=== PATIENT | male | born 1965 | race Caucasian/White ===

== ENCOUNTER 2016-05-01 14:29 | Inpatient (IN) | payer OTHER, MEDICARE ==
[~2016-05-01] VITALS: Ht 182.9 cm; Wt 127.0 kg
[~2016-05-01 14:29] MED LIST: ATIVAN1 M1 PO; Artane PO; BACTRIM DS 8001 TAB PO; CARBAMAZEPINE200 MG PO; CARDIZEM CD 12120 MG PO; CIPROFLOXACIN500 MG PO; CLEOCIN HCL150 MG PO; CLINDAMYCIN HC300 M1 PO; DEPAKOTE ER 25250 MG PO; DEPAKOTE ER500 M1 PO; DEPAKOTE SPRIN125 M1 PO; DEPAKOTE500 MG PO; DILTIAZEM HCL240 MG PO; DIVALPROEX SOD500 MG PO; ELIQUIS5 M1 PO; ELIQUIS5 MG PO; FUROSEMIDE20 M1 PO; FUROSEMIDE20 MG PO; HALDOL DECA100 MG/ML IM; HALOPERIDO100 MG/1 M IM; HALOPERIDOL; HALOPERIDOL IM; LASIX20 MG PO; LASIX40 MG PO; LOPRESSOR 12.12.5 MG PO; LOPRESSOR 25MG25 MG PO; METOPROLOL TART50 M1 PO; NAPROSYN500 M1 PO; PROVENTIL HFA6.7 GM INH; TEGRETOL200 MG PO; TIGAN250 MG PO; TRIHEXYPHENIDYL2 M1 PO; TRIHEXYPHENIDYL2 M2 PO; TRIHEXYPHENIDYL5 MG PO; ULTRAM50 M1 PO; VIGAMOX3 ML OPH; [UNRECOGNIZED DRUG - CODE] PO
--- NOTE | 2016-05-01 14:39 | NUR ---
PT TO ED FOR ? ADMISSION FOR CELLULITIS TO RIGHT LEG. PT WAS SENT TO ED FROM WOUND CENTER. AFEBRILE. DENIES FEVERS AT HOME. STATES RIGHT LEG IS RED AND WARM TO TOUCH.
--- NOTE | 2016-05-01 15:29 | ED SKIN/ALLERGY COMPLAINT ---
History of Present Illness General Chief Complaint: Lower Extremity Problems Stated Complaint: RT LEG ? CELLULITIS Source: patient, old records Exam Limitations: no limitations Vital Signs & Intake/Output Vital Signs & Intake/Output Vital Signs Date Time Temp Pulse Resp B/P Pulse O2 O2 Flow FiO2 Ox Delivery Rate 05/01 1823 100.6 104 20 115/76 94 Room Air 05/01 1557 99.8 110 20 122/94 98 Room Air 05/01 1436 98.3 120 20 117/87 96 Room Air Allergies Coded Allergies: amoxicillin (From AUGMENTIN) (Severe, ANGIOEDEMA, RASH 05/16/15) clavulanic acid (From AUGMENTIN) (Severe, ANGIOEDEMA, RASH 05/16/15) Penicillins (SWELLING 05/16/15) Reconcile Medications Albuterol Sulfate (Proventil Hfa) 6.7 GM HFA.AER.AD 2 PUF INH Q4 PRN BREATHING PROBLEMS (Reported) Apixaban (Eliquis) 5 MG TABLET 1 TAB PO BID BLOOD THINNER (Reported) Divalproex Sodium (Depakote ER) 500 MG TAB.ER.24H 1 TAB PO 4 TIMES/DAY MENTAL HEALTH (Reported) 500 MG AM, 500 MG NOON, 500 MG JEANNE, 625 MG AT BED TIME Divalproex Sodium (Depakote) 125 MG TABLET.DR 1 TAB PO AT BED TIME MENTAL HEALTH (Reported) Furosemide 20 MG TABLET 1 TAB PO DAILY DIURETIC (Reported) Haloperidol Decanoate 100 MG/1 ML VIAL 0.9 ML IM Q2W MENTAL HEALTH (Reported) Metoprolol Tartrate 50 MG TABLET 1 TAB PO BID HEART/BP (Reported) Trihexyphenidyl HCl 2 MG TABLET 1 TAB PO TID ANTISPASMODIC (Reported) 2 MG AT 8 AM, 5 PM AND 4 MG AT BED TIME Triage Note: PT TO ED FOR ? ADMISSION FOR CELLULITIS TO RIGHT LEG. PT WAS SENT TO ED FROM WOUND CENTER. AFEBRILE. DENIES FEVERS AT HOME. STATES RIGHT LEG IS RED AND WARM TO TOUCH. Triage Nurses Notes Reviewed? yes Onset: Abrupt Duration: getting worse Severity: severe Severity Numbers: 7 Location: extremities Possible Factors: no cause identified HPI: Patient is a 50-year-old man with past medical history significant for atrial fibrillation(on elliquis and cardizem), lymphedema,bipolar 1 disorder , schizophrenia who was advised to present to the emergency room by wound care for concerns of right lower extremity cellulitis patient describes a 24-hour history of gradual onset of worsening pain swelling and redness to his extremity. Patient has had multiple episodes of THIS in the past. Denies any shortness of breath fevers or chills. (VARUN GAXIOLA) Past History Travel History Traveled to [place] past 21 day No Medical History Any Pertinent Medical History? see below for history Neurological: NONE EENT: HEARING LOSS Cardiovascular: AFIB Respiratory: asthma Gastrointestinal: HEARTBURN Hepatic: NONE Renal: NONE Musculoskeletal: CHIP LEFT WRIST. Psychiatric: schizo affective disorder, rule out bipolar features Endocrine: NONE Blood Disorders: anemia Cancer(s): NONE TRUCKSMITH/Reproductive: NONE History of MRSA: Yes History of VRE: No History of CDIFF: No Tetanus Vaccine: 05/08/12 Surgical History Surgical History: non-contributory, N Psychosocial History Who do you live with Family Services at Home Nursing What is your primary language Bhutanese Tobacco Use: Quit >30 days ago ETOH Use: denies use Illicit Drug Use: denies illicit drug use Family History Family History, If Any: MOTHER FH: diabetes mellitus Hx Contributory? No (VARUN GAXIOLA) Review of Systems Review of Systems Constitutional: Reports: no symptoms. EENTM: Reports: no symptoms. Respiratory: Reports: no symptoms. Cardiovascular: Reports: see HPI, peripheral edema. GI: Reports: no symptoms. Genitourinary: Reports: no symptoms. Musculoskeletal: Reports: no symptoms. Skin: Reports: see HPI, erythema. Neurological/Psychological: Reports: no symptoms. Hematologic/Endocrine: Reports: no symptoms. Immunologic/Allergic: Reports: no symptoms. All Other Systems: Reviewed and Negative (VARUN GAXIOLA) Physical Exam Physical Exam General Appearance: no apparent distress, alert, comfortable Skin: intact Comments: Well-developed well-nourished person in no acute distress HEENT: Normal EENT exam, Neck: Supple, no lymphadenopathy, normal range of motion without pain or tenderness Back: Nontender, no CVA tenderness. Cardiovascular: Regular rate and rhythms no murmurs rubs or gallops, normal JVP Respiratory: Chest nontender. No respiratory distress.breath sounds clear to auscultation bilaterally Abdomen: Soft, nontender nondistended, no appreciable organomegaly. Normal bowel sounds. No ascites Extremity: No edema, no calf tenderness to palpation, normal and equal pulses. Neuro: Alert oriented x3, motor sensory normal, Psych: Mood and affect is normal, memory and judgment is normal.t. Diagram Body: 1) Circumferential erythema warmth tenderness noted and swelling (SONIDO PRUETT,VARUN) Progress Differential Diagnosis: abscess/cellulitis, allergic reaction, anaphylaxis, angioedema, drug reaction, erythema multiforme, lyme disease, meningitis/sepsis, RMSF, scarlet fever, shingles, syphilis/gonococcemia, urticaria, SEPSIS dvt Plan of Care: Orders Procedure Date/time Status Heart Healthy Diet 05/02 B Active HEPATIC FUNCTION PANEL 05/02 06 Active CBC WITHOUT DIFFERENTIAL 05/02 06 Active BASIC ELECTROLYTES PLUS BUN&CR 05/02 06 Active Vital Signs 05/01 1938 Active Teach/Educate 05/01 1938 Active Nutritional Intake, Monitor 05/01 1938 Active Isolation 05/01 1938 Active Intake & Output 05/01 1938 Active Patient Care Conference 05/01 1938 Active Activity/Ambulation 05/01 1938 Active Pathway - chart 05/01 192 Active House Staff 05/01 192 Active Patient Data 05/01 1921 Active Code Status 05/01 1921 Active Admit to inpatient 05/01 1802 Active Vital Signs 05/01 1802 Active Patient Data 05/01 1758 Active EKG 05/01 1757 Active Intake & Output 05/01 1740 Active BLOOD CULTURE 05/01 1543 Active COMPREHENSIVE METABOLIC PANEL 05/01 1543 Complete CBC WITHOUT DIFFERENTIAL 05/01 1543 Complete VTE Mechanical Prophylaxis 05/01 UNK Active Current Medications Sig/Fatou Start time Last Medication Dose Stop Time Status Admin Furosemide 20 MG DAILY 05/02 1000 AC (Lasix) Vancomycin HCl 1,000 MG DAILY 05/02 1000 AC Dextrose/Water 250 ML (D5W) Apixaban 5 MG BID 05/01 2199 AC (Eliquis) Divalproex Sodium 125 MG AT BEDTIME 05/01 2199 AC (Depakote) Metoprolol Tartrate 50 MG BID 05/01 2199 AC (Lopressor) Trihexyphenidyl HCl 2 MG TID 05/01 2199 AC (Artane) Divalproex Sodium 500 MG FOUR TIMES A DAY 05/01 2100 AC (Depakote) Clindamycin 600 MG ONCE ONE 05/01 1630 CAN (Cleocin) 05/01 1659 Dextrose/Water 50 ML (D5W) Laboratory Tests 05/01/16 1540: Anion Gap 13, Estimated GFR > 60, BUN/Creatinine Ratio 20.0, Glucose 92, Calcium 9.8, Total Bilirubin 1.5 H, AST 59, ALT 56, Alkaline Phosphatase 55, Total Protein 8.0, Albumin 4.5, Globulin 3.5, Albumin/Globulin Ratio 1.3, CBC w Diff MAN DIFF ORDERED, RBC 4.46 L, MCV 95.1 H, MCH 31.5 H, RDW 14.6 H, MPV 8.1, Segmented Neutrophils 49, Band Neutrophils 2, Lymphocytes 34, Monocytes 15 H, Platelet Estimate DECREASED, Anisocytosis 1+, Macrocytic Cells 1+, PUBS MCHC 33.1 Microbiology 05/01 1550 BLOOD: Blood Culture - RECD 05/01 1546 BLOOD: Blood Culture - RECD Discussed disposition plan with Dr. Vargas who agrees with [facility] admission patient also has significant concerns of MRSA where IV clindamycin in the past was UNresponsive to patient's last cellulitis infection which vancomycin did improve patient's symptoms this was administered (VARUN GAXIOLA) Initial ED EK BPM MOTION ARTIFACT NOTED SINUS RHYTHM UNCHANGED FROM PREVIOUS Prior EKG: unchanged (VARUN GAXIOLA) Departure Departure Disposition: STILL A PATIENT Condition: Stable Clinical Impression Primary Impression: Cellulitis of right leg Referrals: GLADIS VARGAS MD (PCP/Family) Departure Forms: Customer Survey General Discharge Information Admission Note Spoke With: GLADIS VARGAS MD Documentation of Exam: Documentation of any treatments & extenuating circumstances including Concerns Regarding Discharge (functional status, medication knowledge or non-compliance, living conditions, etc.) that warrant an admission rather than observation: [ Discussed patient with Dr. Vargas who agrees with general medicine admission for concerns of acute onset of right leg cellulitis which patient has a significant history of previous episodes and MRSA positive in which patient requires infectious disease consultation, IV antibiotics and close monitoring of significant onset of right leg cellulitis.] (VARUN GAXIOLA) PA/ARBORICULTURE INSTRUCTOR Co-Sign Statement Statement: ED Attending supervision documentation- [x] I saw and evaluated the patient. I have also reviewed all the pertinent lab results and diagnostic results. I agree with the findings and the plan of care as documented in the PA's/ARBORICULTURE INSTRUCTOR's documentation. [] I have reviewed the ED Record and agree with the PA's/ARBORICULTURE INSTRUCTOR's documentation. [] Additions or exceptions (if any) to the PAs/ARBORICULTURE INSTRUCTOR's note and plan are summarized below: [] (AUDREY SHERWOOD DO)
--- NOTE | 2016-05-01 15:58 | NUR ---
LABS AND BC XS 2 SENT AT THIS TIME
[2016-05-01 16:00] LABS: HEMATOCRIT 42.4 % (42-52); MEAN CORPUSCULAR HGB 31.5 PG (27.0-31.0); MEAN CORPUSCULAR HGB CONC 33.1 G/DL (33.0-37.0); MEAN CORPUSCULAR VOLUME 95.1 FL (80.0-94.0); MEAN PLATELET VOLUME 8.1 FL (7.4-10.4); PLATELET COUNT 128 /CUMM (130-400); RBC DISTRIBUTION WIDTH 14.6 % (11.5-14.5); RED BLOOD CELL CT 4.46 /CUMM (4.70-6.10); WHITE BLOOD CELL COUNT 11.2 /CUMM (4.8-10.8)
--- NOTE | 2016-05-01 17:41 | NUR ---
IV HEPLOCK # [address] PLACE TO TERRANCE BY SHARI ORTIZ, IV VANCOMYCIN 1GM INFUSING WITHOUT DIFFICULTY AT THIS TIME. PT RESTING COMFORTALBY ON STRETCHER AT THIS TIME. BILATERAL LOWER LEGS EDEMATOUS AND RED, RLE REDNESS GREATER THAN LEFT.
--- NOTE | 2016-05-01 18:09 | NUR ---
PT OK TO TAKE PM MEDS PER VARUN PRUETT. CMR UPDATED WITH PT, FOR ADMISSION. IV VANCOMYCIN CONTINUES TO INFUSE WITHOUT DIFFICULTY.
--- NOTE | 2016-05-01 18:53 | NUR ---
PT BED ASSIGNMENT IS 205-
--- NOTE | 2016-05-01 19:17 | NUR ---
REPORT CALLED TO [address] [place] [address] LUCY DANIEL CALLED FOR TRANSPORT TO ROOM # [id number].
--- NOTE | 2016-05-01 19:24 | History & Physical ---
See Addendum HYACINTH DORADO 05/01/161922: General Information and HPI MD Statement: I have seen and personally examined JACK HALE and documented this H&P. The patient is a 50 year old M who presented with a patient stated chief complaint of pain in his left lower extremity and swelling 1 day. Source of Information: patient, old records Exam Limitations: no limitations History of Present Illness: Mr Hale is a 50-year-old man was known to be in his usual state of health until one day ago. He has a past history of atrial fibrillation (on NOAC), bipolar disorder, schizophrenia, hearing loss, chronic bilateral lower extremity edema. He was sent from the wound clinic, after it was noticed that, he had an increased redness and swelling of right lower extremity. As per the patient, he noticed pain and redness in right lower extremity that started 1 day ago. Pain severity 7/10, with no radiation, with inability to walk due to pain. Redness noticed one day ago, after he "popped" , small blister-like lesion on right lower extremity. Noticed being hot, but did not record his temperature. Reported increased shortness of breath, after doing unusual activity such as walking for longer distance. No change in pedal edema. No chest pain, palpitations were noted. No abdominal pain, changes in bladder or bowel habit. no discharge from right leg. Follows Dr. Martinez (cardiology), Dr. Holland (vascular surgeon for venous stasis) , Dr. Vargas for PCP. Allergies/Medications Allergies: Coded Allergies: amoxicillin (From AUGMENTIN) (Severe, ANGIOEDEMA, RASH 05/16/15) clavulanic acid (From AUGMENTIN) (Severe, ANGIOEDEMA, RASH 05/16/15) Penicillins (SWELLING 05/16/15) Past History Travel History Traveled to [place] past 21 day No Medical History Neurological: NONE EENT: HEARING LOSS Cardiovascular: AFIB Respiratory: asthma Gastrointestinal: HEARTBURN Hepatic: NONE Renal: NONE Musculoskeletal: CHIP LEFT WRIST. Psychiatric: schizo affective disorder, rule out bipolar features Endocrine: NONE Blood Disorders: anemia Cancer(s): NONE CHRONIC DISEASE MANAGER/Reproductive: NONE History of MRSA: Yes Active MRSA Infection: Yes History of VRE: No History of CDIFF: No Tetanus Vaccine: 05/08/12 Surgical History Surgical History: non-contributory, N Past Family/Social History Family History Relations & Conditions if any MOTHER FH: diabetes mellitus Psychosocial History Services at Home: Nursing ETOH Use: denies use Illicit Drug Use: denies illicit drug use Review of Systems Review of Systems Constitutional: Reports: fever, malaise, weakness. Denies: chills. EENTM: Denies: visual changes. Cardiovascular: Reports: edema. Denies: chest pain. Respiratory: Reports: short of breath. Denies: cough, orthopnea. GI: Denies: abdominal pain, melena. Genitourinary: Denies: frequency, nocturia. Musculoskeletal: Denies: back pain, joint pain. Skin: Reports: change in skin color, dryness, erythema, lesions. Neurological/Psychological: Denies: anxiety, emotional problems. Hematologic/Endocrine: Denies: bruising, bleeding. Exam & Diagnostic Data Last 24 Hrs of Vital Signs/I&O Vital Signs Date Time Temp Pulse Resp B/P Pulse O2 O2 Flow FiO2 Ox Delivery Rate 05/01 2201 90 118/86 05/01 1959 99.9 100 19 118/86 91 Room Air 05/01 1823 100.6 104 20 115/76 94 Room Air 05/01 1557 99.8 110 20 122/94 98 Room Air 05/01 1436 98.3 120 20 117/87 96 Room Air Intake & Output 05/01 1600 05/01 0800 05/01 0000 Intake Total Output Total Balance Patient 280 lb Weight Physical Exam General Appearance Alert, Oriented X3, Cooperative, No Acute Distress Skin edema and tenderness on right lower extremity extending from left ankle up to right knee. HEENT Atraumatic, PERRLA, EOMI Neck Supple, No JVD, No thryomegaly, +2 Carotid Pulse wo Bruit Lymphatic Cervical nl Cardiovascular Regular Rate, Normal S1, Normal S2, No Murmurs, Gallops Lungs Clear to Auscultation, Normal Air Movement Abdomen Normal Bowel Sounds, Soft, No Tenderness, No Hepatospenomegaly Neurological Normal Speech, Strength at 5/5 X4 Ext, Normal Tone, Sensation Intact, Cranial Nerves 3-12 NL, Reflexes 2+ Extremities No Clubbing, No Cyanosis, Normal Pulses, venous stasis-related discoloration bilateral lower extremities extending up to knees Vascular Pulses Symmetrical Assessment/Plan Assessment: He is a middle-aged man with history of bipolar disorder is being evaluated for pain and swelling of right lower extremity likely from cellulitis. At the time of admission, temperature 98.3, pulse rate 120, respiratory rate 20, blood pressure 117/87, pulse ox-96% on room air. Laboratory findings indicated WBC 7.2, hemoglobin 14.0, electrolytes-sodium 133, potassium 4.4, BUN 14, serum creatinine 0.7, total bilirubin 1.5 (slightly elevated), AST 59, AST 56 ( slightly elevated likely hepatic steatosis), alkaline phosphatase 55. Differential diagnosis: #1 cellulitis of right lower extremity#2 chronic venous stasis Below is the problem list and plan: #1 swelling and redness of right lower extremity-likely due to cellulitis. Low- grade fever and leukocytosis noted. However, no band neutrophils were seen. Incidental finding of monocytosis seen, indicating an sub-acute infection. Patient was started on vancomycin. As per the patient, he is severely allergic to penicillin. Continue to monitor fever and leukocytosis. Follow blood cultures. #2 mental health-continue home dose of Depakote. Continue to hold Haldol reassess in the a.m. #3 atrial fibrillation-on anticoagulation and rate controlling medication. EKG revealed pulse rate 101, QTc 460. Continue to monitor closely. #4 DVT prophylaxis- Eliquis. #5 diet-CHF diet. As Ranked By This Provider Problem List: 1. Cellulitis of right leg 2. Blister (nonthermal), left lower leg, initial encounter Core Measures/Miscellaneous Acute Coronary Syndrome ACS Diagnosis: No Cerebrovascular Accident CVA/TIA Diagnosis: No Congestive Heart Failure CHF Diagnosis: No Venous Thromboembolism VTE Risk Factors: Acute medical illness, Age > 40 VTE Prophylaxis Ordered Inpt: Pharm- Eliquis No [facility] VTE prophylaxis d/t: No contraindications No VTE Pharm Prophylaxis d/t: No contraindications VTE Diagnosis: No VTE Type: NONE VTE Confirmed by (Test): NONE Severe Sepsis Severe Sepsis Present: No Septic Shock Septic Shock Present: No Miscellaneous Documentation Attending Case Discussed With: GLADIS VARGAS MD Primary Care Physician: GLADIS VARGAS MD Patient sees these Specialists Dr. Skyler Acosta Level of Patient Care: General Medicine GIULIANO RIOS 05/01/161944: General Information and HPI Allergies/Medications Home Med list Albuterol Sulfate (Proventil Hfa) 6.7 GM HFA.AER.AD 2 PUF INH Q4 PRN BREATHING PROBLEMS (Reported) Apixaban (Eliquis) 5 MG TABLET 1 TAB PO BID BLOOD THINNER (Reported) Divalproex Sodium (Depakote ER) 500 MG TAB.ER.24H 1 TAB PO 4 TIMES/DAY MENTAL HEALTH (Reported) 500 MG AM, 500 MG NOON, 500 MG JEANNE, 625 MG AT BED TIME Divalproex Sodium (Depakote) 125 MG TABLET.DR 1 TAB PO AT BED TIME MENTAL HEALTH (Reported) Furosemide 20 MG TABLET 1 TAB PO DAILY DIURETIC (Reported) Haloperidol Decanoate 100 MG/1 ML VIAL 0.9 ML IM Q2W MENTAL HEALTH (Reported) Metoprolol Tartrate 50 MG TABLET 1 TAB PO BID HEART/BP (Reported) Trihexyphenidyl HCl 2 MG TABLET 1 TAB PO TID ANTISPASMODIC (Reported) 2 MG AT 8 AM, 5 PM AND 4 MG AT BED TIME Resident Review Statement Resident Statement: agreed with commander internal affairs Other Findings: He is 50-year-old man with past medical history of atrial fibrillation on adequate, bipolar, schizophrenia, asthma, diastolic heart failure, chronic bilateral lower extremity edema and venous stasis changes, obstructive sleep apnea on CPAP at night, history of of MRSA positive in nares and C. difficile was sent in from [facility] for right lower extremity redness and swelling. Patient reports having a small pimple on lateral side of right lower extremity that he scraped off yesterday. He noticed mild redness and swelling yesterday but when he woke up this morning with redness and swelling was increased. He was also feeling pain in his leg was warm. He denies any fever, chills. Other review of systems negative. He lives with his friend. Walks with cane. Vitals on admission: Temperature 98.3 that went up to 100.6, pulse 120, respiratory rate 20, blood pressure 117/87 oxygen saturation 96% on room air Positive physical exam findings: Irregularly irregular on Cardec auscultation. Right lower extremity is red, warm and swollen. Tender to touch. Chronic bilateral lower extremity swelling with venous stasis changes. R>L. fungal infection of toes. Pertinent labs: WBC count 11.2, sodium 133 (baseline), total bili 1.5 EKG: Atrial fibrillation with no acute ST-T wave changes Assessment and plan He is 50-year-old man with past medical history of atrial fibrillation on adequate, bipolar, schizophrenia, asthma, diastolic heart failure, chronic bilateral lower extremity edema and venous stasis changes, obstructive sleep apnea on CPAP at night, history of of MRSA positive in nares and C. difficile is going to be admitted on general medicine floor for right lower extremity cellulitis. Vitals every shift. We will continue IV vancomycin. Follow-up blood cultures. Leg elevation. Continue his home medications. Patient receives 0.9 mL IM Haldol every 2 weeks. I'm holding it right now. If patient becomes agitated or irritable that we can give him low dose of by mouth/IM Haldol. ID consult in a.m. DVT prophylaxis, patient is on Eliquis Heart healthy diet Pain management pathway Full code
[2016-05-01] MEDS ORDERED: DEPAKOTE125 M1 PO (19:35)
--- NOTE | 2016-05-01 19:55 | Admission Certification ---
Admission Certification Certification Statement - As attending physician, I certify that at the time of - admission, based on clinical presentation, severity of - symptoms, need for further diagnostic testing and - therapeutic interventions, and risk of adverse outcomes - without in-hospital treatment, in my clinical assessment, - this patient requires an acute hospital stay for a minimum - of two nights or longer. I have also considered psychsocial - factors such as support system, advanced age, financial - issues, cognitive issues, and failed out-patient treatments, - past re-admission history, safety of patient, and lack of - compliance as applicable. Specific rationale supporting this admission is: Recurring cellulitis of right leg needs IV antibiotics
--- NOTE | 2016-05-01 19:58 | PN- Att Addend ---
Attending Addendum Attending Brief Note 50 year old male again started with increased redness of the right leg went to wound center and was sent to the ER needs IV antibiotics check cultures ID [email or web address] , follow up by wound center and probably his vascular specialist. Vital Signs Date Time Temp Pulse Resp B/P Pulse O2 O2 Flow FiO2 Ox Delivery Rate 05/01 1823 100.6 104 20 115/76 94 Room Air 05/01 1557 99.8 110 20 122/94 98 Room Air 05/01 1436 98.3 120 20 117/87 96 Room Air Laboratory Tests 05/01/16 1540: Anion Gap 13, Estimated GFR > 60, BUN/Creatinine Ratio 20.0, Glucose 92, Calcium 9.8, Total Bilirubin 1.5 H, AST 59, ALT 56, Alkaline Phosphatase 55, Total Protein 8.0, Albumin 4.5, Globulin 3.5, Albumin/Globulin Ratio 1.3, CBC w Diff MAN DIFF ORDERED, RBC 4.46 L, MCV 95.1 H, MCH 31.5 H, RDW 14.6 H, MPV 8.1, Segmented Neutrophils 49, Band Neutrophils 2, Lymphocytes 34, Monocytes 15 H, Platelet Estimate DECREASED, Anisocytosis 1+, Macrocytic Cells 1+, PUBS MCHC 33.1 Microbiology Date/Time Procedure - Status Source Growth 05/01 1550 Blood Culture - RECD BLOOD Orders Procedure Date/time Status Heart Healthy Diet 05/02 B Active HEPATIC FUNCTION PANEL 05/02 0600 Active CBC WITHOUT DIFFERENTIAL 05/02 0600 Active BASIC ELECTROLYTES PLUS BUN&CR 05/02 0600 Active Vital Signs 05/01 193 Active Teach/Educate 05/01 1938 Active Nutritional Intake, Monitor 05/01 1938 Active Isolation 05/01 193 Active Intake & Output 05/01 1938 Active Patient Care Conference 05/01 1938 Active Activity/Ambulation 05/01 1938 Active Pathway - chart 05/01 192 Active House Staff 05/01 1921 Active Patient Data 05/01 1921 Active Code Status 05/01 1921 Active Admit to inpatient 05/01 1802 Active Vital Signs 05/01 1802 Active Patient Data 05/01 1758 Active EKG 05/01 1757 Active Intake & Output 05/01 1740 Active BLOOD CULTURE 05/01 1543 Active COMPREHENSIVE METABOLIC PANEL 05/01 1543 Complete CBC WITHOUT DIFFERENTIAL 05/01 1543 Complete VTE Mechanical Prophylaxis 05/01 UNK Active
[2016-05-01 19:59] VITALS: BP 118/86
--- NOTE | 2016-05-02 | NUR ---
NURSING NOTE; LATE ENTRY; PT ADMITTED TO ROOM 205- FROM ER VIA STRETCHER AT 1940. PT AMBULATED TO BED WITH AN ASSISTX1, UNSTEADY GAIT NOTED. PT A/OX3, PT DENIES CP, PT DENIES SOB. PT RLE EDEMATOUS, SWOLLEN, RED AND WARM TO TOUCH. PT LLE BROWN DISCOLORATION. +PULSES PRESENT. PT DENIES PAIN AT THIS TIME. PT ORIENTED TOR OOM AND CALL GUNN. WILL CONTINUE TO MONITOR.
[2016-05-02 00:08] VITALS: BP 104/78
[2016-05-02 07:58] LABS: ABSOLUTE BASOPHIL COUNT 0 /CUMM (0.0-0.2); ABSOLUTE EOSINOPHIL COUNT 0 /CUMM (0.0-0.7); ABSOLUTE GRANULOCYTE CT 3.9 /CUMM (1.4-6.5); ABSOLUTE LYMPH COUNT 3.3 /CUMM (1.2-3.4); ABSOLUTE MONOCYTE COUNT 2.1 /CUMM (0.10-0.60); BASOPHIL % 0.3 % (0.0-2.0); EOSINOPHIL % 0.3 % (0-5); GRANULOCYTE % 41.3 % (42.2-75.2); HEMATOCRIT 39.9 % (42-52); MEAN CORPUSCULAR VOLUME 94.1 FL (80.0-94.0); MEAN PLATELET VOLUME 8.1 FL (7.4-10.4); PLATELET COUNT 104 /CUMM (130-400); RBC DISTRIBUTION WIDTH 14.3 % (11.5-14.5); RED BLOOD CELL CT 4.24 /CUMM (4.70-6.10)
--- NOTE | 2016-05-02 08:00 | PN- Housestaff ---
Subjective Follow-up For: Cellulitis of left lower extremity Subjective: Patient comfortable this morning. Low-grade temperature 100.6 in the last 24 hours. Tenderness and erythema decreased on the right lower extremity. Vitals remain stable. Review of Systems Constitutional: Reports: see HPI. Objective Last 24 Hrs of Vital Signs/I&O Vital Signs Date Time Temp Pulse Resp B/P Pulse O2 O2 Flow FiO2 Ox Delivery Rate 05/02 0554 87 96 05/02 0129 78 95 05/02 0008 98.2 82 20 104/78 95 Room Air 05/01 2201 90 118/86 05/01 1959 99.9 100 19 118/86 91 Room Air 05/01 1823 100.6 104 20 115/76 94 Room Air 05/01 1557 99.8 110 20 122/94 98 Room Air 05/01 1436 98.3 120 20 117/87 96 Room Air Intake & Output 05/02 1600 05/02 0800 05/02 0000 Intake Total 700 Output Total 250 Balance 450 Intake, IV 250 Intake, Oral 450 Output, Urine 250 Patient 280 lb Weight Physical Exam General Appearance: No Acute Distress Other Physical Findings: General Exam: AAOx3, No acute distress, Skin: No rashes, no breakdown HEENT: PERRLA, EOMI Neck: Supple, No JVD No cervical lymphadenopathy CVS: Reg Rate, Normal S1,S2, No MGR Resp: Normal air entry, no ronchi/rales Abdomen: Soft, No tenderness, Normal Bowel Sounds Neuro: Normal Speech, Strength 5/5 b/l x 4 extremities, Sensation intact, CN III -XII NL, Reflexes 2+ Extremities: No cyanosis, No pedal edema, erythema on the right lower extremity extending from ankle to middle of correa. Current Medications: Current Medications Sig/Fatou Start time Last Medication Dose Route Stop Time Status Admin Acetaminophen 650 MG Q6P PRN 05/01 2030 AC PO Apixaban 5 MG BID 05/01 2199 AC PO Clindamycin 600 MG ONCE ONE 05/01 1630 CAN Dextrose/Water 50 ML IV 05/01 165 Divalproex Sodium 125 MG AT BEDTIME 05/01 2199 AC 05/01 PO 215 Divalproex Sodium 500 MG FOUR TIMES A DAY 05/01 2100 AC 05/01 PO 204 Furosemide 20 MG DAILY 05/02 1000 AC PO Metoprolol Tartrate 50 MG BID 05/01 2199 AC PO Trihexyphenidyl HCl 2 MG TID 05/01 2199 AC 05/01 PO 2159 Vancomycin HCl 1,000 MG Q24H 05/02 1700 AC Dextrose/Water 250 ML IV Vancomycin HCl 0 .STK-MED ONE 05/01 1732 DC .ROUTE Vancomycin HCl 1,000 MG ONCE ONE 05/01 1715 DC 05/01 Dextrose/Water 250 ML IV 05/01 1814 1730 Last 24 Hrs of Lab/Tushar Results Last 24 Hrs of Labs/Mics: Laboratory Tests 05/02/16 0630: Sodium Pending, Potassium Pending, Chloride Pending, Carbon Dioxide Pending, Anion Gap Pending, BUN Pending, Creatinine Pending, BUN/Creatinine Ratio Pending , Total Bilirubin Pending, Direct Bilirubin Pending, AST Pending, ALT Pending, Alkaline Phosphatase Pending, Total Protein Pending, Albumin Pending, CBC w Diff Pending, WBC Pending, RBC Pending, Hgb Pending, Hct Pending, MCV Pending, MCH Pending, RDW Pending, Plt Count Pending, MPV Pending, PUBS MCHC Pending 05/01/16 1540: Anion Gap 13, Estimated GFR > 60, BUN/Creatinine Ratio 20.0, Glucose 92, Calcium 9.8, Total Bilirubin 1.5 H, AST 59, ALT 56, Alkaline Phosphatase 55, Total Protein 8.0, Albumin 4.5, Globulin 3.5, Albumin/Globulin Ratio 1.3, CBC w Diff MAN DIFF ORDERED, RBC 4.46 L, MCV 95.1 H, MCH 31.5 H, RDW 14.6 H, MPV 8.1, Segmented Neutrophils 49, Band Neutrophils 2, Lymphocytes 34, Monocytes 15 H, Platelet Estimate DECREASED, Anisocytosis 1+, Macrocytic Cells 1+, PUBS MCHC 33.1 Microbiology 05/01 1550 BLOOD: Blood Culture - RECD 05/01 1546 BLOOD: Blood Culture - RECD Assessment/Plan Assessment: He is a middle-aged man with history of bipolar disorder is being evaluated for pain and swelling of right lower extremity likely from cellulitis. Differential diagnosis: #1 cellulitis of right lower extremity#2 chronic venous stasis Below is the problem list and plan: #1 swelling and redness of right lower extremity-likely due to cellulitis. Low- grade fever and leukocytosis noted. However, no band neutrophils were seen. Incidental finding of monocytosis seen, indicating an sub-acute infection. Patient was started on vancomycin, which has been changed to doxycycline as per infectious disease microsoft dynamics consultant. As per the patient, he is severely allergic to penicillin. Continue to monitor fever and leukocytosis. Follow blood cultures. #2 mental health-continue home dose of Depakote. Continue to hold Haldol reassess in the a.m. #3 atrial fibrillation-on anticoagulation and rate controlling medication. Continue to monitor closely. #4 DVT prophylaxis- Eliquis. #5 diet-CHF diet. Problem List: 1. Cellulitis of right leg 2. Blister (nonthermal), left lower leg, initial encounter 3. Chronic pain 4. Dependent edema Pain Ratin Pain Location: Right lower extremity Pain Goal: Pain 4 or less Pain Plan: Tylenol when necessary Tomorrow's Labs & Rationales: Basic electrolyte panel-patient had mild hyponatremia. To monitor. DVT/Prophylaxis: pharmacological (eliquis)
[2016-05-02 08:25] VITALS: BP 130/72
[2016-05-02 09:04] LABS: WHITE BLOOD CELL COUNT 9.4 /CUMM (4.8-10.8)
--- NOTE | 2016-05-02 09:58 | PN- Att Addend ---
Attending Addendum Attending Brief Note Patient sitting in the chair, the leg seems little bit less swollen is still red. Temp max was 100.6 last evening after brighter this morning white count is down a little bit. No other major changes will continue antibiotics IV get ID input to make sure were giving him the right antibiotic, also check the blood cultures. Current Medications Sig/Fatou Start time Last Medication Dose Route Stop Time Status Admin Acetaminophen 650 MG Q6P PRN 05/01 2030 AC PO Apixaban 5 MG 0800,1700 05/02 1700 AC PO Apixaban 5 MG BID 05/01 2200 DC 05/02 PO 0828 Clindamycin 600 MG ONCE ONE 05/01 1630 CAN Dextrose/Water 50 ML IV 05/01 165 Divalproex Sodium 125 MG AT BEDTIME 05/01 2199 AC 05/01 PO 2159 Divalproex Sodium 500 MG FOUR TIMES A DAY 05/01 2100 AC 05/02 PO 0828 Furosemide 20 MG DAILY 05/02 1000 AC 05/02 PO 0828 Metoprolol Tartrate 50 MG 0800,1700 05/02 1700 AC PO Metoprolol Tartrate 50 MG BID 05/01 2200 DC 05/02 PO 0828 Trihexyphenidyl HCl 2 MG TID 05/01 220 AC 05/02 PO 0828 Vancomycin HCl 1,000 MG Q24H 05/02 1700 AC Dextrose/Water 250 ML IV Vancomycin HCl 0 .STK-MED ONE 05/01 1732 DC .ROUTE Vancomycin HCl 1,000 MG ONCE ONE 05/01 1715 DC 05/01 Dextrose/Water 250 ML IV 05/01 1814 1730 Laboratory Tests 05/02/16 0630: Anion Gap 9, Estimated GFR > 60, BUN/Creatinine Ratio 23.3, Total Bilirubin 1.6 H, Direct Bilirubin 0.8 H, AST 47, ALT 49, Alkaline Phosphatase 38, Total Protein 6.7, Albumin 3.5, CBC w Diff NO MAN DIFF REQ, RBC 4.24 L, MCV 94.1 H, MCH 32.0 H, RDW 14.3, MPV 8.1, Gran % 41.3 L, Lymphocytes % 35.5, Monocytes % 22.6 H, Eosinophils % 0.3, Basophils % 0.3, Absolute Granulocytes 3.9, Absolute Lymphocytes 3.3, Absolute Monocytes 2.1 H, Absolute Eosinophils 0, Absolute Basophils 0, PUBS MCHC 34.0 05/01/16 1540: Anion Gap 13, Estimated GFR > 60, BUN/Creatinine Ratio 20.0, Glucose 92, Calcium 9.8, Total Bilirubin 1.5 H, AST 59, ALT 56, Alkaline Phosphatase 55, Total Protein 8.0, Albumin 4.5, Globulin 3.5, Albumin/Globulin Ratio 1.3, CBC w Diff MAN DIFF ORDERED, RBC 4.46 L, MCV 95.1 H, MCH 31.5 H, RDW 14.6 H, MPV 8.1, Segmented Neutrophils 49, Band Neutrophils 2, Lymphocytes 34, Monocytes 15 H, Platelet Estimate DECREASED, Anisocytosis 1+, Macrocytic Cells 1+, PUBS MCHC 33.1 Microbiology Date/Time Procedure - Status Source Growth 05/01 1550 Blood Culture - RECD BLOOD 05/01 1546 Blood Culture - RECD BLOOD Vital Signs Date Time Temp Pulse Resp B/P Pulse O2 O2 Flow FiO2 Ox Delivery Rate 05/02 0825 98.1 94 20 130/72 91 Room Air 05/02 0554 87 96
--- NOTE | 2016-05-02 13:53 | Cons- Infect Disease ---
General Information and HPI Consulting Request Date of Consult: 05/02/16 Requested By: GLADIS DIXON MD Reason for Consult: R LE cellulitis Source of Information: patient, primary team Exam Limitations: no limitations History of Present Illness: 50-year-old man was known with atrial fibrillation (on NOAC), bipolar disorder, schizophrenia, hearing loss, chronic bilateral lower extremity edema was sent to the hospital from the wound clinic on 05/01/16, after it was noticed that, he had an increased redness and swelling of right lower extremity. 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 Intial lesion on R LE "popped" and was small blister-like. He felt warm, but did not record his temperature. Treated w/ iv vancomycin since admission is clinically improving, although low zain fever 100.6 F past 24 h. He denies chest pain, palpitations, abdominal pain, changes in bladder or bowel movemnets. Allergies/Medications Allergies: Coded Allergies: amoxicillin (From AUGMENTIN) (Severe, ANGIOEDEMA, RASH 05/16/15) clavulanic acid (From AUGMENTIN) (Severe, ANGIOEDEMA, RASH 05/16/15) Penicillins (SWELLING 05/16/15) Home Med List: Albuterol Sulfate (Proventil Hfa) 6.7 GM HFA.AER.AD 2 PUF INH Q4 PRN BREATHING PROBLEMS (Reported) Apixaban (Eliquis) 5 MG TABLET 1 TAB PO BID BLOOD THINNER (Reported) Divalproex Sodium (Depakote ER) 500 MG TAB.ER.24H 1 TAB PO 4 TIMES/DAY MENTAL HEALTH (Reported) 500 MG AM, 500 MG NOON, 500 MG JEANNE, 625 MG AT BED TIME Divalproex Sodium (Depakote) 125 MG TABLET.DR 1 TAB PO AT BED TIME MENTAL HEALTH (Reported) Furosemide 20 MG TABLET 1 TAB PO DAILY DIURETIC (Reported) Haloperidol Decanoate 100 MG/1 ML VIAL 0.9 ML IM Q2W MENTAL HEALTH (Reported) Metoprolol Tartrate 50 MG TABLET 1 TAB PO BID HEART/BP (Reported) Trihexyphenidyl HCl 2 MG TABLET 1 TAB PO TID ANTISPASMODIC (Reported) 2 MG AT 8 AM, 5 PM AND 4 MG AT BED TIME Current Medications: Current Medications Sig/Fatou Start time Last Medication Dose Route Stop Time Status Admin Acetaminophen 650 MG Q6P PRN 05/01 2030 AC PO Apixaban 5 MG 0800,1700 05/02 1700 AC PO Apixaban 5 MG BID 05/01 2200 DC 05/02 PO 0828 Clindamycin 600 MG ONCE ONE 05/01 1630 CAN Dextrose/Water 50 ML IV 05/01 1659 Divalproex Sodium 125 MG AT BEDTIME 05/01 2200 AC 05/01 PO 2159 Divalproex Sodium 500 MG FOUR TIMES A DAY 05/01 2100 AC 05/02 PO 1302 Furosemide 20 MG DAILY 05/02 1000 AC 05/02 PO 0828 Metoprolol Tartrate 50 MG 0800,1700 05/02 1700 AC PO Metoprolol Tartrate 50 MG BID 05/01 2200 DC 05/02 PO 0828 Trihexyphenidyl HCl 2 MG TID 05/01 2200 AC 05/02 PO 0828 Vancomycin HCl 1,000 MG Q24H 05/02 1700 AC Dextrose/Water 250 ML IV Vancomycin HCl 0 .STK-MED ONE 05/01 1732 DC .ROUTE Vancomycin HCl 1,000 MG ONCE ONE 05/01 1715 DC 05/01 Dextrose/Water 250 ML IV 05/01 1814 1730 Past History Travel History Traveled to [place] past 21 day No Medical History Blood Transfusion Hx: No Neurological: NONE EENT: HEARING LOSS Cardiovascular: AFIB Respiratory: asthma Gastrointestinal: HEARTBURN Hepatic: NONE Renal: NONE Musculoskeletal: CHIP LEFT WRIST. 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 Home Services at Home: Nursing Smoking Status: Former Smoker ETOH Use: denies use Illicit Drug Use: denies illicit drug use Review of Systems Comments 12 points reviewed as noted, otherwise negative. Exam & Diagnostic Data Last 24 Hrs of Vital Signs/I&O Vital Signs Date Time Temp Pulse Resp B/P Pulse O2 O2 Flow FiO2 Ox Delivery Rate 05/02 0826 22 95 Nasal 2.0L Cannula 05/02 0825 98.1 94 20 130/72 91 Room Air 05/02 0800 95 Nasal 2.0L Cannula 05/02 0554 87 96 05/02 0129 78 95 05/02 0008 98.2 82 20 104/78 95 Room Air 05/01 2201 90 118/86 05/01 1959 99.9 100 19 118/86 91 Room Air 05/01 1823 100.6 104 20 115/76 94 Room Air 05/01 1557 99.8 110 20 122/94 98 Room Air 05/01 1436 98.3 120 20 117/87 96 Room Air Intake & Output 05/02 1600 05/02 0800 05/02 0000 Intake Total 700 Output Total 250 Balance 450 Intake, IV 250 Intake, Oral 450 Output, Urine 250 Patient 280 lb Weight Physical Exam Other Physical Findings: General Appearance Alert, Oriented X3, Cooperative, No Acute Distress Skin edema and tenderness on right lower extremity extending up to the right knee. HEENT Atraumatic, PERRLA, EOMI Neck Supple, No JVD, No thryomegaly, +2 Carotid Pulse Lymphatic Cervical nl Cardiovascular Regular Rate, Normal S1, Normal S2, No Murmurs, Gallops Lungs Clear to Auscultation, Normal Air Movement Abdomen Normal Bowel Sounds, Soft, No Tenderness, No Hepatospenomegaly Neurological Normal Speech, Strength at 5/5 X4 Ext, Normal Tone, Sensation Intact, Cranial Nerves 3-12 NL Extremities Edema present b/l LE's; No Clubbing, venous stasis-related discoloration bilateral lower extremities extending up to knees, residual increased redness post aspect R calf Vascular Pulses Symmetrical Last 24 Hours of Lab Results: Laboratory Tests 05/02 05/01 0630 1540 Chemistry Sodium (137 - 145 mmol/L) 130 L 133 L Potassium (3.5 - 5.1 mmol/L) 3.7 4.4 Chloride (98 - 107 mmol/L) 90 L 89 L Carbon Dioxide (22 - 30 mmol/L) 31 H 30 Anion Gap (5 - 16) 9 13 BUN (9 - 20 mg/dL) 14 14 Creatinine (0.7 - 1.2 mg/dL) 0.6 L 0.7 Estimated GFR (>60 ml/min) > 60 > 60 BUN/Creatinine Ratio (7 - 25 %) 23.3 20.0 Glucose (65 - 99 mg/dL) 92 Calcium (8.4 - 10.2 mg/dL) 9.8 Total Bilirubin (0.2 - 1.3 mg/dL) 1.6 H 1.5 H Direct Bilirubin (< 0.4 mg/dL) 0.8 H AST (17 - 59 U/L) 47 59 ALT (21 - 72 U/L) 49 56 Alkaline Phosphatase (< 127 U/L) 38 55 Total Protein (6.3 - 8.2 g/dL) 6.7 8.0 Albumin (3.5 - 5.0 g/dL) 3.5 4.5 Globulin (1.9 - 4.2 gm/dL) 3.5 Albumin/Globulin Ratio (1.1 - 2.2 %) 1.3 Hematology CBC w Diff NO MAN DIFF REQ MAN DIFF ORDERED WBC (4.8 - 10.8 /CUMM) 9.4 11.2 H RBC (4.70 - 6.10 /CUMM) 4.24 L 4.46 L Hgb (14.0 - 18.0 G/DL) 13.5 L 14.0 Hct (42 - 52 %) 39.9 L 42.4 MCV (80.0 - 94.0 FL) 94.1 H 95.1 H MCH (27.0 - 31.0 PG) 32.0 H 31.5 H RDW (11.5 - 14.5 %) 14.3 14.6 H Plt Count (130 - 400 /CUMM) 104 L 128 L MPV (7.4 - 10.4 FL) 8.1 8.1 Gran % (42.2 - 75.2 %) 41.3 L Lymphocytes % (20.5 - 51.1 %) 35.5 Monocytes % (1.7 - 9.3 %) 22.6 H Eosinophils % (0 - 5 %) 0.3 Basophils % (0.0 - 2.0 %) 0.3 Absolute Granulocytes (1.4 - 6.5 /CUMM) 3.9 Segmented Neutrophils (42.2 - 75.2 %) 49 Band Neutrophils (0.0 - 5.0 %) 2 Absolute Lymphocytes (1.2 - 3.4 /CUMM) 3.3 Lymphocytes (20.5 - 51.1 %) 34 Monocytes (1.7 - 9.3 %) 15 H Absolute Monocytes (0.10 - 0.60 /CUMM) 2.1 H Absolute Eosinophils (0.0 - 0.7 /CUMM) 0 Absolute Basophils (0.0 - 0.2 /CUMM) 0 Platelet Estimate (ADEQUATE) DECREASED Anisocytosis 1+ Macrocytic Cells 1+ PUBS MCHC (33.0 - 37.0 G/DL) 34.0 33.1 Last 24 Hours of Tushar Results: Patient : JACK HALE Acct: [id number] DR: GLADIS DIXON MD Birthdate: [birth year] Age/Sex: 50/M Unit: [id number] Loc: 2N 205- 01 Status : ADM IN SPEC #: [id number] BERNADETTE: 05/01/16 STATUS: RES RECD: 05/01/[address]: VARUN GAXIOLA SOURCE: BLOOD ENTR: 05/01/16-[address]: GLADIS DIXON MD SPDESC: 2ND/VENOUS ORDERED: BLOOD CULTURE Procedure Result > BLOOD CULTURE REPORT Preliminary 05/02/16 No growth after 1 day incubation. Specimen is examined continuously for 5 days before final report unless culture becomes positive. Diagnostic Data Recent Imaging Findings: SERVICE DATE: 11/27/14- EXAM TYPE: CAT - CT LOWER EXT W IV CONTRAST EXAMINATION: CT LOWER EXTREMITY WITH CONTRAST, BILATERAL CLINICAL INFORMATION: Bilateral lower extremity swelling. Evaluate for cellulitis. COMPARISON: None. TECHNIQUE: Volumetric CT of the bilateral lower extremities was performed from the fetus to the pelvic inlet following the intravenous administration of 95 mL of [id number]. 2-D coronal and sagittal images of the bilateral lower extremities were obtained at the acquisition workstation and sent to PACS. DLP: 1225.28 mGy-cm. FINDINGS: Contrast-enhanced CT of the bilateral lower extremities demonstrates bilateral subcutaneous edema, more significant within the left lower extremity relative to the right lower extremity. Additionally, there is minimal skin thickening of the left lower extremity extending from the left knee to the left ankle and to lesser extent of the right lower extremity in a similar distribution. No rim-enhancing organizing fluid collections are identified within the subcutaneous tissues of the bilateral lower extremities. No intramuscular fluid collections are identified. No acute fracture or dislocation of the visualized bones is identified. There are mild degenerative changes of the bilateral hip joints, right greater than left, characterized by joint space narrowing. The bilateral hip, knee and ankle joints are otherwise intact, without evidence of fracture or dislocation. Visualized portions of the pelvis appear unremarkable. There is a mildly prominent left inguinal lymph node with central fatty lisa measuring approximately 1.9 cm in short axis dimension. The vessels are patent. Specifically, there is continuous contrast opacification of the bilateral lower extremity vessels to the level of the ankle. IMPRESSION: Subcutaneous edema of the bilateral lower extremities, left greater than right, with overlying skin thickening. This finding is nonspecific but could reflect cellulitis in the appropriate clinical setting. Correlate with physical examination. No rim-enhancing intramuscular or subcutaneous fluid collections identified. No acute osseous abnormality. Mild degenerative changes of the bilateral hip joints, right greater than left. DICTATED BY: URBAN PICKARD MD DATE/TIME DICTATED:11/27/142054 MANAGER ANIMAL:TELMA DATE/TIME TRANSCRIBED:11/27/142054 No recent imaging. Assessment/Plan Assessment/Plan Impression: 50-year-old man was known with atrial fibrillation, bipolar disorder, schizophrenia, hearing loss, hyponatremia (psychogenic polydipsia),chronic bilateral lower extremity edema due to diastolic HF and prior admission 2014 for possible cellulitis [facility] admitted on 05/01/16. R LE cellulitis superimposed on stasis dermatitis changes/ chronic lower extremities edema Fever Mild leukocytosis (now resolved) Abnl LFT's (? related to medication) Suggestion: 1. D/C iv vancomycin; oral doxycycline 100 mg po bid x 5 d. 2. Call if fever. 3. F/U LFT's; Liver/GB US to be considered. 4. Hep B and C screening serology. Consult Acknowledgment - Thank you for your consult request.
[2016-05-02 15:48] VITALS: BP 96/76
[2016-05-03 00:51] VITALS: BP 108/64
--- NOTE | 2016-05-03 05:52 | PN- Housestaff ---
Subjective Follow-up For: - RLE cellulitis Subjective: Feels improved. Vitals remained stable overnight. He remained afebrile. Has been ambulating well. Both erythema and tenderness reduced. Review of Systems Constitutional: Reports: see HPI. Objective Last 24 Hrs of Vital Signs/I&O Vital Signs Date Time Temp Pulse Resp B/P Pulse O2 O2 Flow FiO2 Ox Delivery Rate 05/03 0123 92 93 05/03 0051 98.6 91 20 108/64 96 Nasal Cannula 05/02 2218 98 97 05/02 1711 88 102/70 05/02 1548 98.7 87 20 96/76 97 Nasal 2.0L Cannula 05/02 0826 22 95 Nasal 2.0L Cannula 05/02 0825 98.1 94 20 130/72 91 Room Air 05/02 0800 95 Nasal 2.0L Cannula 05/02 0554 87 96 Intake & Output 05/03 0800 05/03 0000 05/02 1600 Intake Total 730 910 Output Total 400 300 Balance 330 610 Intake, IV 10 10 Intake, Oral 720 900 Number 0 Bowel Movements Output, Urine 400 300 Physical Exam General Appearance: No Acute Distress Other Physical Findings: General Exam: AAOx3, No acute distress, Skin: No rashes, no breakdown HEENT: PERRLA, EOMI Neck: Supple, No JVD No cervical lymphadenopathy CVS: Reg Rate, Normal S1,S2, No MGR Resp: Normal air entry, no ronchi/rales Abdomen: Soft, No tenderness, Normal Bowel Sounds Neuro: Normal Speech, Strength 5/5 b/l x 4 extremities, Sensation intact, CN III -XII NL, Reflexes 2+ Extremities: No cyanosis, pedal edema, mild erythema on the right lower extremity extending around the ankle. No tenderness. Current Medications: Current Medications Sig/Fatou Start time Last Medication Dose Route Stop Time Status Admin Acetaminophen 650 MG .STK-MED ONE 05/02 1417 DC PO 05/02 1418 Acetaminophen 650 MG Q6P PRN 05/01 2030 AC 05/03 PO 0300 Apixaban 5 MG 0800,1700 05/02 1700 AC 05/02 PO 1709 Apixaban 5 MG BID 05/01 2199 DC 05/02 PO 0828 Divalproex Sodium 125 MG AT BEDTIME 05/01 2199 AC 05/02 PO 2105 Divalproex Sodium 500 MG FOUR TIMES A DAY 05/01 2100 AC 05/02 PO 2104 Doxycycline Hyclate 100 MG BID 05/02 2199 AC 05/02 PO 2104 Furosemide 20 MG DAILY 05/02 1000 AC 05/02 PO 08 Metoprolol Tartrate 50 MG 0800,1700 05/02 1700 AC 05/02 PO 171 Metoprolol Tartrate 50 MG BID 05/01 2199 DC 05/02 PO 08 Patient Medication 1 ED .STK-MED ONE 05/02 1400 MA Teaching ED 05/02 1401 Trihexyphenidyl HCl 2 MG TID 05/01 2199 AC 05/02 PO 2104 Vancomycin HCl 1,000 MG Q24H 05/02 170 CAN Dextrose/Water 250 ML IV Last 24 Hrs of Lab/Tushar Results Last 24 Hrs of Labs/Mics: Laboratory Tests 05/02/16 0630: Anion Gap 9, Estimated GFR > 60, BUN/Creatinine Ratio 23.3, Total Bilirubin 1.6 H, Direct Bilirubin 0.8 H, AST 47, ALT 49, Alkaline Phosphatase 38, Total Protein 6.7, Albumin 3.5, CBC w Diff NO MAN DIFF REQ, RBC 4.24 L, MCV 94.1 H, MCH 32.0 H, RDW 14.3, MPV 8.1, Gran % 41.3 L, Lymphocytes % 35.5, Monocytes % 22.6 H, Eosinophils % 0.3, Basophils % 0.3, Absolute Granulocytes 3.9, Absolute Lymphocytes 3.3, Absolute Monocytes 2.1 H, Absolute Eosinophils 0, Absolute Basophils 0, PUBS MCHC 34.0, Hepatitis A IgM Ab Pending, Hep Bs Antigen Pending, Hep B Core IgM Ab Conf Pending, Hepatitis C Antibody Pending Assessment/Plan Assessment: He is a middle-aged man with history of bipolar disorder is being evaluated for pain and swelling of right lower extremity likely from cellulitis. Differential diagnosis: #1 cellulitis of right lower extremity#2 chronic venous stasis Below is the problem list and plan: #1 swelling and redness of right lower extremity-likely due to cellulitis. However, no band neutrophils were seen. Patient was started on vancomycin, which has been changed to doxycycline as per infectious disease senior safety management consultant. As per the patient, he is severely allergic to penicillin. Plan to discharge the patient this p.m. #2 mental health-continue home dose of Depakote. Continue to hold Haldol reassess in the a.m. #3 atrial fibrillation-on anticoagulation and rate controlling medication. Continue to monitor closely. #4 DVT prophylaxis- Eliquis. #5 diet-CHF diet. Problem List: 1. Cellulitis of right leg 2. Blister (nonthermal), left lower leg, initial encounter 3. Chronic pain Pain Ratin Pain Location: Right lower extremity Pain Goal: Pain 4 or less Pain Plan: Tylenol when necessary Tomorrow's Labs & Rationales: No labs necessary. The patient to be discharged.
[2016-05-03] MEDS ORDERED: DOXYCYCLINE HY100 M4 PO ×2 (07:35→11:53)
--- NOTE | 2016-05-03 07:37 | Patient Discharge Instructions ---
Discharge Instructions General Discharge Information You were seen/treated for: #1 lower extremity cellulitis Watch for these problems: #1 increasing redness, swelling #2 severe pain in right lower extremity Special Instructions: #1 please follow up with her primary care provider within 1-2 weeks of discharge #2 please follow-up with your wound care clinic within 1-2 weeks of discharge #3 please follow-up with your vascular surgeon within 1-2 weeks of discharge Acute Coronary Syndrome Inclusion Criteria At DC or during hospital stay patient has or had the following: ACS DIAGNOSIS No Discharge Core Measures Meds if any: Prescribed or Continued at Discharge Meds if any: NOT Prescribed or Continued at Discharge Congestive Heart Failure Inclusion Criteria At DC or during hospital stay patient has or had the following: CHF DIAGNOSIS No Discharge Core Measures Meds if any: Prescribed or Continued at Discharge Meds if any: NOT Prescribed or Continued at Discharge Cerebrovascular accident Inclusion Criteria At DC or during hospital stay patient has or had the following: CVA/TIA Diagnosis No Discharge Core Measures Meds if any: Prescribed or Continued at Discharge Meds if any: NOT Prescribed or Continued at Discharge Venous thromboembolism Inclusion Criteria VTE Diagnosis No VTE Type NONE VTE Confirmed by (Test) NONE Discharge Core Measures - Per Current guidelines, there needs to be overlap - treatment for the first 5 days of Warfarin therapy. - If discharged on Warfarin prior to 5 days of - overlap therapy, the patient will need to be - assessed for post discharge needs including - *Post discharge parental anticoagulation - *Warfarin and/or parental anticoagulation education - *Follow up date to check INR post discharge At least 5 days overlap therapy as Inpatient No Meds if any: Prescribed or Continued at Discharge Note: Overlap Therapy is Warfarin and Anticoagulant Meds if any: NOT Prescribed or Continued at Discharge
[2016-05-03 07:57] VITALS: BP 110/74
--- NOTE | 2016-05-03 12:13 | PN- Att Addend ---
Attending Addendum Attending Brief Note Patient is better the swelling is down and the legs still a little red. His febrile, his vital signs are stable. He will be switched to by mouth antibiotics, and will be discharged to follow with myself vascular surgeon the chief technologist and the wound Center dated see the CMR and discharge summary. Laboratory Tests 05/03/16 0623: Anion Gap 7, Estimated GFR > 60, BUN/Creatinine Ratio 21.7 Vital Signs Date Time Temp Pulse Resp B/P Pulse O2 O2 Flow FiO2 Ox Delivery Rate 05/03 1041 20 94 Room Air 05/03 1040 20 95 Room Air 05/03 0757 97.4 87 20 110/74 97 Nasal 2.0L Cannula 05/03 0735 95 Nasal 2.0L Cannula Is chronically hyponatremic.
--- NOTE | 2016-05-03 12:19 | Discharge Summary ---
Visit Information Visit Dates Admission Date: 05/01/16 Discharge Date: 05/03/16 Hospital Course Course Attending Physician: GLADIS VARGAS MD Primary Care Physician: GLADIS VARGAS MD Consulting Request: Consulting Specialty: Infectious Disease Consulting Physician: Álvaro Philippe MD Reason for Consult: cellulitis of the leg Hospital Course: 50-year-old white male admitted with a cellulitis of his leg. After IV antibiotics and local care leg slowly improved his white count came down. He remained afebrile. Was seen by infectious diseases regarding antibiotic therapy. 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 and myself Complications: None Allergies: Coded Allergies: amoxicillin (From AUGMENTIN) (Severe, ANGIOEDEMA, RASH 05/16/15) clavulanic acid (From AUGMENTIN) (Severe, ANGIOEDEMA, RASH 05/16/15) Penicillins (SWELLING 05/16/15) Pertinent Lab Results: Laboratory Tests 05/03/16 0623: Anion Gap 7, Estimated GFR > 60, BUN/Creatinine Ratio 21.7 05/02/16 0630: Anion Gap 9, Estimated GFR > 60, BUN/Creatinine Ratio 23.3, Total Bilirubin 1.6 H, Direct Bilirubin 0.8 H, AST 47, ALT 49, Alkaline Phosphatase 38, Total Protein 6.7, Albumin 3.5, CBC w Diff NO MAN DIFF REQ, RBC 4.24 L, MCV 94.1 H, MCH 32.0 H, RDW 14.3, MPV 8.1, Gran % 41.3 L, Lymphocytes % 35.5, Monocytes % 22.6 H, Eosinophils % 0.3, Basophils % 0.3, Absolute Granulocytes 3.9, Absolute Lymphocytes 3.3, Absolute Monocytes 2.1 H, Absolute Eosinophils 0, Absolute Basophils 0, PUBS MCHC 34.0, Hepatitis A IgM Ab NONREACTIVE, Hep Bs Antigen NONREACTIVE, Hep B Core IgM Ab Conf NONREACTIVE, Hepatitis C Antibody REACTIVE H 05/01/16 1540: Anion Gap 13, Estimated GFR > 60, BUN/Creatinine Ratio 20.0, Glucose 92, Calcium 9.8, Total Bilirubin 1.5 H, AST 59, ALT 56, Alkaline Phosphatase 55, Total Protein 8.0, Albumin 4.5, Globulin 3.5, Albumin/Globulin Ratio 1.3, CBC w Diff MAN DIFF ORDERED, RBC 4.46 L, MCV 95.1 H, MCH 31.5 H, RDW 14.6 H, MPV 8.1, Segmented Neutrophils 49, Band Neutrophils 2, Lymphocytes 34, Monocytes 15 H, Platelet Estimate DECREASED, Anisocytosis 1+, Macrocytic Cells 1+, PUBS MCHC 33.1 Microbiology 05/01 1550 BLOOD: Blood Culture - RES 05/01 1546 BLOOD: Blood Culture - RES Microbiology 05/01 1550 BLOOD: Blood Culture - RES 05/01 1546 BLOOD: Blood Culture - RES Disposition Summary Disposition Principal Diagnosis: Cellulitis of the leg Additional Diagnosis: Hyponatremia Schizoaffective disorder Atrial fibrillation Discharge Disposition: home health services Discharge Instructions General Discharge Information Code Status: Full Code Patient's Diet: Healthy heart Patient's Activity: As tolerated and elevate his legs while sitting, follow instructions from the wound Center Follow-Up Instructions/Appts: Follow-up with Dr. Vargas the wound Center vascular and also Dr. Martinez Medications at Discharge Discharge Medications: Continue taking these medications: Haloperidol Decanoate (Haloperidol Decanoate) 100 MG/1 ML VIAL 0.9 Milliliters INTRAMUSC EVERY 2 WEEKS Comments: PER PT Trihexyphenidyl HCl (Trihexyphenidyl HCl) 2 MG TABLET 1 Tablet ORAL THREE TIMES DAILY Instructions: 2 MG AT 8 AM, 5 PM AND 4 MG AT BED TIME Divalproex Sodium (Depakote ER) 500 MG TAB.ER.24H 1 Tablet ORAL 4 TIMES A DAY Instructions: 500 MG AM, 500 MG NOON, 500 MG JEANNE, 625 MG AT BED TIME Comments: 8AM, 1PM, 5PM, 8PM PER PT Apixaban (Eliquis) 5 MG TABLET 1 Tablet ORAL TWICE DAILY Comments: PER PT 8AM AND 5PM Metoprolol Tartrate (Metoprolol Tartrate) 50 MG TABLET 1 Tablet ORAL TWICE DAILY Qty = 60 Comments: PER PT Furosemide (Furosemide) 20 MG TABLET 1 Tablet ORAL DAILY Qty = 30 Comments: PER PT 8AM Albuterol Sulfate (Proventil Hfa) 6.7 GM HFA.AER.AD 2 Puff Inhale through mouth Every 4 hours as needed for BREATHING PROBLEMS Divalproex Sodium (Depakote) 125 MG TABLET.DR 1 Tablet ORAL AT BED TIME Qty = 30 Start taking the following new medications: Doxycycline Hyclate (Doxycycline Hyclate) 100 MG TABLET 1 Tablet ORAL TWICE DAILY Qty = 8 No Refills Instructions: PLEASE TAKE MEDICATIONS PRESCRIBED Copies To: ZACKARY HAQ,ÁLVARO Kolb; GLADIS VARGAS MD Attending MD Review Statement Documenting Attending: GLADIS VARGAS MD
[2016-06-26] MEDS ORDERED: KEFLEX500 M1 PO (11:52)
== END 2016-05-03 13:30 | DRG 603 ==
LOC: ENRESERVDT → ENRESERVTM → ERH 14:29 → 2NB 18:02 → ENPENDDIS 18:02 → ERHI 18:02 → 2NB 19:34
PROVIDERS: Internal Medicine; Physician Assistant; ADMIT Internal Medicine
DX: L03.115 Cellulitis of right lower limb (principal); I50.32 Chronic diastolic (congestive) heart failure; I48.91 Unspecified atrial fibrillation; Z79.01 Long term (current) use of anticoagulants; F25.9 Schizoaffective disorder, unspecified
CPT/HCPCS: 2NBP; 36415; 82436; 87040; 93005; 93010; 96365; G0463; J3370; J7060

== ENCOUNTER 2016-06-25 20:15 | Emergency (ER) | payer OTHER, MEDICARE ==
[~2016-06-25] VITALS: Ht 180.3 cm; Wt 129.3 kg
[~2016-06-25 20:15] MED LIST changes: +DEPAKOTE125 M1 PO; +DOXYCYCLINE HY100 M4 PO
[2016-06-25 21:03] LABS: ABSOLUTE BASOPHIL COUNT 0 /CUMM (0.0-0.2); ABSOLUTE EOSINOPHIL COUNT 0.1 /CUMM (0.0-0.7); ABSOLUTE GRANULOCYTE CT 3.3 /CUMM (1.4-6.5); ABSOLUTE MONOCYTE COUNT 1.4 /CUMM (0.10-0.60); BASOPHIL % 0.3 % (0.0-2.0); EOSINOPHIL % 0.7 % (0-5); GRANULOCYTE % 37.7 % (42.2-75.2); HEMATOCRIT 41.5 % (42-52); MEAN CORPUSCULAR HGB 31.7 PG (27.0-31.0); MEAN CORPUSCULAR HGB CONC 33.4 G/DL (33.0-37.0); MEAN CORPUSCULAR VOLUME 94.8 FL (80.0-94.0); MEAN PLATELET VOLUME 8.8 FL (7.4-10.4); PLATELET COUNT 105 /CUMM (130-400); RBC DISTRIBUTION WIDTH 14.6 % (11.5-14.5); RED BLOOD CELL CT 4.37 /CUMM (4.70-6.10); WHITE BLOOD CELL COUNT 8.7 /CUMM (4.8-10.8)
--- NOTE | 2016-06-25 22:02 | ED SKIN/ALLERGY COMPLAINT ---
History of Present Illness General Chief Complaint: General Adult Stated Complaint: ?CELLULITIS IN LEGS,L THIGH,KNEE,ANKLE PAIN Source: patient, family Exam Limitations: no limitations Vital Signs & Intake/Output Vital Signs & Intake/Output Vital Signs Date Time Temp Pulse Resp B/P Pulse O2 O2 Flow FiO2 Ox Delivery Rate 06/251 99 Nasal 2.0L Cannula 06/25 2217 98.2 99 22 116/79 97 Nasal 2.0L Cannula Allergies Coded Allergies: amoxicillin (From AUGMENTIN) (Severe, ANGIOEDEMA, RASH 05/16/15) clavulanic acid (From AUGMENTIN) (Severe, ANGIOEDEMA, RASH 05/16/15) Penicillins (SWELLING 05/16/15) Triage Note: PT TO ED FOR L LEG SWELLING, KNEE PAIN AND GROIN PAIN FOR 1.[address] VARGAS WHO PRESCRIBED A "MUSCLE RELAXER BUT THEY CANT DELIVER IT UNTIL TOMORROW SO IM HERE NOW", DENIES FEVER, WORSENING WEAKNESS, LEGS APPEARS DARK DUE TO CHRONIC VENOUS PROBLEMS, NO WOUNDS OR DRAINAGE. L LEG APPEARS SLIGHTLY MORE SWOLLEN THAN R. Triage Nurses Notes Reviewed? yes Onset: Gradual Duration: constant Timing: recent history Severity: moderate Severity Numbers: 5 HPI: Patient is a 50-year-old male with past medical history of cellulitis, atrial fibrillation ON ELIQUIS, schizoaffective disorder, lower extremity edema and venous stasis who presents to emergency room stating that his legs are more edematous than usual left more than right and complains of worsening discoloration left more than right He states that he was evaluated by his primary care Dr. Vargas today was given cyclobenzaprine for his leg discomfort Patient denies any fever chills chest pain shortness of breath cough hemoptysis (VARUN GAXIOLA) Reconcile Medications Albuterol Sulfate (Proventil Hfa) 6.7 GM HFA.AER.AD 2 PUF INH Q4 PRN BREATHING PROBLEMS (Reported) Apixaban (Eliquis) 5 MG TABLET 1 TAB PO BID BLOOD THINNER (Reported) Divalproex Sodium (Depakote ER) 500 MG TAB.ER.24H 1 TAB PO 4 TIMES/DAY MENTAL HEALTH (Reported) 500 MG AM, 500 MG NOON, 500 MG JEANNE, 625 MG AT BED TIME Divalproex Sodium (Depakote) 125 MG TABLET.DR 1 TAB PO AT BED TIME MENTAL HEALTH (Reported) Furosemide (Lasix) 20 MG TABLET 1 TAB PO DAILY LEG SWELLING Haloperidol Decanoate 100 MG/1 ML VIAL 0.9 ML IM Q2W MENTAL HEALTH (Reported) Metoprolol Tartrate 50 MG TABLET 1 TAB PO BID HEART/BP (Reported) Trihexyphenidyl HCl 2 MG TABLET 1 TAB PO TID ANTISPASMODIC (Reported) Trihexyphenidyl HCl 2 MG TABLET 2 TAB PO QPM ANTISPASMODIC (Reported) (DAVID HAQ,LILA) Past History Travel History Traveled to [place] past 21 day No Medical History Any Pertinent Medical History? see below for history Neurological: NONE EENT: HEARING LOSS Cardiovascular: AFIB Respiratory: asthma Gastrointestinal: HEARTBURN Hepatic: NONE Renal: NONE Musculoskeletal: CHIP LEFT WRIST. 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 No (VARUN GAXIOLA) Review of Systems Review of Systems Constitutional: Reports: no symptoms. EENTM: Reports: no symptoms. Respiratory: Reports: no symptoms. Cardiovascular: Reports: see HPI, peripheral edema. Denies: chest pain. GI: Reports: no symptoms. Genitourinary: Reports: no symptoms. Musculoskeletal: Reports: see HPI, muscle pain. Skin: Reports: see HPI, change in skin color. Neurological/Psychological: Reports: no symptoms. Hematologic/Endocrine: Reports: no symptoms. Immunologic/Allergic: Reports: no symptoms. All Other Systems: Reviewed and Negative (VARUN GAXIOLA) Physical Exam Physical Exam General Appearance: no apparent distress, alert, comfortable Skin: intact Comments: Well-developed well-nourished person in no acute distress HEENT: Normal EENT exam, Neck: Supple, no lymphadenopathy, normal range of motion without pain or tenderness Back: Nontender, no CVA tenderness. Cardiovascular: Regular rate and rhythms no murmurs rubs or gallops, normal JVP Respiratory: Chest nontender. No respiratory distress.breath sounds clear to auscultation bilaterally Abdomen: Soft, nontender nondistended, no appreciable organomegaly. Normal bowel sounds. No ascites Extremity: normal and equal pulses. Neuro: Alert oriented x3, motor sensory normal, Skin: No appreciable rash on exposed skin, skin is warm and dry. Psych: Mood and affect is normal, memory and judgment is normal. Diagram Body: 1) Left lower extremity brawny brown discoloration and +2 pitting edema No erythema no warmth pedal pulse intact sensation intact No fluctuance 2) Left lower extremity light brawny brown discoloration and +2 pitting edema No erythema no warmth pedal pulse intact sensation intact No fluctuance (SONIDO PRUETT,VARUN) Progress Differential Diagnosis: abscess/cellulitis, allergic reaction, anaphylaxis, angioedema, lyme disease, meningitis/sepsis, urticaria, dvt, pe, CELLULITIS Plan of Care: Orders Procedure Date/time Status COMPREHENSIVE METABOLIC PANEL 06/26 2023 Complete CBC WITHOUT DIFFERENTIAL 06/26 2023 Complete Laboratory Tests 06/25/162040: Anion Gap 11, Estimated GFR > 60, BUN/Creatinine Ratio 27.1 H, Glucose 121 H, Calcium 9.8, Total Bilirubin 1.2, AST 72 H, ALT 54, Alkaline Phosphatase 70, Total Protein 8.0, Albumin 4.4, Globulin 3.6, Albumin/Globulin Ratio 1.2, CBC w Diff NO MAN DIFF REQ, RBC 4.37 L, MCV 94.8 H, MCH 31.7 H, RDW 14.6 H, MPV 8.8, Gran % 37.7 L, Lymphocytes % 45.4, Monocytes % 15.9 H, Eosinophils % 0.7, Basophils % 0.3, Absolute Granulocytes 3.3, Absolute Lymphocytes 4.0 H, Absolute Monocytes 1.4 H, Absolute Eosinophils 0.1, Absolute Basophils 0, PUBS MCHC 33.4 Due to history of present illness and exam findings patient has concerns of worsening lower extremity edema and venous stasis however on exam there is no concern of infectious cellulitic concern. Patient had clear lungs auscultation Denies any cardiovascular complaints Ultrasound is unavailable currently for evaluation of DVT however patient currently is therapeutic on ELIQUIS Patient was strongly advised to follow-up tomorrow first thing to obtain ultrasound as he was given a prescription for ultrasounds to his bilateral legs This was discussed with with a family member Although patient has a recent history of cellulitis and my concern was low of cellulitis he was prophylactically treated with Keflex. I also applied Isai wrap to his legs for swelling pre-and post-neurovascular was intact patient was strongly advised to elevate the feet for swelling He was strongly advised to follow up with primary care doctor in 2 days if no better. Patient was afebrile Discussed patient with (VARUN GAXIOLA) Departure Departure Disposition: HOME OR SELF CARE Condition: Stable Clinical Impression Primary Impression: Leg swelling Secondary Impressions: Venous stasis Referrals: GLADIS VARGAS MD (PCP/Family) Additional Instructions: As discussed BEGIN TO elevate YOU feet for swelling. Begin the prescription of Lasix combined with your previous Lasix prescription FOR THE Following 4 days. Begin to use Isai wrap for swelling Begin YOUR previously prescribed muscle relaxer for symptoms. Tomorrow please call the phone number at the Department of radiology central scheduling #[phone] to make an appointment to receive bilateral leg ultrasounds. If positive YOU WILL be sent to the emergency room. Follow-up with your primary care doctor in 2 days if no better Begin the prescription of Keflex for infection prevention Departure Forms: Customer Survey General Discharge Information (VARUN GAXIOLA) Departure Prescriptions: Current Visit Scripts Furosemide (Lasix) 1 TAB PO DAILY #4 TAB PA/CATTLE FARMER Co-Sign Statement Statement: ED Attending supervision documentation- [] I saw and evaluated the patient. I have also reviewed all the pertinent lab results and diagnostic results. I agree with the findings and the plan of care as documented in the PA's/CATTLE FARMER's documentation. [X] I have reviewed the ED Record and agree with the PA's/CATTLE FARMER's documentation. [] Additions or exceptions (if any) to the PAs/CATTLE FARMER's note and plan are summarized below: [] (DAVID HAQ,LILA)
[2016-06-25 22:18] VITALS: BP 116/79
[2016-06-25] MEDS ORDERED: LASIX20 M1 PO (22:24)
[2016-06-25] MEDS ORDERED: KEFLEX500 M1 PO (22:24)
[2016-06-26] MEDS ORDERED: KEFLEX500 M1 PO (11:52)
== END 2016-06-25 23:06 ==
LOC: ERH 20:15
PROVIDERS: Emergency Medicine
DX: M79.89 Other specified soft tissue disorders (principal); I87.8 Other specified disorders of veins

== ENCOUNTER 2016-07-01 08:25 | Inpatient (IN) | payer OTHER, MEDICARE ==
[~2016-07-01] VITALS: Ht 182.9 cm; Wt 127.0 kg
[~2016-07-01 08:25] MED LIST changes: +KEFLEX500 M1 PO; +LASIX20 M1 PO
--- NOTE | 2016-07-01 08:30 | NUR ---
PER PT HERE SATURDAY, UNABLE TO GET US OF BLE, HAVE OUTPT REQ AND STILL CANT GET IT DONE, UNABLE TO SLEEP D/T PAIN. PT REPORTS NEED IT TODAY NOTE WRITTEN BY ARCADIO Johnson RN.
--- NOTE | 2016-07-01 08:36 | NUR ---
PT TO ROOM 8 VIA W/C. ASSISTED TO STRETCHER. AWAITING EVAL.
--- NOTE | 2016-07-01 08:38 | NUR ---
dr adan in for eval.
--- NOTE | 2016-07-01 08:45 | ED UPPER/LOWER EXTREMITY COMPL ---
See Addendum History of Present Illness General Chief Complaint: Lower Extremity Problems Stated Complaint: LEFT LEG PAIN SEEN FOR SAME LAST WEEK Source: patient, family, old records Exam Limitations: no limitations Vital Signs & Intake/Output Vital Signs & Intake/Output Vital Signs Date Time Temp Pulse Resp B/P Pulse O2 O2 Flow FiO2 Ox Delivery Rate 07/01 0832 96.0 91 20 109/78 96 Room Air Allergies Coded Allergies: amoxicillin (From AUGMENTIN) (Severe, ANGIOEDEMA, RASH 05/16/15) clavulanic acid (From AUGMENTIN) (Severe, ANGIOEDEMA, RASH 05/16/15) Penicillins (SWELLING 05/16/15) Reconcile Medications Albuterol Sulfate (Proventil Hfa) 6.7 GM HFA.AER.AD 2 PUF INH Q4 PRN BREATHING PROBLEMS (Reported) Apixaban (Eliquis) 5 MG TABLET 1 TAB PO BID BLOOD THINNER (Reported) Cephalexin (Keflex) 500 MG CAPSULE 1 CAP PO Q6 infection Divalproex Sodium (Depakote ER) 500 MG TAB.ER.24H 1 TAB PO 4 TIMES/DAY MENTAL HEALTH (Reported) 500 MG AM, 500 MG NOON, 500 MG JEANNE, 625 MG AT BED TIME Divalproex Sodium (Depakote) 125 MG TABLET.DR 1 TAB PO AT BED TIME MENTAL HEALTH (Reported) Doxycycline Hyclate 100 MG TABLET 1 TAB PO BID Cellulitis. PLEASE TAKE MEDICATIONS PRESCRIBED Furosemide 20 MG TABLET 1 TAB PO DAILY DIURETIC (Reported) Furosemide (Lasix) 20 MG TABLET 1 TAB PO DAILY LEG SWELLING Haloperidol Decanoate 100 MG/1 ML VIAL 0.9 ML IM Q2W MENTAL HEALTH (Reported) Metoprolol Tartrate 50 MG TABLET 1 TAB PO BID HEART/BP (Reported) Trihexyphenidyl HCl 2 MG TABLET 1 TAB PO TID ANTISPASMODIC (Reported) 2 MG AT 8 AM, 5 PM AND 4 MG AT BED TIME Triage Note: PER PT HERE SATURDAY, UNABLE TO GET US OF BLE, HAVE OUTPT REQ AND STILL CANT GET IT DONE, UNABLE TO SLEEP D/T PAIN. PT REPORTS NEED IT TODAY Triage Nurses Notes Reviewed? yes HPI: Patient presents for increasing pain and swelling and redness to both lower extremities with the left lower extremity being worse than the right lower extremity. Patient was seen here on June 25 for the same. Patient was started on antibiotics and his Lasix was increased. Patient was due to have an ultrasound however because of transportation issues he has been unable to have the ultrasound yet. Patient has been having fevers and chills at home. His legs are throbbing in nature and he rates the pain as 7 out of 10. There is no radiation. The pain is in the areas where it is red and warm to the touch. There is no pain outside of the reddened areas. Patient is unable to ambulate at home secondary to pain and swelling. Past History Travel History Traveled to [place] past 21 day No Medical History Any Pertinent Medical History? see below for history Neurological: NONE EENT: HEARING LOSS Cardiovascular: AFIB Respiratory: asthma, COPD Gastrointestinal: HEARTBURN Hepatic: NONE Renal: NONE Musculoskeletal: CHIP LEFT WRIST. 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 No Review of Systems Review of Systems Constitutional: Reports: see HPI, chills, fever. EENTM: Reports: no symptoms. Respiratory: Reports: no symptoms. Cardiovascular: Reports: no symptoms. Gastrointestinal/Abdominal: Reports: no symptoms. Genitourinary: Reports: no symptoms. Musculoskeletal: Reports: see HPI. Skin: Reports: see HPI. Neurological/Psychological: Reports: no symptoms. Hematologic/Endocrine: Reports: no symptoms. Immunological: Reports: no symptoms. All Other Systems: Reviewed and Negative Physical Exam Physical Exam General Appearance: well developed/nourished, alert, awake, anxious, moderate distress Head: atraumatic Eyes: Bilateral: PERRL, EOMI. Ears, Nose, Throat: normal pharynx, normal ENT inspection, hearing grossly normal Neck: normal inspection, supple Cardiovascular/Respiratory: normal breath sounds, normal peripheral pulses, no respiratory distress, irregularly irregular Peripheral Pulses: 2+ tibialis posterior (R), 2+ tibialis posterior (L), 1+ dorsalis pedis (R), 1+ dorsalis pedis (L) Gastrointestinal: SOFT, +BOWEL SOUNDS Back: normal inspection, normal range of motion Leg Left: ERYTHEMA, TENDERNESS, WARMTH Leg Right: ERYTHEMA, TENDERNESS, WARMTH Neurologic/Tendon: normal sensation, normal motor functions, normal tendon functions Skin: ERYTHMEA Lymphatic: inguinal node tender (R), inguinal node tender (L) Progress Differential Diagnosis: cellulitis, DVT Plan of Care: Orders Procedure Date/time Status Admit to inpatient 07/01 1004 Active Add-on Test (ER Only) 07/01 1002 Active US-EXT BILAT VENOUS DOPPLER 07/01 08 Active BLOOD CULTURE 07/01 08 Active URINALYSIS 07/01 08 Complete COMPREHENSIVE METABOLIC PANEL 07/01 08 Complete CBC WITHOUT DIFFERENTIAL 07/02 843 Complete Laboratory Tests 07/01/16 0925: Urine Color YEL, Urine Clarity CLEAR, Urine pH 6.0, Ur Specific [place] 1.010, Urine Protein NEG, Urine Ketones NEG, Urine Nitrite NEG, Urine Bilirubin NEG, Urine Urobilinogen 1.0, Ur Leukocyte Esterase NEG, Ur Microscopic EXAM NOT REQUIRED, Urine Hemoglobin NEG, Urine Glucose NEG 07/01/16 0908: Anion Gap 9, Estimated GFR > 60, BUN/Creatinine Ratio 25.0, Glucose 123 H, Calcium 9.5, Total Bilirubin 1.4 H, AST 47, ALT 50, Alkaline Phosphatase 60, Total Protein 7.2, Albumin 4.0, Globulin 3.2, Albumin/Globulin Ratio 1.3, CBC w Diff NO MAN DIFF REQ, RBC 4.04 L, MCV 94.5 H, MCH 32.0 H, RDW 14.9 H, MPV 7.6, Gran % 47.8, Lymphocytes % 34.1, Monocytes % 16.3 H, Eosinophils % 1.5, Basophils % 0.3, Absolute Granulocytes 3.1, Absolute Lymphocytes 2.2, Absolute Monocytes 1.0 H, Absolute Eosinophils 0.1, Absolute Basophils 0, PUBS MCHC 33.8 Microbiology 07/01 0908 BLOOD: Blood Culture - RECD 07/02 843 BLOOD: Blood Culture - ORD Diagnostic Imaging: Viewed by Me: Ultrasound. Discussed w/RAD: Ultrasound. Comments: The patient has worsening cellulitis despite being on oral antibiotics for the past 6 days. Departure Departure Disposition: STILL A PATIENT Condition: Stable Clinical Impression Primary Impression: Cellulitis Referrals: GLADIS DIXON MD (PCP/Family) Departure Forms: Customer Survey General Discharge Information Admission Note Spoke With: KATRIN HAQ,GABE Alonzo Documentation of Exam: Documentation of any treatments & extenuating circumstances including Concerns Regarding Discharge (functional status, medication knowledge or non-compliance, living conditions, etc.) that warrant an admission rather than observation: [ Patient is having worsening lateral lower extremity edema as well as worsening erythema to both lower extremities despite being on an increased dose of Lasix and antibiotics at home for the past 6 days. Patient is also been running fevers and having chills at home. Patient has been feeling nauseous secondary to the antibiotics but he has been taking them as prescribed. Patient will not be admitted for IV antibiotics since he has failed outpatient antibiotics.]
--- NOTE | 2016-07-01 09:11 | NUR ---
BLD DRAW LAV, SST, 1ST SET BLD CULTURES
[2016-07-01 09:16] LABS: ABSOLUTE BASOPHIL COUNT 0 /CUMM (0.0-0.2); ABSOLUTE EOSINOPHIL COUNT 0.1 /CUMM (0.0-0.7); ABSOLUTE GRANULOCYTE CT 3.1 /CUMM (1.4-6.5); ABSOLUTE LYMPH COUNT 2.2 /CUMM (1.2-3.4); BASOPHIL % 0.3 % (0.0-2.0); EOSINOPHIL % 1.5 % (0-5); GRANULOCYTE % 47.8 % (42.2-75.2); HEMATOCRIT 38.2 % (42-52); MEAN CORPUSCULAR HGB CONC 33.8 G/DL (33.0-37.0); MEAN CORPUSCULAR VOLUME 94.5 FL (80.0-94.0); MEAN PLATELET VOLUME 7.6 FL (7.4-10.4); PLATELET COUNT 98 /CUMM (130-400); RBC DISTRIBUTION WIDTH 14.9 % (11.5-14.5); RED BLOOD CELL CT 4.04 /CUMM (4.70-6.10); WHITE BLOOD CELL COUNT 6.4 /CUMM (4.8-10.8)
--- NOTE | 2016-07-01 09:28 | NUR ---
URINE SPECIMEN SENT ALL THREE TUBES
[2016-07-01] MEDS ORDERED: TRIHEXYPHENIDYL2 M2 PO (10:08)
--- NOTE | 2016-07-01 10:11 | History & Physical ---
DANYELLE ROSARIO 07/01/16 1009: General Information and HPI MD Statement: I have seen and personally examined JACK HALE and documented this H&P. The patient is a 50 year old M who presented with a patient stated chief complaint of [cellulitis ]. Source of Information: patient, old records, EMS Exam Limitations: no limitations History of Present Illness: Mr Efrain is a 50-year-old man was brought in to ED for worsening redness and swelling of his right lower extremity. He has a past history of atrial fibrillation (on NOAC), bipolar disorder, schizophrenia, hearing loss, chronic bilateral lower extremity edema and frequent admission and treatment for lower extremity cellulitis(latest one was in April 2016 for which patient was treated doxycycline for cellulitis). Patient presents for increasing pain and swelling and redness to both lower extremities with the left lower extremity being worse than the right lower extremity. Patient was seen by here on June 25 for the same reason and was ordered out patient U/S to R/O DVT which he could not obtain. Patient was started on cephalexin 500 mg by mouth twice a day since last Saturday and his Lasix dose was increased by his primary care physician without minimal improvement/worsening of his symptomatology mainly swelling and pain of his lower extremities (particularly right lower extremity). He was also reported to be febrile and having shaking chills at home he denies any chest pain, palpitation, altered mental status, GI/ symptoms. He has bilateral lower extremity swelling with worsening and predominantly acute redness and swelling on her right lower extremity with development of poorly demarcated area on his right foot up to mid thigh, examiner rating clerk touch, tender, without any entrance wound, no obvious pus, denies any recent trauma. Some poorly demarcated area of limited redness in the medial aspect of the contralateral foot without warms and without tenderness. Allergies/Medications Allergies: Coded Allergies: amoxicillin (From AUGMENTIN) (Severe, ANGIOEDEMA, RASH 05/16/15) clavulanic acid (From AUGMENTIN) (Severe, ANGIOEDEMA, RASH 05/16/15) Penicillins (SWELLING 05/16/15) Home Med list Albuterol Sulfate (Proventil Hfa) 6.7 GM HFA.AER.AD 2 PUF INH Q4 PRN BREATHING PROBLEMS (Reported) Apixaban (Eliquis) 5 MG TABLET 1 TAB PO BID BLOOD THINNER (Reported) Divalproex Sodium (Depakote ER) 500 MG TAB.ER.24H 1 TAB PO 4 TIMES/DAY MENTAL HEALTH (Reported) 500 MG AM, 500 MG NOON, 500 MG JEANNE, 625 MG AT BED TIME Divalproex Sodium (Depakote) 125 MG TABLET.DR 1 TAB PO AT BED TIME MENTAL HEALTH (Reported) Furosemide (Lasix) 20 MG TABLET 1 TAB PO DAILY LEG SWELLING Haloperidol Decanoate 100 MG/1 ML VIAL 0.9 ML IM Q2W MENTAL HEALTH (Reported) Metoprolol Tartrate 50 MG TABLET 1 TAB PO BID HEART/BP (Reported) Trihexyphenidyl HCl 2 MG TABLET 1 TAB PO TID ANTISPASMODIC (Reported) Trihexyphenidyl HCl 2 MG TABLET 2 TAB PO QPM ANTISPASMODIC (Reported) Compliance With Home Meds: GOOD Past History Travel History Traveled to [place] past 21 day No Medical History Neurological: NONE EENT: HEARING LOSS Cardiovascular: AFIB Respiratory: asthma, COPD Gastrointestinal: HEARTBURN Hepatic: NONE Renal: NONE Musculoskeletal: CHIP LEFT WRIST. Psychiatric: schizo affective disorder, rule out bipolar features Endocrine: NONE Blood Disorders: anemia Cancer(s): NONE ONLINE EDITOR/Reproductive: NONE History of MRSA: Yes History of VRE: No History of CDIFF: No Tetanus Vaccine: 05/08/12 Surgical History Surgical History: non-contributory Past Family/Social History Family History Relations & Conditions if any MOTHER FH: diabetes mellitus Psychosocial History Services at Home: Nursing ETOH Use: denies use Illicit Drug Use: denies illicit drug use Functional Ability ADLs Needs Assist: dressing, eating, toileting, bathing. IADLs Needs Assist: shopping, housework, finances, food prep, telephone, transportation, medication admin. Review of Systems Review of Systems Constitutional: Reports: see HPI, fever. EENTM: Reports: no symptoms. Cardiovascular: Reports: no symptoms. Respiratory: Reports: no symptoms. GI: Reports: no symptoms. Musculoskeletal: Reports: no symptoms. Skin: Reports: see HPI, change in skin color, erythema, lesions. Neurological/Psychological: Reports: see HPI. All Other Systems: Reviewed and Negative Exam & Diagnostic Data Last 24 Hrs of Vital Signs/I&O Vital Signs Date Time Temp Pulse Resp B/P Pulse O2 O2 Flow FiO2 Ox Delivery Rate 07/01 1055 96.1 100 18 118/78 95 Room Air 07/01 0832 96.0 91 20 109/78 96 Room Air Intake & Output 07/01 1600 07/01 0800 07/01 0000 Intake Total 100 Output Total Balance 100 Intake, IV 100 Patient 285 lb Weight Physical Exam General Appearance Alert, Oriented X3, Cooperative, No Acute Distress Skin No Breakdown, poorly demarcated area of skin redness and tenderness, warmth on the RLE LLE has limited non tender redness on the medial malleous HEENT Atraumatic, PERRLA, EOMI, Mucous Membr. moist/pink Neck No JVD, No thryomegaly Cardiovascular Normal S1, Normal S2, IRREGULAR Lungs DIMINISHED AIR ENTERY Abdomen Soft, No Tenderness Neurological Normal Speech Extremities CHRONIC EDEMA OF LOWER EXTREMITIES, RLE edema > LLE Vascular Normal Pulses, Pulses Symmetrical Body Front and Back (Adult) 1) pronounced edema tenderness warmth poorly demarcated, no obvious pus 2) baseline edema limited redness in the inner aspet of ankel Assessment/Plan Assessment: 50-year-old gentleman was admitted for left lower extremity cellulitis failed outpatient antibiotic treatments. List of active problems #1 left lower extremity cellulitis: Patient has worsening redness of left lower extremity and also had multiple admissions for cellulitis. For the current episode he failed outpatient treatment with cephalexin, thus, he was admitted for inpatient treatment with IV antibiotics. Physical exam is remarkable for poorly demarcated erythematous area without obvious cause which puts Streptococcus ahead of Staphylococcus as a cause of cellulitis for this patient. He received 1 dose of ceftriaxone which seems to be a proper coverage for now. * Admit to general medical floor * Follow microbiology tests * Continue ceftriaxone * In case the patient did not improve consider consulting infectious disease service #2 bilateral worsening of lower extremity edema: The setting of chronic edema we need to rule out causes of worsening unilateral left lower extremity. Despite being on anticoagulation DVT needs to be ruled out other possibility is cellulitis. Ultrasound studies rule out DVT. * holding Lasix 20 mg by mouth daily for chronic lower extremity edema- just for today * Leg elevation #3 schizophrenia and bipolar mood disorder * Continue Haldol decanoate 90 mg IM injection every 2 weeks * Continue Depakote extended release 500 mg in the morning 500 mg at noon and 500 mg in the evening and 625 mg at bedtime #4 chronic atrial fibrillation- currently rate controlled and on eliquis for anticoagulation * Continue metoprolol 50 mg by mouth twice a day * Continue eliquis 5 mg by mouth twice a day #5 thrombocytopenia-patient doesn't seem to be septic. Thrombocytopenia could be the side effect of by mouth cephalexin. DC cephalexin. * Repeat labs in the a.m. #6 hypo-osmolar, euvolumic/hypovlumic hyponatremia: FeNa above >2% (patient is on lasix; no value). slightly elevated BUN/Cr ratio. possible dehydration Vs hypothyroid Vs adrenal deficiency or secondary to rescent increase in his lasix dose. The other possibility is SIADH (simce patient seems to be euvolumic) * fluid restirction * Hold lasix today * Repeat labs q 4 hours * Goal is to correct Na 6-8 meq in the first 24h and not >16 meq inb the first48 hours Pain medication-mild/moderate and severe pain pathway DVT prophylaxis-eliquis no alps Full Code Pain-mild mod severe Eliquis As Ranked By This Provider Problem List: 1. Venous stasis 2. Leg swelling 3. Cellulitis of right leg 4. Chronic pain 5. Lower extremity edema 6. Hyponatremia with decreased serum osmolality Core Measures/Miscellaneous Acute Coronary Syndrome ACS Diagnosis: No Cerebrovascular Accident CVA/TIA Diagnosis: No Congestive Heart Failure CHF Diagnosis: No Venous Thromboembolism VTE Risk Factors: Acute medical illness, Age > 40, Immobility, paresis, Obesity, Varicose veins [facility] prophylaxis d/t: No contraindications No VTE Pharm Prophylaxis d/t: No contraindications VTE Diagnosis: No VTE Type: NONE VTE Confirmed by (Test): NONE Severe Sepsis Severe Sepsis Present: No Septic Shock Septic Shock Present: No Miscellaneous Documentation Attending Case Discussed With: GLADIS DIXON MD Primary Care Physician: GLADIS DIXON MD Patient sees these Specialists ED physician Level of Patient Care: General Surgical GABE WILKES MD 07/01/16 1629: Attending MD Review Statement Attending Statement Attending MD Statement: examined this patient, discuss w/resident/PA/INSTRUMENT SHOP SUPERVISOR, agreed w/resident/PA/INSTRUMENT SHOP SUPERVISOR, reviewed EMR data (avail), discussed with nursing, amended to note Attending Assessment/Plan: Problems: -Lower extremity cellulitis -Chronic venous insufficiency of the lower extremities with edema -Atrial fibrillation -Schizophrenia/bipolar disorder -Hyponatremia (?chronic) -Thrombocytopenia Plan: -Admit general medicine -Cultures -Intravenous ceftriaxone -Continue maintenance medications except furosemide -Leg elevation -Fluid restriction serial electrolytes -Follow platelets
--- NOTE | 2016-07-01 10:20 | NUR ---
HOUSESTAFF IN FOR EVAL.
--- NOTE | 2016-07-01 10:30 | ULTRASOUND REPORT ---
EXAMINATION: US TRIPLEX LOWER EXTREMITY, BILATERAL CLINICAL INFORMATION: Bilateral leg edema. COMPARISON: None TECHNIQUE: Color-flow triplex imaging with spectral analysis and compression Doppler were performed on the bilateral lower extremities. FINDINGS: Respiratory variation, normal compression and augmented flow are noted throughout the bilateral lower extremities. The visualized common femoral vein, superficial femoral vein, profunda femoral vein, popliteal vein and midcalf peroneal and posterior tibial venous segments show no evidence of deep venous thrombosis. There is no Dubose's cyst. IMPRESSION: Normal triplex scan without evidence of deep venous thrombosis involving the bilateral lower extremities.
--- NOTE | 2016-07-01 10:34 | NUR ---
BED ASSIGNMENT 215-2
--- NOTE | 2016-07-01 10:53 | NUR ---
PT GOING TO ROOM 213. REPORT TO DIANA BLAKE.
--- NOTE | 2016-07-01 11:14 | NUR ---
PT TO FLOOR VIA STRETCHER. ALL PAPERWORK AND BELONGINGS SENT. CLINICAL STATUS UNCHANGED. FAMILY FRIEND TO FLOOR WITH PT.
[2016-07-01 11:50] VITALS: BP 128/65
[2016-07-01 14:30] VITALS: BP 126/68
--- NOTE | 2016-07-01 17:17 | Event Note ---
Event Note Event Note: patient does not want narcotics
[2016-07-01 21:45] VITALS: BP 122/84
[2016-07-02 07:09] VITALS: BP 108/70
--- NOTE | 2016-07-02 07:40 | PN- Housestaff ---
Subjective Follow-up For: cellulitis hyponatremia Subjective: Seen and examined patient. Personal complaints. Denies fever, chills, chest pain. States that his legs are "back to normal" Review of Systems Constitutional: Denies: chills, diaphoresis, fever, malaise, weakness, unexplained weight loss. Cardiovascular: Denies: chest pain, edema, orthopena, palpitations, peripheral edema, syncope. Respiratory: Denies: cough, hemoptysis, orthopnea, short of breath, sputum production, stridor, wheezing. Objective Last 24 Hrs of Vital Signs/I&O Vital Signs Date Time Temp Pulse Resp B/P Pulse O2 O2 Flow FiO2 Ox Delivery Rate 07/02 1425 98.8 75 20 134/80 94 Room Air 07/02 0856 85 108/70 07/02 0709 98.1 85 16 108/70 94 Room Air 07/02 0547 78 94 07/02 0052 93 95 07/01 2200 92 93 07/01 2145 99.4 98 18 122/84 95 Room Air 07/01 2133 98 122/84 07/01 1555 93 Room Air Room Air Intake & Output 07/02 1600 07/02 0800 07/02 0000 Intake Total 250 690 Output Total 500 500 975 Balance -500 -250 -285 Intake, IV 10 250 Intake, Oral 240 440 Number 0 Bowel Movements Output, Urine 500 500 975 Physical Exam General Appearance: Alert, Cooperative, No Acute Distress Cardiovascular: Regular Rate, Normal S1, Normal S2 Lungs: Clear to Auscultation, Normal Air Movement Abdomen: Soft, No Tenderness Extremities: no redness, swelling noted. venous stasis changes noted b/l Current Medications: Current Medications Sig/Fatou Start time Last Medication Dose Route Stop Time Status Admin Acetaminophen 650 MG .STK-MED ONE 07/02 0400 DC PO 07/02 0401 Acetaminophen 650 MG Q4P PRN 07/01 1200 AC 07/02 PO 0403 Albuterol Sulfate 2 PUF Q4P PRN 07/01 1145 AC 07/01 INH 1742 Apixaban 5 MG BID 07/01 1142 AC 07/02 PO 0856 Cefazolin Sodium 1,000 MG IQ8 07/03 0000 UNVr IV Ceftriaxone Sodium 2,000 MG DAILY 07/02 1000 AC 07/02 IV 1138 Divalproex Sodium 125 MG 2200 07/01 2200 AC 07/01 PO 2133 Divalproex Sodium 500 MG 0800,1300,1700,2200 07/01 1300 AC 07/02 PO 1507 Guaifenesin 10 ML Q6P PRN 07/02 0630 AC 07/02 PO 0701 Ketorolac 15 MG Q6P PRN 07/01 1200 AC Tromethamine IV Metoprolol Tartrate 50 MG BID 07/01 1142 AC 07/02 PO 0856 Morphine Sulfate 2 MG Q4P PRN 07/01 1200 DC IV Patient Medication 1 ED .STK-MED ONE 07/02 1324 DC Teaching ED 07/02 1325 Sodium Chloride 1,000 ML ONCE ONE 07/01 1200 DC 07/01 IV 07/01 195 1207 Trihexyphenidyl HCl 4 MG QPM 07/01 2200 AC 07/01 PO 2134 Trihexyphenidyl HCl 2 MG 0800,1300,1700 07/01 1300 AC 07/02 PO 1507 Last 24 Hrs of Lab/Tushar Results Last 24 Hrs of Labs/Mics: Laboratory Tests 07/02/16 0034: Anion Gap 7, Estimated GFR > 60, BUN/Creatinine Ratio 18.3 07/01/16 2016: Anion Gap 12, Estimated GFR > 60, BUN/Creatinine Ratio 20.0 07/01/16 1616: Anion Gap 12, Estimated GFR > 60, BUN/Creatinine Ratio 20.0 Assessment/Plan Assessment: 50-year-old gentleman past history of atrial fibrillation (on NOAC), bipolar disorder, schizophrenia, hearing loss, chronic bilateral lower extremity edema and frequent admission and treatment for lower extremity cellulitis (most recent in April 2016 treated with doxycycline). Current admission for outpatient failure of management of cellulitis and hyponatremia. Problem list: cellulitis Hyponatremia Atrial fibrillation Bipolar disorder Schizophrenia Hypertension Plan: Patient remains afebrile, no increased white count, noted will narrow coverage to IV cefazolinm on day 2 of antibiotic Clinically his legs show improvement from admission Sodium 129 today, we'll continue to monitor and continue 1L sodium restriction Continue home meds of Depakote,Artane, lopressor,eliquis dvt prophylaxis:eliquis full code Problem List: 1. Bipolar I disorder 2. Schizophrenia 3. Cellulitis 4. Hyponatremia with decreased serum osmolality Pain Ratin Pain Location: na Pain Goal: Pain 4 or less Pain Plan: current regimen Tomorrow's Labs & Rationales: sreep
--- NOTE | 2016-07-02 11:03 | PN- Att Addend ---
Attending Addendum Attending Brief Note Events over the weekend noted patient sitting in the chair with his legs elevated. The swelling and the redness is down in both. Vital signs are stable his a febrile his white count is okay. We'll continue treating for his cellulitis 24 TOTALS 07/02 0000 07/01 0000 Intake Total 1090 Output Total 1600 Balance -510 Intake, IV 350 Intake, Oral 740 Output, Urine 1600 Patient 280 lb Weight Current Medications Sig/Fatou Start time Last Medication Dose Route Stop Time Status Admin Acetaminophen 650 MG Q4P PRN 07/01 1200 AC 07/02 PO 0403 Albuterol Sulfate 2 PUF Q4P PRN 07/01 1145 AC 07/01 INH 1742 Apixaban 5 MG BID 07/01 1142 AC 07/02 PO 0856 Ceftriaxone Sodium 2,000 MG DAILY 07/02 1000 AC IV Divalproex Sodium 125 MG 2200 07/01 2200 AC 07/01 PO 2133 Divalproex Sodium 500 MG 0800,1300,1700,2200 07/01 1300 AC 07/02 PO 0856 Guaifenesin 10 ML Q6P PRN 07/02 0630 AC 07/02 PO 0701 Ketorolac 30 MG .STK-MED ONE 07/01 1514 DC Tromethamine IM 07/01 1515 Ketorolac 15 MG Q6P PRN 07/01 1200 AC Tromethamine IV Metoprolol Tartrate 50 MG BID 07/01 1142 AC 07/02 PO 0856 Morphine Sulfate 2 MG Q4P PRN 07/01 1200 DC IV Sodium Chloride 1,000 ML ONCE ONE 07/01 1200 DC 07/01 IV 07/01 1959 1207 Trihexyphenidyl HCl 4 MG QPM 07/01 2200 AC 07/01 PO 2134 Trihexyphenidyl HCl 2 MG 0800,1300,1700 07/01 1300 AC 07/02 PO 0856 Trihexyphenidyl HCl 2 MG TID 07/01 1143 CAN PO Laboratory Tests 07/02/16 0034: Anion Gap 7, Estimated GFR > 60, BUN/Creatinine Ratio 18.3 07/01/16 2016: Anion Gap 12, Estimated GFR > 60, BUN/Creatinine Ratio 20.0 07/01/16 1616: Anion Gap 12, Estimated GFR > 60, BUN/Creatinine Ratio 20.0 07/01/16 1204: Anion Gap 10, Estimated GFR > 60, BUN/Creatinine Ratio 21.7 07/01/16 0925: Urine Color YEL, Urine Clarity CLEAR, Urine pH 6.0, Ur Specific Fenton 1.010, Urine Protein NEG, Urine Ketones NEG, Urine Nitrite NEG, Urine Bilirubin NEG, Urine Urobilinogen 1.0, Ur Leukocyte Esterase NEG, Ur Microscopic EXAM NOT REQUIRED, Urine Hemoglobin NEG, Urine Glucose NEG 07/01/16 0925: Urine Osmolality 368, Ur Random Creatinine 21.2, Ur Random Sodium 104 H, Ur Random Potassium 18.9, Fraction Sodium Excret 2.3 H 07/01/16 0908: Anion Gap 9, Estimated GFR > 60, BUN/Creatinine Ratio 25.0, Glucose 123 H, Serum Osmolality 270 L, Calcium 9.5, Total Bilirubin 1.4 H, AST 47, ALT 50, Alkaline Phosphatase 60, Total Protein 7.2, Albumin 4.0, Globulin 3.2, Albumin/ Globulin Ratio 1.3, TSH 1.930, Cortisol AM Sample 10.0, CBC w Diff NO MAN DIFF REQ, RBC 4.04 L, MCV 94.5 H, MCH 32.0 H, RDW 14.9 H, MPV 7.6, Gran % 47.8, Lymphocytes % 34.1, Monocytes % 16.3 H, Eosinophils % 1.5, Basophils % 0.3, Absolute Granulocytes 3.1, Absolute Lymphocytes 2.2, Absolute Monocytes 1.0 H, Absolute Eosinophils 0.1, Absolute Basophils 0, PUBS MCHC 33.8, Valproic Acid 123.6 H Monitor sodium chronically low.
[2016-07-02 14:25] VITALS: BP 134/80
--- NOTE | 2016-07-02 17:55 | Event Note ---
Event Note Event Note: For trt of cellulitis pt was scheduled to recieve Ancef and Ceftriaxone. As pt has allergy to penicillin I cancelled both abx and started pt on IV clindamycin 600mg q8 per recommendations. If pt doesn't tolerate this regimen will consider Doxycycline.
[2016-07-02 22:36] VITALS: BP 138/80
[2016-07-03 06:21] VITALS: BP 128/80
--- NOTE | 2016-07-03 06:56 | PN- Housestaff ---
See Addendum Subjective Follow-up For: cellulitis hyponatremia Subjective: Seen and examined patient, family member at bedside. Offers no complaints and feeling well. No worsening of leg swelling fever, chills, chest pain. Review of Systems Constitutional: Denies: chills, diaphoresis, fever, malaise, weakness, unexplained weight loss. Cardiovascular: Denies: chest pain, edema, orthopena, palpitations, peripheral edema, syncope. Respiratory: Denies: cough, hemoptysis, orthopnea, short of breath, sputum production, stridor, wheezing. Objective Last 24 Hrs of Vital Signs/I&O Vital Signs Date Time Temp Pulse Resp B/P Pulse O2 O2 Flow FiO2 Ox Delivery Rate 07/03 0621 98.4 87 20 128/80 93 Room Air 07/03 0035 79 95 07/02 2236 97.4 104 20 138/80 93 Room Air 07/02 2219 97 07/02 2152 88 128/78 07/02 1425 98.8 75 20 134/80 94 Room Air 07/02 0856 85 108/70 Intake & Output 07/03 1600 07/03 0800 07/03 0000 Intake Total Output Total 250 750 Balance -250 -750 Output, Urine 250 750 Physical Exam General Appearance: Alert, Oriented X3, Cooperative, No Acute Distress Cardiovascular: Regular Rate, Normal S1, Normal S2 Lungs: Clear to Auscultation, Normal Air Movement Extremities: No Edema, No Tenderness/Swelling Current Medications: Current Medications Sig/Fatou Start time Last Medication Dose Route Stop Time Status Admin Acetaminophen 650 MG Q4P PRN 07/01 1200 AC 07/02 PO 0403 Albuterol Sulfate 2 PUF Q4P PRN 07/01 1145 AC 07/01 INH 1742 Apixaban 5 MG BID 07/01 1142 AC 07/02 PO 2146 Cefazolin Sodium 1,000 MG IQ8 07/03 0000 CAN IV Ceftriaxone Sodium 2,000 MG DAILY 07/02 1000 DC 07/02 IV 1138 Clindamycin 600 MG IQ8 07/03 1600 AC Dextrose/Water 50 ML IV Clindamycin 600 MG IQ8 07/03 0000 DC 07/03 Dextrose/Water 50 ML IV 0113 Divalproex Sodium 125 MG 2200 07/01 2200 AC 07/02 PO 2146 Divalproex Sodium 500 MG 0800,1300,1700,2200 07/01 1300 AC 07/02 PO 2146 Guaifenesin 10 ML Q6P PRN 07/02 0630 AC 07/02 PO 0701 Ketorolac 15 MG Q6P PRN 07/01 1200 AC Tromethamine IV Metoprolol Tartrate 50 MG BID 07/01 1142 AC 07/02 PO 2152 Patient Medication 1 ED .STK-MED ONE 07/02 1324 DC Teaching ED 07/02 1325 Trihexyphenidyl HCl 4 MG QPM 07/01 2200 AC 07/02 PO 2146 Trihexyphenidyl HCl 2 MG 0800,1300,1700 07/01 1300 AC 07/02 PO 1814 Last 24 Hrs of Lab/Tushar Results Last 24 Hrs of Labs/Mics: Laboratory Tests 07/03/16 0655: Sodium Pending, Potassium Pending, Chloride Pending, Carbon Dioxide Pending, Anion Gap Pending, BUN Pending, Creatinine Pending, BUN/Creatinine Ratio Pending Assessment/Plan Assessment: 50-year-old gentleman past history of atrial fibrillation (on NOAC), bipolar disorder, schizophrenia, hearing loss, chronic bilateral lower extremity edema and frequent admission and treatment for lower extremity cellulitis (most recent in April 2016 treated with doxycycline). Current admission for outpatient failure of management of cellulitis and hyponatremia. Problem list: cellulitis Hyponatremia Atrial fibrillation Bipolar disorder Schizophrenia Hypertension Plan: Patient remains afebrile, no increased white count, day 4 of antibiotic Clinically his legs show improvement from admission sodium 128 today, spoke to nursing, he is complaint with 1L sodium restriction Continue home meds of Depakote,Artane, lopressor,eliquis dvt prophylaxis:eliquis full code Problem List: 1. Bipolar I disorder 2. Cellulitis 3. Schizophrenia Pain Ratin Pain Location: Not applicable Pain Goal: Pain 4 or less Pain Plan: Current regimen Tomorrow's Labs & Rationales: bep
--- NOTE | 2016-07-03 12:59 | PN- Att Addend ---
Attending Addendum Attending Brief Note Patient looking and feeling better, the swelling and redness down in both legs right one is better than the left one. His vital signs are stable he has no fever. No other changes on physical will continue 1 more day of IV antibiotics and reassess in the morning if stable then probably switch to by mouth antibiotics and start disposition plans. Current Medications Sig/Fatou Start time Last Medication Dose Route Stop Time Status Admin Acetaminophen 650 MG Q4P PRN 07/01 1200 AC 07/03 PO 1018 Albuterol Sulfate 2 PUF Q4P PRN 07/01 1145 AC 07/01 INH 1742 Apixaban 5 MG BID 07/01 1142 AC 07/03 PO 1019 Cefazolin Sodium 1,000 MG IQ8 07/03 0000 CAN IV Ceftriaxone Sodium 2,000 MG DAILY 07/02 1000 DC 07/02 IV 1138 Clindamycin 600 MG IQ8 07/03 1600 AC Dextrose/Water 50 ML IV Clindamycin 600 MG IQ8 07/03 0000 DC 07/03 Dextrose/Water 50 ML IV 0113 Divalproex Sodium 125 MG 2200 07/01 2200 AC 07/02 PO 2146 Divalproex Sodium 500 MG 0800,1300,1700,2200 07/01 1300 AC 07/03 PO 0839 Guaifenesin 10 ML Q6P PRN 07/02 0630 AC 07/02 PO 0701 Ketorolac 15 MG Q6P PRN 07/01 1200 AC Tromethamine IV Metoprolol Tartrate 50 MG BID 07/01 1142 AC 07/03 PO 1018 Patient Medication 1 ED .STK-MED ONE 07/02 1324 DC Teaching ED 07/02 1325 Trihexyphenidyl HCl 4 MG QPM 07/01 2200 AC 07/02 PO 2146 Trihexyphenidyl HCl 2 MG 0800,1300,1700 07/01 1300 AC 07/03 PO 0840 Laboratory Tests 07/03/16 0655: Anion Gap 9, Estimated GFR > 60, BUN/Creatinine Ratio 18.3 Vital Signs Date Time Temp Pulse Resp B/P Pulse O2 O2 Flow FiO2 Ox Delivery Rate 07/03 1018 87 128/80 07/03 0800 BIPAP 07/03 0621 98.4 87 20 128/80 93 Room Air Intake & Output 07/03 1600 Intake Total Output Total 400 Balance -400 Output, Urine 400
[2016-07-03 14:29] VITALS: BP 126/80
--- NOTE | 2016-07-03 17:20 | Patient Discharge Instructions ---
Discharge Instructions General Discharge Information You were seen/treated for: Cellulitis hyponatremia Special Instructions: please follow up with your primary care doctor within one week. Please repeat BEP to monitor your sodium level Continue 1 L fluid restriction Acute Coronary Syndrome Inclusion Criteria At DC or during hospital stay patient has or had the following: ACS DIAGNOSIS No Discharge Core Measures Meds if any: Prescribed or Continued at Discharge Meds if any: NOT Prescribed or Continued at Discharge Congestive Heart Failure Inclusion Criteria At DC or during hospital stay patient has or had the following: CHF DIAGNOSIS No Discharge Core Measures Meds if any: Prescribed or Continued at Discharge Meds if any: NOT Prescribed or Continued at Discharge Cerebrovascular accident Inclusion Criteria At DC or during hospital stay patient has or had the following: CVA/TIA Diagnosis No Discharge Core Measures Meds if any: Prescribed or Continued at Discharge Meds if any: NOT Prescribed or Continued at Discharge Venous thromboembolism Inclusion Criteria VTE Diagnosis No VTE Type NONE VTE Confirmed by (Test) NONE Discharge Core Measures - Per Current guidelines, there needs to be overlap - treatment for the first 5 days of Warfarin therapy. - If discharged on Warfarin prior to 5 days of - overlap therapy, the patient will need to be - assessed for post discharge needs including - *Post discharge parental anticoagulation - *Warfarin and/or parental anticoagulation education - *Follow up date to check INR post discharge At least 5 days overlap therapy as Inpatient No Meds if any: Prescribed or Continued at Discharge Note: Overlap Therapy is Warfarin and Anticoagulant Meds if any: NOT Prescribed or Continued at Discharge
[2016-07-03 22:13] VITALS: BP 130/80
[2016-07-04 06:42] VITALS: BP 140/82
--- NOTE | 2016-07-04 08:26 | PN- Housestaff ---
Subjective Follow-up For: Cellulitis chronic hyponatremia Subjective: Seen and examined patient, offers no complaints. Denies fever, pains, worsening lower extremity swelling. Review of Systems Constitutional: Denies: chills, diaphoresis, fever, malaise, weakness, unexplained weight loss. Cardiovascular: Denies: chest pain, edema, orthopena, palpitations, peripheral edema, syncope. Respiratory: Denies: cough, hemoptysis, orthopnea, short of breath, sputum production, stridor, wheezing. Objective Last 24 Hrs of Vital Signs/I&O Vital Signs Date Time Temp Pulse Resp B/P B/P Pulse O2 O2 Flow FiO2 Mean Ox Delivery Rate 07/04 0642 97.8 68 18 140/82 95 Room Air 07/04 0255 72 95 07/04 0000 Room Air 07/03 2213 98.1 70 21 130/80 97 07/03 2140 70 97 07/03 2058 77 126/80 07/03 1429 98.1 77 20 126/80 96 Room Air 07/03 1018 87 128/80 Intake & Output 07/04 1600 07/04 0800 07/04 0000 Intake Total 100 100 Output Total 400 200 Balance -300 -100 Intake, Oral 100 100 Output, Urine 400 200 Physical Exam General Appearance: Alert, Oriented X3, Cooperative, No Acute Distress Cardiovascular: Regular Rate, Normal S1, Normal S2 Lungs: Clear to Auscultation, Normal Air Movement Abdomen: Soft, No Tenderness Extremities: No Edema, No Tenderness/Swelling Current Medications: Current Medications Sig/Fatou Start time Last Medication Dose Route Stop Time Status Admin Acetaminophen 650 MG .STK-MED ONE 07/03 1016 DC PO 07/03 1017 Acetaminophen 650 MG Q4P PRN 07/01 1200 AC 07/03 PO 1018 Albuterol Sulfate 2 PUF Q4P PRN 07/01 1145 AC 07/01 INH 1742 Apixaban 5 MG BID 07/01 1142 AC 07/03 PO 2058 Clindamycin 600 MG IQ8 07/03 1600 DC 07/04 Dextrose/Water 50 ML IV 07/04 0000 0019 Divalproex Sodium 125 MG 2200 07/01 2200 AC 07/03 PO 2058 Divalproex Sodium 500 MG 0800,1300,1700,2200 07/01 1300 AC 07/04 PO 0817 Doxycycline Hyclate 100 MG BID 07/04 1000 AC PO Guaifenesin 10 ML Q6P PRN 07/02 0630 AC 07/04 PO 0604 Ketorolac 15 MG Q6P PRN 07/01 1200 AC Tromethamine IV Metoprolol Tartrate 50 MG BID 07/01 1142 AC 07/03 PO 205 Trihexyphenidyl HCl 4 MG QPM 07/01 2200 AC 07/03 PO 2136 Trihexyphenidyl HCl 2 MG 0800,1300,1700 07/01 1300 AC 07/04 PO 0816 Last 24 Hrs of Lab/Tushar Results Last 24 Hrs of Labs/Mics: Laboratory Tests 07/04/16 0615: Anion Gap 10, Estimated GFR > 60, BUN/Creatinine Ratio 25.0 Assessment/Plan Assessment: 50-year-old gentleman past history of atrial fibrillation (on NOAC), bipolar disorder, schizophrenia, hearing loss, chronic bilateral lower extremity edema and frequent admission and treatment for lower extremity cellulitis (most recent in April 2016 treated with doxycycline). Current admission for outpatient failure of management of cellulitis and hyponatremia. Problem list: cellulitis Hyponatremia Atrial fibrillation Bipolar disorder Schizophrenia Hypertension Plan: Patient remains afebrile, no increased white count, day 3/7 of antibiotic, will switch to PO doxycyline today for a total of 7 days Clinically his legs show improvement from admission sodium 129 today, most likely SIADH, will continue with 1L fluid restriction upon discharge and will follow up with Dr. Garsia upon discharge Continue home meds of Depakote,Artane, lopressor,eliquis dvt prophylaxis:eliquis full code Stable for discharge today Problem List: 1. Cellulitis 2. Schizophrenia 3. Cellulitis 4. Afib Pain Ratin Pain Location: na Pain Goal: Pain 4 or less Pain Plan: current regimen Tomorrow's Labs & Rationales: none required
[2016-07-04] MEDS ORDERED: DOXYCYCLINE HY100 M2 PO (13:37)
[2016-07-04 13:56] VITALS: BP 128/81
--- NOTE | 2016-07-04 18:18 | PN- Att Addend ---
Attending Addendum Attending Brief Note Patient better legs are better, his febrile and sodium is still low were given instructions when he goes home to restrict his fluid in follow-up blood work as an outpatient patient can be discharged today on oral antibiotics. See this EMR and the W 10 Laboratory Tests 07/04/16 0615: Anion Gap 10, Estimated GFR > 60, BUN/Creatinine Ratio 25.0 Vital Signs Date Time Temp Pulse Resp B/P B/P Pulse O2 O2 Flow FiO2 Mean Ox Delivery Rate 07/04 1356 97.9 100 20 128/81 94 Intake & Output 07/04 1600 Intake Total 660 Output Total Balance 660 Intake, Oral 660 Number 1 Bowel Movements
--- NOTE | 2016-07-13 13:10 | Admission Certification ---
Admission Certification Certification Statement - As attending physician, I certify that at the time of - admission, based on clinical presentation, severity of - symptoms, need for further diagnostic testing and - therapeutic interventions, and risk of adverse outcomes - without in-hospital treatment, in my clinical assessment, - this patient requires an acute hospital stay for a minimum - of two nights or longer. I have also considered psychsocial - factors such as support system, advanced age, financial - issues, cognitive issues, and failed out-patient treatments, - past re-admission history, safety of patient, and lack of - compliance as applicable. Specific rationale supporting this admission is: Cellulitis of the legs
--- NOTE | 2016-07-13 13:23 | Discharge Summary ---
Visit Information Visit Dates Admission Date: 07/01/16 Discharge Date: 07/04/16 Hospital Course Course Attending Physician: GLADIS VARGAS MD Primary Care Physician: ZACK HAQ,GLADIS Hospital Course: 50-year-old well-known to the hospital vascular in the wound Center again had a flareup of his cellulitis of the lower extremities came to the hospital was treated with local care started elevating the legs and antibiotic therapy , his other problem is his hyponatremia which is chronic patient was discharged with improved legs follow as an outpatient with the wound Center and myself. Also to follow with his psychiatrist. Complications: None Allergies: Coded Allergies: amoxicillin (From AUGMENTIN) (Severe, ANGIOEDEMA, RASH 05/16/15) clavulanic acid (From AUGMENTIN) (Severe, ANGIOEDEMA, RASH 05/16/15) Penicillins (SWELLING 05/16/15) Significant Procedures: SERVICE DATE: 07/01/16 EXAM TYPE: US - US-EXT BILAT VENOUS DOPPLER EXAMINATION: US TRIPLEX LOWER EXTREMITY, BILATERAL CLINICAL INFORMATION: Bilateral leg edema. COMPARISON: None TECHNIQUE: Color-flow triplex imaging with spectral analysis and compression Doppler were performed on the bilateral lower extremities. FINDINGS: Respiratory variation, normal compression and augmented flow are noted throughout the bilateral lower extremities. The visualized common femoral vein, superficial femoral vein, profunda femoral vein, popliteal vein and midcalf peroneal and posterior tibial venous segments show no evidence of deep venous thrombosis. There is no Dubose's cyst. IMPRESSION: Normal triplex scan without evidence of deep venous thrombosis involving the bilateral lower extremities. Pertinent Lab Results: Laboratory Tests 07/02/16 0034: Anion Gap 7, Estimated GFR > 60, BUN/Creatinine Ratio 18.3 07/01/16 2016: Anion Gap 12, Estimated GFR > 60, BUN/Creatinine Ratio 20.0 07/01/16 1616: Anion Gap 12, Estimated GFR > 60, BUN/Creatinine Ratio 20.0 07/01/16 1204: Anion Gap 10, Estimated GFR > 60, BUN/Creatinine Ratio 21.7 07/01/16 0925: Urine Color YEL, Urine Clarity CLEAR, Urine pH 6.0, Ur Specific [place] 1.010, Urine Protein NEG, Urine Ketones NEG, Urine Nitrite NEG, Urine Bilirubin NEG, Urine Urobilinogen 1.0, Ur Leukocyte Esterase NEG, Ur Microscopic EXAM NOT REQUIRED, Urine Hemoglobin NEG, Urine Glucose NEG 07/01/16 0925: Urine Osmolality 368, Ur Random Creatinine 21.2, Ur Random Sodium 104 H, Ur Random Potassium 18.9, Fraction Sodium Excret 2.3 H 07/01/16 0908: Anion Gap 9, Estimated GFR > 60, BUN/Creatinine Ratio 25.0, Glucose 123 H, Serum Osmolality 270 L, Calcium 9.5, Total Bilirubin 1.4 H, AST 47, ALT 50, Alkaline Phosphatase 60, Total Protein 7.2, Albumin 4.0, Globulin 3.2, Albumin/ Globulin Ratio 1.3, TSH 1.930, Cortisol AM Sample 10.0, CBC w Diff NO MAN DIFF REQ, RBC 4.04 L, MCV 94.5 H, MCH 32.0 H, RDW 14.9 H, MPV 7.6, Gran % 47.8, Lymphocytes % 34.1, Monocytes % 16.3 H, Eosinophils % 1.5, Basophils % 0.3, Absolute Granulocytes 3.1, Absolute Lymphocytes 2.2, Absolute Monocytes 1.0 H, Absolute Eosinophils 0.1, Absolute Basophils 0, PUBS MCHC 33.8, Valproic Acid 123.6 H Monitor sodium chronically low. 07/03/16 0655: 07/04/16 0615: Anion Gap 10, Estimated GFR > 60, BUN/Creatinine Ratio 25.0 Disposition Summary Disposition Principal Diagnosis: Cellulitis of the legs Additional Diagnosis: Atrial fibrillation Bipolar disorder Schizophrenia Leg edema Hyponatremia Discharge Disposition: home health services Discharge Instructions General Discharge Information Code Status: Full Code Patient's Diet: Healthy heart monitor fluid intake Patient's Activity: Is tolerated and elevate the leg swelling at home Follow-Up Instructions/Appts: Dr. Vargas and vascular surgeon Medications at Discharge Discharge Medications: Continue taking these medications: Haloperidol Decanoate (Haloperidol Decanoate) 100 MG/1 ML VIAL 0.9 Milliliters INTRAMUSC EVERY 2 WEEKS Comments: NOT GIVEN Trihexyphenidyl HCl (Trihexyphenidyl HCl) 2 MG TABLET 1 Tablet ORAL THREE TIMES DAILY Comments: Last Taken: 07/04/16 Time: 01:00 PM Divalproex Sodium (Depakote ER) 500 MG TAB.ER.24H 1 Tablet ORAL 4 TIMES A DAY Instructions: 500 MG AM, 500 MG NOON, 500 MG JEANNE, 625 MG AT BED TIME Comments: Last Taken: 07/04/16 Time: 01:00 PM Apixaban (Eliquis) 5 MG TABLET 1 Tablet ORAL TWICE DAILY Comments: Last Taken: 07/04/16 Time: 09:39 AM Metoprolol Tartrate (Metoprolol Tartrate) 50 MG TABLET 1 Tablet ORAL TWICE DAILY Qty = 60 Comments: Last Taken: 07/04/16 Time: 09:39 AM Albuterol Sulfate (Proventil Hfa) 6.7 GM HFA.AER.AD 2 Puff Inhale through mouth Every 4 hours as needed for BREATHING PROBLEMS Comments: NOT GIVEN Divalproex Sodium (Depakote) 125 MG TABLET.DR 1 Tablet ORAL AT BED TIME Qty = 30 Comments: Last Taken: 07/03/16 Time: 9:00 PM Furosemide (Lasix) 20 MG TABLET 1 Tablet ORAL DAILY Qty = 4 Comments: NOT GIVEN WHILE IN HOSPITAL Trihexyphenidyl HCl (Trihexyphenidyl HCl) 2 MG TABLET 2 Tablet ORAL Every night Comments: Last Taken: 07/04/16 Time: 09:36 PM Start taking the following new medications: Doxycycline Hyclate (Doxycycline Hyclate) 100 MG CAPSULE 100 Milligram ORAL TWICE DAILY Days = 5 No Refills Comments: Last Taken: 07/04/16 Time: 12:02 PM Copies To: GLADIS VARGAS MD Attending Review Statement Documenting Attending: GLADIS VARGAS MD
== END 2016-07-04 15:20 | DRG 603 ==
LOC: CANRESERV → ENRESERVDT → ENRESERVTM → ERH 08:25 → ERHI 10:04 → 2NB 10:04 → ENPENDDIS 07-04 14:06 → 2NB 07-04 15:20
PROVIDERS: Emergency Medicine; ADMIT Internal Medicine
PROC: 5A09357 Assistance with Respiratory Ventilation, Less than 24 Consecutive Hours, Continuous Positive Airway Pressure (ICD-10-PCS; principal; 2016-07-01)
DX: L03.116 Cellulitis of left lower limb (principal); D69.6 Thrombocytopenia, unspecified; I48.2 Chronic atrial fibrillation; F25.9 Schizoaffective disorder, unspecified; E87.1 Hypo-osmolality and hyponatremia; I87.2 Venous insufficiency (chronic) (peripheral); J44.9 Chronic obstructive pulmonary disease, unspecified; J45.909 Unspecified asthma, uncomplicated; E66.9 Obesity, unspecified; Z68.38 Body mass index [BMI] 38.0-38.9, adult; I10 Essential (primary) hypertension
CPT/HCPCS: 2NBP; 84133; 84300; 36415; 81003; 82436; 82570; 87040; 93970; G0463; J0696; J1885; J3490

== ENCOUNTER 2016-09-25 05:20 | Emergency (ER) | payer OTHER, MEDICARE ==
[~2016-09-25 05:20] MED LIST changes: +DOXYCYCLINE HY100 M2 PO
--- NOTE | 2016-09-25 05:28 | ED THROAT/DENTAL COMPLAINT ---
History of Present Illness General Chief Complaint: General Adult Stated Complaint: "BIBA PER EMS BLEEDING FROM MOUTH HAD TEETH REMOVE Source: patient, family, old records, EMS Exam Limitations: no limitations Vital Signs & Intake/Output Vital Signs & Intake/Output Vital Signs Date Time Temp Pulse Resp B/P B/P Pulse O2 O2 Flow FiO2 Mean Ox Delivery Rate 09/25 0819 98 18 112/70 96 09/25 0658 96.8 91 18 106/58 95 Room Air 09/25 0542 95 Room Air 09/25 0525 97.3 99 18 126/83 95 Room Air Allergies Coded Allergies: amoxicillin (From AUGMENTIN) (Severe, ANGIOEDEMA, RASH 05/16/15) clavulanic acid (From AUGMENTIN) (Severe, ANGIOEDEMA, RASH 05/16/15) Penicillins (SWELLING 05/16/15) Reconcile Medications Albuterol Sulfate (Proventil Hfa) 6.7 GM HFA.AER.AD 2 PUF INH Q4 PRN BREATHING PROBLEMS (Reported) Apixaban (Eliquis) 5 MG TABLET 1 TAB PO BID BLOOD THINNER (Reported) Divalproex Sodium (Depakote ER) 500 MG TAB.ER.24H 1 TAB PO 4 TIMES/DAY MENTAL HEALTH (Reported) 500 MG AM, 500 MG NOON, 500 MG JEANNE, 625 MG AT BED TIME Divalproex Sodium (Depakote) 125 MG TABLET.DR 1 TAB PO AT BED TIME MENTAL HEALTH (Reported) Doxycycline Hyclate 100 MG CAPSULE 100 MG PO BID CELLULITIS Furosemide (Lasix) 20 MG TABLET 1 TAB PO DAILY LEG SWELLING Haloperidol Decanoate 100 MG/1 ML VIAL 0.9 ML IM Q2W MENTAL HEALTH (Reported) Metoprolol Tartrate 50 MG TABLET 1 TAB PO BID HEART/BP (Reported) Trihexyphenidyl HCl 2 MG TABLET 1 TAB PO TID ANTISPASMODIC (Reported) Trihexyphenidyl HCl 2 MG TABLET 2 TAB PO QPM ANTISPASMODIC (Reported) Triage Nurses Notes Reviewed? yes Onset: Abrupt Duration: hour(s): (2) Timing: recent history Injury Environment: home Severity: moderate No Modifying Factors: none HPI: This is a 48-year-old male with history of A. fib on Eliquis, history of schizoaffective disorder status post dental extraction yesterday, 2 teeth left upper molars at [facility] yesterday. Patient states that he woke up around 4 AM with profuse bleeding. He feels like he may have dislodged a suture. Patient's uncle reports that he held Eliquis 4 days prior to the surgery. Patient states that he filled to sleep apnea mask with blood. Denies having chest pain or shortness of breath but is very emotional and anxious. (LILA HERNANDEZ MD) Past History Travel History Traveled to [place] past 21 day No Medical History Any Pertinent Medical History? see below for history Neurological: NONE EENT: HEARING LOSS Cardiovascular: AFIB Respiratory: asthma, COPD Gastrointestinal: HEARTBURN Hepatic: NONE Renal: NONE Musculoskeletal: CHIP LEFT WRIST. Psychiatric: schizo affective disorder, rule out bipolar features Endocrine: NONE Blood Disorders: anemia Cancer(s): NONE CHRONOMETER TESTER/Reproductive: NONE History of MRSA: Yes History of VRE: No History of CDIFF: No Influenza Vaccine: 01/17/16 Tetanus Vaccine: 05/08/12 Surgical History Surgical History: non-contributory Psychosocial History Who do you live with Family Services at Home Nursing What is your primary language Sammarinese Tobacco Use: Refused to answer Family History Family History, If Any: MOTHER FH: diabetes mellitus Hx Contributory? No (LILA HERNANDEZ MD) Review of Systems Review of Systems Constitutional: Denies: fever. EENTM: Reports: no symptoms. Respiratory: Denies: cough. Cardiovascular: Denies: chest pain. GI: Reports: no symptoms. Genitourinary: Reports: no symptoms. Musculoskeletal: Reports: no symptoms. Skin: Reports: no symptoms. Neurological/Psychological: Reports: anxiety. Hematologic/Endocrine: Reports: bleeding. Immunologic/Allergic: Reports: no symptoms. All Other Systems: Reviewed and Negative (DAVID HAQ,LILA) Physical Exam Physical Exam General Appearance: well developed/nourished, alert, awake, anxious, mild distress Head: atraumatic, normal appearance Eyes: Bilateral: PERRL. Nose: normal inspection Mouth/Throat: BLEEDING FROM LEFT UPPER GUMS Neck: normal inspection, supple, full range of motion Cardiovascular/Respiratory: normal breath sounds, normal peripheral pulses Neurologic/Psych: awake, alert Skin: intact, normal color, warm/dry Core Measures ACS in differential dx? No Severe Sepsis Present: No Septic Shock Present: No (LILA HERNANDEZ MD) Progress Differential Diagnosis: GINGIVAL BLEEDING POSTPROCEDURE Plan of Care: Orders Procedure Date/time Status PARTIAL THROMBOPLASTIN TIME 09/25 548 Complete PROTHROMBIN TIME 09/25 548 Complete CBC WITHOUT DIFFERENTIAL 09/25 548 Complete TYPE & SCREEN (NOT X-MATCH) 09/25 548 Complete Laboratory Tests 09/25/16 0553: PT 14.1 H, INR 1.35 H, APTT 46 H, CBC w Diff MAN DIFF ORDERED, RBC 3.77 L, MCV 96.2 H, MCH 32.0 H, RDW 14.3, MPV 7.7, Gran % 35.2 L, Lymphocytes % 48.6, Monocytes % 15.4 H, Eosinophils % 0.3, Basophils % 0.5, Absolute Granulocytes 3.2, Segmented Neutrophils 34 L, Absolute Lymphocytes 4.4 H, Lymphocytes 49, Monocytes 17 H, Absolute Monocytes 1.4 H, Absolute Eosinophils 0, Absolute Basophils 0, Platelet Estimate DECREASED, Polychromasia 1+, PUBS MCHC 33.2 6:38 AM SURGICELL AND GAUZE REPLACED. BLEEDING SEEMS TO HAVE TAPERED DOWN (LILA HERNANDEZ MD) Hand-Off Endorsed To: ROSALIE VCITORIA MD Endorsed Time: 0700 Pending: other (REEVALUATION) (LILA HERNANDEZ MD) Comments: Continues to have gingival oozing. Unable to identify specific area to suture or cauterize. [facility] [place] [facility] [place] and accepted for evaluation. (ROSALIE VICTORIA MD) Departure Departure Condition: Stable Clinical Impression Primary Impression: Gingival bleeding Referrals: GLADIS DIXON MD (PCP/Family) Departure Forms: Customer Survey General Discharge Information (LILA HERNANDEZ MD) Departure Time of Disposition: 930 Disposition: OTHER PYSCH (ROSALIE VICTORIA MD)
[2016-09-25 06:12] LABS: ABSOLUTE BASOPHIL COUNT 0 /CUMM (0.0-0.2); ABSOLUTE EOSINOPHIL COUNT 0 /CUMM (0.0-0.7); ABSOLUTE GRANULOCYTE CT 3.2 /CUMM (1.4-6.5); ABSOLUTE LYMPH COUNT 4.4 /CUMM (1.2-3.4); ABSOLUTE MONOCYTE COUNT 1.4 /CUMM (0.10-0.60); BASOPHIL % 0.5 % (0.0-2.0); EOSINOPHIL % 0.3 % (0-5); GRANULOCYTE % 35.2 % (42.2-75.2); HEMATOCRIT 36.2 % (42-52); MEAN CORPUSCULAR HGB CONC 33.2 G/DL (33.0-37.0); MEAN CORPUSCULAR VOLUME 96.2 FL (80.0-94.0); MEAN PLATELET VOLUME 7.7 FL (7.4-10.4); PLATELET COUNT 115 /CUMM (130-400); RBC DISTRIBUTION WIDTH 14.3 % (11.5-14.5); RED BLOOD CELL CT 3.77 /CUMM (4.70-6.10)
[2016-09-25 06:21] LABS: PT 14.1 SEC (9.4-12.5); PTT 46 SEC (25-37)
[2016-09-25 08:19] VITALS: BP 112/70
== END 2016-09-25 11:08 | disposition other institution (70) ==
LOC: ERH 05:20
PROVIDERS: Emergency Medicine
DX: K06.8 Other specified disorders of gingiva and edentulous alveolar ridge (principal)

== ENCOUNTER 2017-07-14 20:18 | Emergency (ER) | payer OTHER, MEDICARE ==
[~2017-07-14] VITALS: Ht 182.9 cm; Wt 129.3 kg
[~2017-07-14 20:18] MED LIST changes: +FERROUS SULFAT325 M3 PO; +IRON325 M3 PO
--- NOTE | 2017-07-14 21:12 | ED CARDIAC/CP/PALPITATIONS ---
History of Present Illness General Chief Complaint: Lower Extremity Problems Stated Complaint: "BOTH LEGS SWOLLEN,PAINFULL AND WARM TO TOUCH" Source: patient, family, old records Exam Limitations: no limitations Vital Signs & Intake/Output Vital Signs & Intake/Output Vital Signs Date Time Temp Pulse Resp B/P B/P Pulse O2 O2 Flow FiO2 Mean Ox Delivery Rate 07/15 0036 76 102/62 07/15 0027 105/69 07/14 2357 96.8 102 18 118/71 96 Room Air 07/14 2100 95 Room Air Room Air 07/15 2027 96.7 101 18 115/76 95 Room Air ED Intake and Output 07/15 0000 07/14 1200 Intake Total Output Total Balance Patient 285 lb Weight Weight Reported by Patient Measurement Method Allergies Coded Allergies: amoxicillin (From AUGMENTIN) (Severe, ANGIOEDEMA, RASH 05/16/15) clavulanic acid (From AUGMENTIN) (Severe, ANGIOEDEMA, RASH 05/16/15) Penicillins (SWELLING 05/16/15) adhesive (RASH - BANDAIDS 11/01/16) Reconcile Medications Albuterol Sulfate (Proventil Hfa) 6.7 GM HFA.AER.AD 2 PUF INH Q4 PRN BREATHING PROBLEMS (Reported) Apixaban (Eliquis) 5 MG TABLET 1 TAB PO BID BLOOD THINNER (Reported) Divalproex Sodium (Depakote) 125 MG TABLET.DR 1 TAB PO QPM MENTAL HEALTH ( Reported) Divalproex Sodium (Depakote ER) 500 MG TAB.ER.24H 1 TAB PO 4 TIMES/DAY MENTAL HEALTH (Reported) Divalproex Sodium (Depakote Sprinkle) 125 MG CAP.SPRINK 1 CAP PO QPM MENTAL HEALTH (Reported) Ferrous Sulfate 325 MG (65 MG IRON) TABLET 1 TAB PO BID SUPPLEMENT (Reported) Furosemide (Lasix) 20 MG TABLET 4 TAB PO DAILY leg swelling Haloperidol Decanoate 100 MG/1 ML VIAL 0.9 ML IM Q2W MENTAL HEALTH (Reported) Metoprolol Tartrate 50 MG TABLET 1 TAB PO BID HEART/BP (Reported) Trihexyphenidyl HCl 2 MG TABLET 1 TAB PO BID ANTISPASMODIC (Reported) Trihexyphenidyl HCl 2 MG TABLET 2 TAB PO QPM ANTISPASMODIC (Reported) Triage Note: PT FROM HOME C/O "CHEST TIGHTNESS" AND "SWOLLEN LEGS" X5 DAYS. PT WAS SEEN HERE IN ED LAST SATURDAY FOR CHEST TIGHTNESS AFTER MISSING A LASIX APPT. PT ON SATURDAY HAD +2 PITTING EDEMA. PT STATES "I FEEL THE SAME AND MY LEGS JUST BECAME MORE SWOLLEN" PT HAS BILATERAL LOWER EXT EDEMA +2. VSS. PT STATES "ALSO I HAVE SOB NOW" PT DENIES JAW PAIN, BACK PAIN, ARM NUMBNESS/TINGLING. PT IS AMBULATORY WITH CANE AND STATES "I HAVE SHORT AND SHALLOW BREATHS" PTS 02 ON RA 95%. Triage Nurses Notes Reviewed? yes Onset: Gradual Duration: week(s): Timing: recent history Quality/Severity: moderate HPI: 51yo male with hx of afib on eliquis, CHF, COPD, sleep apnea, schizoaffective disorder presents to ED complaining of worsening painful swelling of legs. HPI obtained from patient's uncle as patient is a poor historian. Patient has had recent worsening leg swelling and is complaining of increasing pain especially to left ankle. Patient goes to CHF clinic twice a week and receives doses of IV Lasix. He was last seen at CHF clinic on 07/11/17. Patient saw Dr. Martinez last week as he was here in the emergency department last week with chest pain. Patient had normal office visit, Dr. Martinez was planning on scheduling an echocardiogram. When asked about chest pain patient reports "bumps" on chest which can be painful. Patient's uncle states that he has not been complaining of chest pain at home. Patient does report intermittent dyspnea which has been chronic. Patient denies cough, hemoptysis, abdominal pain, fevers, fall. (Dang PRUETT,Tamie Duran) Past History Travel History Traveled to [place] past 21 day No Medical History Any Pertinent Medical History? 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 FX LEFT WRIST CHILD Psychiatric: schizo affective disorder, rule out bipolar features Endocrine: NONE Blood Disorders: anemia Cancer(s): NONE CONCRETE POINTER/Reproductive: NONE History of MRSA: Yes History of VRE: No History of CDIFF: No Tetanus Vaccine: 05/08/12 Surgical History Surgical History: non-contributory Psychosocial History Who do you live with Family Services at Home Nursing What is your primary language Irish Tobacco Use: Never used Family History Family History, If Any: MOTHER FH: diabetes mellitus Hx Contributory? No (Tamie Suarez) Review of Systems Review of Systems Constitutional: Reports: no symptoms. EENTM: Reports: no symptoms. Respiratory: Reports: see HPI. Cardiovascular: Reports: see HPI. GI: Reports: no symptoms. Genitourinary: Reports: no symptoms. Musculoskeletal: Reports: see HPI. Skin: Reports: no symptoms. Neurological/Psychological: Reports: no symptoms. Hematologic/Endocrine: Reports: no symptoms. Immunologic/Allergic: Reports: no symptoms. All Other Systems: Reviewed and Negative (Tamie Suarez) Physical Exam Physical Exam General Appearance: well developed/nourished, no apparent distress, alert, awake Head: atraumatic, normal appearance Eyes: Bilateral: normal appearance. Ears, Nose, Throat: hearing grossly normal Neck: normal inspection, supple, full range of motion Respiratory: no respiratory distress, diminished breath sounds bilaterally Cardiovascular: irregularly irregular Gastrointestinal: normal bowel sounds, soft, non-tender, no organomegaly Back: normal inspection, normal range of motion Extremities: 3+ pitting edema LLE>RLE Neurologic/Psych: awake, alert, oriented x 3 Skin: deep purple/red pigmentation to lower extremities bilaterally, no warmth Core Measures ACS in differential dx? Yes CVA/TIA Diagnosis No Sepsis Present: No Sepsis Focused Exam Completed? No (Tamie Suarez) Progress Differential Diagnosis: AMI, atrial fibrillation, CHF/pulm edema, pericarditis, pulmonary embolism, unstable angina, DVT, cellulitis, venous stasis Plan of Care: Orders Procedure Date/time Status MAGNESIUM 07/14 2148 Complete TROPONIN LEVEL 07/14 2105 Complete COMPREHENSIVE METABOLIC PANEL 07/14 2105 Complete CBC WITHOUT DIFFERENTIAL 07/14 2105 Complete B-TYPE NATRIURETIC PEP (BNP) 07/14 2105 Complete EKG 07/14 2028 Active Laboratory Tests 07/14/172148: Anion Gap 11, Estimated GFR > 60, BUN/Creatinine Ratio 28.8 H, Glucose 102 H, Calcium 9.5, Magnesium 2.1, Total Bilirubin 0.9, AST 35, ALT 30, Alkaline Phosphatase 55, Troponin I < 0.01, Evi-L-Pqeryjfsyzc Pept 1450 H, Total Protein 7.4, Albumin 4.3, Globulin 3.1, Albumin/Globulin Ratio 1.4, CBC w Diff MAN DIFF ORDERED, RBC 4.06 L, MCV 100.3 H, MCH 33.4 H, MCHC 33.3, RDW 13.7, MPV 7.9, Gran % 30.6 L, Lymphocytes % 52.8 H, Monocytes % 15.1 H, Eosinophils % 1.0, Basophils % 0.5, Absolute Granulocytes 2.6, Segmented Neutrophils 34 L, Absolute Lymphocytes 4.6 H, Lymphocytes 53 H, Monocytes 13 H, Absolute Monocytes 1.3 H, Absolute Eosinophils 0.1, Absolute Basophils 0, Platelet Estimate VERIFIED BY SMEAR, Normocytic RBCs VERIFIED, Normochromic RBCs VERIFIED , Fld Total RBCs Counted 100 07/14/172108: Magnesium Cancelled Patient's chest x-ray has not changed compared to previous imaging. EKG is stable, no acute changes. Troponins are negative. Patient's BNP is elevated however comparable to previous lab values. Patient discussed with Dr. Hernandes. Will medicate with 1 dose of IV Lasix and have patient follow up with CHF clinic tomorrow. Patient's uncle instructed to call crop consultant office to set up time for his echocardiogram and discuss his Lasix dose. Patient no acute distress, vital signs stable, he is nontoxic appearing. Patient sitting in stretcher comfortably while waiting for results. The patient and his uncle agreement with the plan of care. Dr. Hernandes agrees with this plan. Diagnostic Imaging: Viewed by Me: Radiology Read. Discussed w/RAD: Radiology Read. CXR Impression: PATIENT: JACK HALE PRESENT AGE: 51 PATIENT ACCOUNT NO: [id number] : 63 LOCATION: [facility] ORDERING PHYSICIAN: Tamie PRUETT SERVICE DATE: 07/14/17 EXAM TYPE: RAD - XRY-CHEST XRAY, TWO VIEWS EXAMINATION: XR CHEST CLINICAL INFORMATION: Dyspnea. COMPARISON: Chest x-ray 07/08/2017 TECHNIQUE: 2 views of the chest were obtained. FINDINGS: Asymmetric elevation of left diaphragm compared to right. There is linear atelectasis at left lung base. There is no acute change. No focal consolidation. No pulmonary vascular congestion. Compared to the prior chest x-ray there is no change. IMPRESSION: No acute abnormality of chest. DICTATED BY: Yousif Nuno MD DATE/TIME DICTATED:07/14/172221 SATELLITE COMMUNICATIONS ENGINEER:TELMA DATE/TIME TRANSCRIBED:07/14/172221 CONFIDENTIAL, DO NOT COPY WITHOUT APPROPRIATE AUTHORIZATION. <Electronically signed in Other Vendor System> SIGNED BY: Yousif Nuno MD 07/14/172226 Initial ED EKG: atrial fibrillation @88bpm, nonspecific ST changes Prior EKG: unchanged (07/08/17) (Tamie Suarez) Departure Departure Disposition: HOME OR SELF CARE Condition: Stable Clinical Impression Primary Impression: Pedal edema Secondary Impressions: Dyspnea Qualifiers: Dyspnea type: unspecified Qualified Code: R06.00 - Dyspnea, unspecified Referrals: Royce Vargas MD (PCP/Family) Additional Instructions: As discussed, follow-up with Dr. Martinez this week, follow-up regarding your scheduled echocardiogram. Follow up at CHF clinic tomorrow as well however inform them of your dose of IV Lasix here in the emergency department. With any worsening symptoms or other concerns please return to the emergency department. Please note that there might be incidental findings in your evaluation that are unrelated to the current emergency department visit. Please notify your primary care doctor about this emergency department visit in order to obtain and review all of the testing performed so that these incidental findings can be monitored as needed. If you had an x-ray performed, please understand that some fractures may not be seen on the initial set of x-rays. If your symptoms persist you might need a repeat set of x-rays to check for such a fracture. If you had a laceration evaluated, please understand that foreign bodies such as glass or wood may not be visible to the naked eye or on plain x-rays. If the wound becomes red, swollen, increasingly more painful or if there is any drainage from the wound, please have it reevaluated by a physician for the possibility of a retained foreign body. If you're unable to follow up as outlined in the discharge instructions please return to the emergency department. Thank you for choosing the [facility] Emergency Department for your care. It was a pleasure to serve you today. Departure Forms: Customer Survey General Discharge Information (Tamie Suarez) PA/MANAGER BUDGET Co-Sign Statement Statement: ED Attending supervision documentation- [] I saw and evaluated the patient. I have also reviewed all the pertinent lab results and diagnostic results. I agree with the findings and the plan of care as documented in the PA's/MANAGER BUDGET's documentation. [x] I have reviewed the ED Record and agree with the PA's/MANAGER BUDGET's documentation. [] Additions or exceptions (if any) to the PAs/MANAGER BUDGET's note and plan are summarized below: [] (Cecilio HAQ,Yunior Jordan) Critical Care Note Critical Care Note Critical Care Time: non-applicable (Dang PRUETT,Tamie Duran)
[2017-07-14 22:23] LABS: ABSOLUTE BASOPHIL COUNT 0 /CUMM (0.0-0.2); ABSOLUTE EOSINOPHIL COUNT 0.1 /CUMM (0.0-0.7); ABSOLUTE GRANULOCYTE CT 2.6 /CUMM (1.4-6.5); ABSOLUTE LYMPH COUNT 4.6 /CUMM (1.2-3.4); ABSOLUTE MONOCYTE COUNT 1.3 /CUMM (0.10-0.60); BASOPHIL % 0.5 % (0.0-2.0); GRANULOCYTE % 30.6 % (42.2-75.2); HEMATOCRIT 40.7 % (42-52); MEAN CORPUSCULAR HGB 33.4 PG (27.0-31.0); MEAN CORPUSCULAR HGB CONC 33.3 G/DL (33.0-37.0); MEAN CORPUSCULAR VOLUME 100.3 FL (80.0-94.0); MEAN PLATELET VOLUME 7.9 FL (7.4-10.4); PLATELET COUNT 139 /CUMM (130-400); RBC DISTRIBUTION WIDTH 13.7 % (11.5-14.5); RED BLOOD CELL CT 4.06 /CUMM (4.70-6.10); WHITE BLOOD CELL COUNT 8.6 /CUMM (4.8-10.8)
--- NOTE | 2017-07-14 22:27 | RADIOLOGY REPORT ---
EXAMINATION: XR CHEST CLINICAL INFORMATION: Dyspnea. COMPARISON: Chest x-ray 07/08/2017 TECHNIQUE: 2 views of the chest were obtained. FINDINGS: Asymmetric elevation of left diaphragm compared to right. There is linear atelectasis at left lung base. There is no acute change. No focal consolidation. No pulmonary vascular congestion. Compared to the prior chest x-ray there is no change. IMPRESSION: No acute abnormality of chest.
[2017-07-15 00:36] VITALS: BP 102/62
== END 2017-07-15 00:48 ==
LOC: ERH 20:18
PROVIDERS: Physician Assistant
DX: R60.0 Localized edema (principal); R06.00 Dyspnea, unspecified; I50.9 Heart failure, unspecified; I48.91 Unspecified atrial fibrillation; J44.9 Chronic obstructive pulmonary disease, unspecified
CPT/HCPCS: 71046; 93005; 93010; 96374; J1940

== ENCOUNTER 2017-09-03 12:44 | Emergency (ER) | payer OTHER, MEDICARE ==
[~2017-09-03] VITALS: Ht 180.3 cm; Wt 123.4 kg
[2017-09-03 13:22] LABS: ABSOLUTE BASOPHIL COUNT 0 /CUMM (0.0-0.2); ABSOLUTE EOSINOPHIL COUNT 0.1 /CUMM (0.0-0.7); ABSOLUTE GRANULOCYTE CT 2.6 /CUMM (1.4-6.5); ABSOLUTE LYMPH COUNT 3.8 /CUMM (1.2-3.4); ABSOLUTE MONOCYTE COUNT 1.3 /CUMM (0.10-0.60); BASOPHIL % 0.4 % (0.0-2.0); EOSINOPHIL % 0.7 % (0-5); GRANULOCYTE % 33.3 % (42.2-75.2); MEAN CORPUSCULAR HGB 34.2 PG (27.0-31.0); MEAN CORPUSCULAR HGB CONC 34.8 G/DL (33.0-37.0); MEAN CORPUSCULAR VOLUME 98.2 FL (80.0-94.0); MEAN PLATELET VOLUME 8.2 FL (7.4-10.4); PLATELET COUNT 143 /CUMM (130-400); RBC DISTRIBUTION WIDTH 13.7 % (11.5-14.5); RED BLOOD CELL CT 4.28 /CUMM (4.70-6.10); WHITE BLOOD CELL COUNT 7.8 /CUMM (4.8-10.8)
[2017-09-03 13:23] LABS: PT 13.6 SEC (9.4-12.5); PTT 51 SEC (25-37)
--- NOTE | 2017-09-03 15:16 | ED GI/GU/ABDOMINAL COMPLAINT ---
History of Present Illness General Chief Complaint: General Adult Stated Complaint: BLOOD IN STOOL Source: patient, family Exam Limitations: poor historian Vital Signs & Intake/Output Vital Signs & Intake/Output Vital Signs Date Time Temp Pulse Resp B/P B/P Pulse O2 O2 Flow FiO2 Mean Ox Delivery Rate 09/03 1722 85 18 121/92 98 Room Air 09/03 1450 97 Room Air Room Air 09/03 1257 98.4 75 19 129/83 92 Room Air Allergies Coded Allergies: amoxicillin (From AUGMENTIN) (Severe, ANGIOEDEMA, RASH 05/16/15) clavulanic acid (From AUGMENTIN) (Severe, ANGIOEDEMA, RASH 05/16/15) Penicillins (SWELLING 05/16/15) adhesive (RASH - BANDAIDS 11/01/16) Reconcile Medications Albuterol Sulfate (Proventil Hfa) 6.7 GM HFA.AER.AD 2 PUF INH Q4 PRN BREATHING PROBLEMS (Reported) Apixaban (Eliquis) 5 MG TABLET 1 TAB PO BID BLOOD THINNER (Reported) Divalproex Sodium (Depakote) 125 MG TABLET.DR 1 TAB PO QPM MENTAL HEALTH ( Reported) Divalproex Sodium (Depakote ER) 500 MG TAB.ER.24H 1 TAB PO 4 TIMES/DAY MENTAL HEALTH (Reported) Divalproex Sodium (Depakote Sprinkle) 125 MG CAP.SPRINK 1 CAP PO QPM MENTAL HEALTH (Reported) Ferrous Sulfate 325 MG (65 MG IRON) TABLET 1 TAB PO BID SUPPLEMENT (Reported) Furosemide (Lasix) 20 MG TABLET 4 TAB PO DAILY leg swelling Haloperidol Decanoate 100 MG/1 ML VIAL 0.9 ML IM Q2W MENTAL HEALTH (Reported) Metoprolol Tartrate 50 MG TABLET 1 TAB PO BID HEART/BP (Reported) Trihexyphenidyl HCl 2 MG TABLET 1 TAB PO BID ANTISPASMODIC (Reported) Trihexyphenidyl HCl 2 MG TABLET 2 TAB PO QPM ANTISPASMODIC (Reported) Triage Note: PT STATES HE HAS HAD BLOOD IN HIS STOOL FOR 1.5 WEEKS. PT CALLED PCP AND WAS TOLD TO COME TO ED. PT STATES HE IS FEELING WEAK. Triage Nurses Notes Reviewed? yes HPI: Patient presents for evaluation of bleeding in his bowels. Patient states for the past 1-1/2 weeks he has had reddish blood in his stools along with its usual black color secondary to iron supplementation. He spoke to his primary care doctor today who instructed him to go to the emergency department for evaluation. Patient refers a lower abdominal pain without vomiting or diarrhea. Patient's father states that he has had intermittent episodes of red blood per rectum in the past thought to be due to passing hard stools. (Gera Kelly MD) Past History Travel History Traveled to [place] past 21 day No Medical History Any Pertinent Medical History? 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 FX LEFT WRIST CHILD Psychiatric: schizo affective disorder, rule out bipolar features Endocrine: NONE Blood Disorders: anemia Cancer(s): NONE STATISTICS TEACHER/Reproductive: NONE History of MRSA: Yes History of VRE: No History of CDIFF: No Tetanus Vaccine: 05/08/12 Surgical History Surgical History: non-contributory Psychosocial History Who do you live with Family Services at Home Nursing What is your primary language Belizean Tobacco Use: Quit >30 days ago ETOH Use: denies use Illicit Drug Use: denies illicit drug use Family History Family History, If Any: MOTHER FH: diabetes mellitus Hx Contributory? No (Gera Kelly MD) Review of Systems Review of Systems Constitutional: Reports: no symptoms. EENTM: Reports: no symptoms. Respiratory: Reports: no symptoms. Cardiovascular: Reports: no symptoms. GI: Reports: see HPI. Genitourinary: Reports: no symptoms. Musculoskeletal: Reports: no symptoms. Skin: Reports: no symptoms. Neurological/Psychological: Reports: no symptoms. Hematologic/Endocrine: Reports: no symptoms. Immunologic/Allergic: Reports: no symptoms. All Other Systems: Reviewed and Negative (Gera Kelly MD) Physical Exam Physical Exam Gastrointestinal: SEE BELOW Comments: Gen.: Well-nourished, well-developed, no acute respiratory distress. Head: Normocephalic, atraumatic. Eyes: Normal inspection bilaterally Ears: Normal inspection bilaterally Nose: Normal inspection Throat/mouth : Moist mucosa Neck: Supple, full range of motion, no goiter Heart: Regular rate and rhythm, no murmurs rubs or gallops Lungs: Clear to auscultation bilaterally with normal air entry Chest: Nontender Back: Normal range of motion Abdomen: Soft, left mid quadrant abdominal tenderness with brief voluntary guarding but no rebound, nondistended, normal bowel sounds Rectal: Reddish brown stool in the vault, heme positive, no palpable masses Extremities: Normal range of motion grossly, equal radial pulses, no cyanosis clubbing or edema Neurologic: Cranial nerves grossly intact, speech is clear Skin: warm and dry Psychiatric: Calm, cooperative, no apparent delusions or hallucinations Core Measures ACS in differential dx? No Sepsis Present: No Sepsis Focused Exam Completed? No (Leticia HAQ,Gera Stone) Progress Differential Diagnosis: DIVERTICULAR BLEED, COLITIS, INFLAMMATORY BOWEL DISEASE, FOCAL OBSTRUCTION Plan of Care: Orders Procedure Date/time Status PARTIAL THROMBOPLASTIN TIME 09/03 1255 Complete PROTHROMBIN TIME 09/03 1255 Complete COMPREHENSIVE METABOLIC PANEL 09/03 1255 Complete CBC WITHOUT DIFFERENTIAL 09/03 1255 Complete TYPE & SCREEN (NOT X-MATCH) 09/03 1255 Complete Laboratory Tests 09/03/17 1303: Anion Gap 12, Estimated GFR > 60, BUN/Creatinine Ratio 25.0, Glucose 118 H, Calcium 9.5, Total Bilirubin 1.0, AST 45, ALT 40, Alkaline Phosphatase 44, Total Protein 7.4, Albumin 4.0, Globulin 3.4, Albumin/Globulin Ratio 1.2, PT 13.6 H, INR 1.24 H, APTT 51 H, CBC w Diff MAN DIFF ORDERED, RBC 4.28 L, MCV 98.2 H, MCH 34.2 H, MCHC 34.8, RDW 13.7, MPV 8.2, Gran % 33.3 L, Lymphocytes % 48.6, Monocytes % 17.0 H, Eosinophils % 0.7, Basophils % 0.4, Absolute Granulocytes 2.6, Absolute Lymphocytes 3.8 H, Absolute Monocytes 1.3 H, Absolute Eosinophils 0.1, Absolute Basophils 0, Platelet Estimate VERIFIED BY SMEAR, Normocytic RBCs VERIFIED, Normochromic RBCs VERIFIED Initial ED EKG: none Comments: 09/03/2017 7:10:59 PM patient signed out to Dr. Jimneez at shift change advisor. (Leticia HAQ,Gera Stone) Diagnostic Imaging: Viewed by Me: CT Scan. Discussed w/RAD: CT Scan. Radiology Impression: PATIENT: JACK HALE PRESENT AGE: 51 PATIENT ACCOUNT NO: [id number] : 63 LOCATION: [facility] ORDERING PHYSICIAN: Gera Kelly MD SERVICE DATE: 09/03/17 EXAM TYPE: CAT - CT ABD & PELVIS W IV CONTRAST EXAMINATION: CT ABDOMEN AND PELVIS WITH CONTRAST CLINICAL INFORMATION: Intermittent right red blood per rectum. Question diverticular bleed or rectal mass. Hernia. COMPARISON: No relevant prior imaging. TECHNIQUE: Multidetector volumetric imaging was performed of the abdomen and pelvis following IV administration of 95 mL of Optiray 320 intravenous contrast. Sagittal and coronal reformatted images were obtained on the technologist's workstation. DLP: 1042.78 mGy-cm FINDINGS: LUNG BASES: There is asymmetric elevation of the left hemidiaphragm with associated left basilar subsegmental atelectasis. No pleural or pericardial effusion. LIVER, GALLBLADDER , AND BILIARY TREE: Liver attenuation is grossly homogeneous with no evidence of a discrete hepatic parenchymal mass. There is a small focus of eccentric calcification located along the right lateral surface of the gallbladder. Otherwise no abnormal pericholecystic inflammatory changes and no evidence of cholelithiasis. Grossly no intrahepatic or extrahepatic biliary ductal dilatation. PANCREAS: Unremarkable. SPLEEN: Unremarkable. ADRENAL GLANDS: Unremarkable. KIDNEYS AND URETERS: Kidneys demonstrate symmetric corticomedullary enhancement characteristics. There is no abnormal perinephric inflammation or collection. No hydronephrosis. No abnormal mass or calcifications visualized along the expected course of the right or left ureter. BLADDER: Unremarkable. GASTROINTESTINAL TRACT: Stomach and small bowel is unremarkable. There is no evidence of obstruction. No free intraperitoneal air or fluid. Appendix is normal. Of note there is intramural fat visualized within the rectum and rectosigmoid junction as well as some intramural fat also visualized within the cecum. These findings may represent manifestations of chronic inflammatory bowel disease. A few diverticula are visualized within the descending and sigmoid. ABDOMINAL WALL: There is a fat-containing left inguinal hernia. Abdominal wall is otherwise intact. LYMPH NODES: No pathologically enlarged mesenteric or retroperitoneal lymph nodes. VASCULAR: The abdominal aorta and inferior vena cava are unremarkable. PELVIC VISCERA: Unremarkable. OSSEOUS STRUCTURES: There is no acute osseous finding. A few chronic appearing Schmorl's nodes are visualized within the adjoining L3 and L4 endplates. No acute fracture. No lytic or blastic osseous lesions. IMPRESSION: There are a few diverticula are visualized within the descending colon and sigmoid. Intramural fat is visualized within the rectum and rectosigmoid junction which likely indicate a history of chronic inflammatory bowel disease. Grossly no evidence of a discrete enhancing soft tissue mass however this examination has not been specifically tailored to evaluate the small and large bowel due to lack of preparation and absence of rectal contrast. Incidental findings include asymmetric elevation of the left hemidiaphragm with associated left basilar subsegmental atelectasis and there is a small nonspecific calcification located along the right lateral surface of the gallbladder with no gross evidence of an adjoining soft tissue mass. DICTATED BY: Riley Solorzano MD DATE/TIME DICTATED:09/03/171912 AUTOMOTIVE WELDER:TELMA DATE/TIME TRANSCRIBED:1912 CONFIDENTIAL, DO NOT COPY WITHOUT APPROPRIATE AUTHORIZATION. < Electronically signed in Other Vendor System> SIGNED BY: Riley Solorzano MD 09/03/171929 Comments: Patient and his father have been updated on labs and CAT scan results. Questions were answered. (Tello Jimenez MD) Departure Departure Condition: Stable Clinical Impression Primary Impression: Bright red rectal bleeding Departure Forms: Customer Survey General Discharge Information (Leticia HAQ,Gera Stone) Departure Disposition: HOME OR SELF CARE Referrals: Royce Vargas MD (PCP/Family) Ed Malin MD Additional Instructions[facility] Follow up with Dr. Malin from gastroenterology. Return if symptoms worsen or for any concerns. (Tello Jimenez MD)
--- NOTE | 2017-09-03 19:30 | CT SCAN REPORT ---
EXAMINATION: CT ABDOMEN AND PELVIS WITH CONTRAST CLINICAL INFORMATION: Intermittent right red blood per rectum. Question diverticular bleed or rectal mass. Hernia. COMPARISON: No relevant prior imaging. TECHNIQUE: Multidetector volumetric imaging was performed of the abdomen and pelvis following IV administration of 95 mL of Optiray 320 intravenous contrast. Sagittal and coronal reformatted images were obtained on the technologist's workstation. DLP: 1042.78 mGy-cm FINDINGS: LUNG BASES: There is asymmetric elevation of the left hemidiaphragm with associated left basilar subsegmental atelectasis. No pleural or pericardial effusion. LIVER, GALLBLADDER, AND BILIARY TREE: Liver attenuation is grossly homogeneous with no evidence of a discrete hepatic parenchymal mass. There is a small focus of eccentric calcification located along the right lateral surface of the gallbladder. Otherwise no abnormal pericholecystic inflammatory changes and no evidence of cholelithiasis. Grossly no intrahepatic or extrahepatic biliary ductal dilatation. PANCREAS: Unremarkable. SPLEEN: Unremarkable. ADRENAL GLANDS: Unremarkable. KIDNEYS AND URETERS: Kidneys demonstrate symmetric corticomedullary enhancement characteristics. There is no abnormal perinephric inflammation or collection. No hydronephrosis. No abnormal mass or calcifications visualized along the expected course of the right or left ureter. BLADDER: Unremarkable. GASTROINTESTINAL TRACT: Stomach and small bowel is unremarkable. There is no evidence of obstruction. No free intraperitoneal air or fluid. Appendix is normal. Of note there is intramural fat visualized within the rectum and rectosigmoid junction as well as some intramural fat also visualized within the cecum. These findings may represent manifestations of chronic inflammatory bowel disease. A few diverticula are visualized within the descending and sigmoid. ABDOMINAL WALL: There is a fat-containing left inguinal hernia. Abdominal wall is otherwise intact. LYMPH NODES: No pathologically enlarged mesenteric or retroperitoneal lymph nodes. VASCULAR: The abdominal aorta and inferior vena cava are unremarkable. PELVIC VISCERA: Unremarkable. OSSEOUS STRUCTURES: There is no acute osseous finding. A few chronic appearing Schmorl's nodes are visualized within the adjoining L3 and L4 endplates. No acute fracture. No lytic or blastic osseous lesions. IMPRESSION: There are a few diverticula are visualized within the descending colon and sigmoid. Intramural fat is visualized within the rectum and rectosigmoid junction which likely indicate a history of chronic inflammatory bowel disease. Grossly no evidence of a discrete enhancing soft tissue mass however this examination has not been specifically tailored to evaluate the small and large bowel due to lack of preparation and absence of rectal contrast. Incidental findings include asymmetric elevation of the left hemidiaphragm with associated left basilar subsegmental atelectasis and there is a small nonspecific calcification located along the right lateral surface of the gallbladder with no gross evidence of an adjoining soft tissue mass.
[2017-09-03 19:54] VITALS: BP 118/86
== END 2017-09-03 19:56 ==
LOC: ERH 12:44
PROVIDERS: Physician Assistant Medical
DX: K62.5 Hemorrhage of anus and rectum (principal)
CPT/HCPCS: 74177; J1885; J2405

== ENCOUNTER 2017-09-21 08:59 | Emergency (ER) | payer OTHER, MEDICARE ==
[~2017-09-21] VITALS: Ht 180.3 cm; Wt 125.2 kg
--- NOTE | 2017-09-21 10:45 | ED UPPER/LOWER EXTREMITY COMPL ---
History of Present Illness General Chief Complaint: Lower Extremity Injury Stated Complaint: LFT LEG INJURY Source: patient, family Exam Limitations: clinical condition (bipolar/schizophrenia) Vital Signs & Intake/Output Vital Signs & Intake/Output Vital Signs Date Time Temp Pulse Resp B/P B/P Pulse O2 O2 Flow FiO2 Mean Ox Delivery Rate 09/21 1226 98.0 86 18 122/74 97 Room Air 09/21 1222 97 Room Air 09/21 0907 97.0 104 20 123/76 96 Room Air Allergies Coded Allergies: amoxicillin (From AUGMENTIN) (Severe, ANGIOEDEMA, RASH 05/16/15) clavulanic acid (From AUGMENTIN) (Severe, ANGIOEDEMA, RASH 05/16/15) Penicillins (SWELLING 05/16/15) adhesive (RASH - BANDAIDS 11/01/16) Reconcile Medications Albuterol Sulfate (Proventil Hfa) 6.7 GM HFA.AER.AD 2 PUF INH Q4 PRN BREATHING PROBLEMS (Reported) Apixaban (Eliquis) 5 MG TABLET 1 TAB PO BID BLOOD THINNER (Reported) Divalproex Sodium (Depakote) 125 MG TABLET.DR 1 TAB PO QPM MENTAL HEALTH ( Reported) Divalproex Sodium (Depakote ER) 500 MG TAB.ER.24H 1 TAB PO 4 TIMES/DAY MENTAL HEALTH (Reported) Divalproex Sodium (Depakote Sprinkle) 125 MG CAP.SPRINK 1 CAP PO QPM MENTAL HEALTH (Reported) Ferrous Sulfate 325 MG (65 MG IRON) TABLET 1 TAB PO BID SUPPLEMENT (Reported) Furosemide (Lasix) 20 MG TABLET 4 TAB PO DAILY leg swelling Haloperidol Decanoate 100 MG/1 ML VIAL 0.9 ML IM Q2W MENTAL HEALTH (Reported) Metoprolol Tartrate 50 MG TABLET 1 TAB PO BID HEART/BP (Reported) Trihexyphenidyl HCl 2 MG TABLET 1 TAB PO BID ANTISPASMODIC (Reported) Trihexyphenidyl HCl 2 MG TABLET 2 TAB PO QPM ANTISPASMODIC (Reported) Triage Note: PT STATES "I TRIPPED OVER AN AREA RUG AND HE FELL INTO A SCRATCHING POST ON THE ." STATES PAIN FROM LEFT SHAIKH TO LEFT THIGH. Triage Nurses Notes Reviewed? yes Onset: Last week Duration: constant, continues in ED Timing: remote history Severity: moderate Severity Numbers: 10 Pain/Injury Location: Left: Leg. Method of Injury: direct blow HPI: 51-year-old male with history of bipolar/schizophrenia and Afib on Eliquis presents to the emergency department reporting left leg pain/swelling. He does have a history of venous disorders for which he sees Dr. Holland and has had venous ablations in the past. He sees Dr. Vargas as his PCP who has him on daily lasix, and he also sees the infusion center twice weekly for lasix infusions d/t lower extremity swelling. He states that on SatSeptember 18 2017 (3 days ago), he had tripped on a rug and his left lower leg hit the cat scratching post which caused significant pain. He now reports pain on the front of his left lower leg. He denies head injury or loss of consciousness. (Susan Guzman) Past History Travel History Traveled to [place] past 21 day No Medical History Any Pertinent Medical History? 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 No (Susan Guzman) Review of Systems Review of Systems Constitutional: Reports: no symptoms. EENTM: Reports: no symptoms. Respiratory: Reports: no symptoms. Cardiovascular: Reports: no symptoms. Gastrointestinal/Abdominal: Reports: no symptoms. Genitourinary: Reports: no symptoms. Musculoskeletal: Reports: see HPI. Skin: Reports: see HPI. Neurological/Psychological: Reports: see HPI. Hematologic/Endocrine: Reports: no symptoms. Immunological: Reports: no symptoms. All Other Systems: Reviewed and Negative (Susan Guzman) Physical Exam Physical Exam General Appearance: well developed/nourished, no apparent distress, alert, awake , comfortable, sitting comfortably in wheelchair Head: atraumatic, normal appearance Eyes: Bilateral: normal appearance. Ears, Nose, Throat: hearing grossly normal Neck: normal inspection, full range of motion Cardiovascular/Respiratory: normal breath sounds, no respiratory distress, irregularly irregular Peripheral Pulses: 1+ dorsalis pedis (R), 1+ dorsalis pedis (L) Back: normal inspection Shoulder Left: normal range of motion, normal inspection Shoulder Right: normal range of motion, normal inspection Leg Left: swelling, tenderness, brownish coloration to skin, edema, large circular area on anterior left leg where prior injury with scarring occurred, no breaks in skin, no weeping of skin Leg Right: swelling, brownish discoloration Neurologic/Tendon: no evidence tendon injury, altered lower extremity functions due to chronic lower extremity edema and venous insufficiency Skin: intact, dry Comments: Cool lower extremities bilaterally, apparently baseline, also diminished dorsalis pedis pulses bilaterally Diagram Legs Front/Back 1) (Joe PRUETT,Susan) Progress Differential Diagnosis: contusion, DVT, vascular insufficiency Plan of Care: Orders Procedure Date/time Status US-DUPLEX VENOUS EXTREM UNI 09/21 1122 Active 51 year old male with history of afib, schizoprenia/bipolar, venous insufficiency with trauma to left lower extremity 3 days ago causing swelling and pain. -Duplex u/s ordered - unremarkable -Patient doing well, not complaining of any pain in the ED -Patient took lasix pill today. Continue taking daily. Avoid salty foods. He will follow up Saturday with PCP Dr. Vargas, Dr. Martinez, and Dr. Holland. Also continue with lasix infusions biweekly at infusion center. Patient is advised that if he develops any new or worsening symptoms he will retun to the ED. patient was stable upon discharge. Diagnostic Imaging: Viewed by Me: Ultrasound. Discussed w/RAD: Ultrasound. Radiology Impression: PATIENT: JACK HALE PRESENT AGE: 51 PATIENT ACCOUNT NO: [id number] : 63 LOCATION: [facility] ORDERING PHYSICIAN: Susan PRUETT SERVICE DATE: 09/21/17-1122 EXAM TYPE: US - US- DUPLEX VENOUS EXTREM UNI EXAMINATION: US TRIPLEX LOWER EXTREMITY, LEFT CLINICAL INFORMATION: Left leg pain COMPARISON: None TECHNIQUE: Color-flow triplex imaging with spectral analysis and compression Doppler were performed on the lower extremity. FINDINGS: Respiratory variation, normal compression and augmented flow are noted throughout the lower extremity. The visualized common femoral vein, superficial femoral vein, profunda femoral vein, popliteal vein and midcalf peroneal and posterior tibial venous segments show no evidence of deep venous thrombosis. There is no Dubose's cyst. Lymph nodes are noted in the left groin. IMPRESSION: No evidence of deep venous thrombosis involving the lower extremity. DICTATED BY: Mao Parmar MD DATE/TIME DICTATED:09/21/171232 FINANCIAL AIDS OFFICER:TELMA DATE/TIME TRANSCRIBED:09/21/171232 CONFIDENTIAL, DO NOT COPY WITHOUT APPROPRIATE AUTHORIZATION. <Electronically signed in Other Vendor System> SIGNED BY: Mao Parmar MD 09/21/17 6191 (Susan Guzman) Departure Departure Disposition: HOME OR SELF CARE Condition: Stable Clinical Impression Primary Impression: Venous insufficiency Secondary Impressions: Leg pain, anterior Qualifiers: Laterality: left Qualified Code: M79.605 - Pain in left leg Referrals: Royce Vargas MD (PCP/Family) Additional Instructions: Continue taking Lasix pill as prescribed by primary care. Take tylenol/ibuprofen as needed for pain. Follow-up on Saturday with your PCP Dr. Vargas, Dr. Martinez, and Dr. Holland. Continue seeing infusion center biweekly for Lasix. Avoid any salty foods. Return to the emergency department with any new or worsening symptoms. Departure Forms: Customer Survey General Discharge Information (Susan Guzman) PA/TANK CALIBRATOR Co-Sign Statement Statement: ED Attending supervision documentation- I saw and evaluated the patient. I have also reviewed all the pertinent lab results and diagnostic results. I agree with the findings and the plan of care as documented in the PA's/TANK CALIBRATOR's documentation. x I have reviewed the ED Record and agree with the PA's/TANK CALIBRATOR's documentation. [] Additions or exceptions (if any) to the PAs/TANK CALIBRATOR's note and plan are summarized below: [] (Parker HAQ,Avelino)
--- NOTE | 2017-09-21 12:47 | ULTRASOUND REPORT ---
EXAMINATION: US TRIPLEX LOWER EXTREMITY, LEFT CLINICAL INFORMATION: Left leg pain COMPARISON: None TECHNIQUE: Color-flow triplex imaging with spectral analysis and compression Doppler were performed on the lower extremity. FINDINGS: Respiratory variation, normal compression and augmented flow are noted throughout the lower extremity. The visualized common femoral vein, superficial femoral vein, profunda femoral vein, popliteal vein and midcalf peroneal and posterior tibial venous segments show no evidence of deep venous thrombosis. There is no Dubose's cyst. Lymph nodes are noted in the left groin. IMPRESSION: No evidence of deep venous thrombosis involving the lower extremity.
[2017-09-21 14:24] VITALS: BP 120/70
== END 2017-09-21 14:25 ==
LOC: ERH 08:59
DX: I87.2 Venous insufficiency (chronic) (peripheral) (principal); M79.605 Pain in left leg; M79.89 Other specified soft tissue disorders

== ENCOUNTER 2017-11-12 11:46 | Emergency (ER) | payer OTHER, MEDICARE ==
[~2017-11-12] VITALS: Ht 180.3 cm; Wt 90.7 kg
--- NOTE | 2017-11-12 12:01 | ED GENERAL ADULT ---
History of Present Illness General Chief Complaint: General Adult Stated Complaint: WEAKNESS Source: patient Exam Limitations: no limitations Vital Signs & Intake/Output Vital Signs & Intake/Output Vital Signs Date Time Temp Pulse Resp B/P B/P Pulse O2 O2 Flow FiO2 Mean Ox Delivery Rate 11/12 1422 74 110/62 11/12 1422 110/62 11/12 1151 99.2 93 18 116/79 94 Room Air Allergies Coded Allergies: amoxicillin (From AUGMENTIN) (Severe, ANGIOEDEMA, RASH 05/16/15) clavulanic acid (From AUGMENTIN) (Severe, ANGIOEDEMA, RASH 05/16/15) Penicillins (SWELLING 05/16/15) adhesive (RASH - BANDAIDS 11/01/16) Reconcile Medications Albuterol Sulfate (Proventil Hfa) 6.7 GM HFA.AER.AD 2 PUF INH Q4 PRN BREATHING PROBLEMS (Reported) Apixaban (Eliquis) 5 MG TABLET 1 TAB PO BID BLOOD THINNER (Reported) Divalproex Sodium (Depakote) 125 MG TABLET.DR 1 TAB PO QPM MENTAL HEALTH ( Reported) Divalproex Sodium (Depakote ER) 500 MG TAB.ER.24H 1 TAB PO 4 TIMES/DAY MENTAL HEALTH (Reported) Divalproex Sodium (Depakote Sprinkle) 125 MG CAP.SPRINK 1 CAP PO QPM MENTAL HEALTH (Reported) Ferrous Sulfate 325 MG (65 MG IRON) TABLET 1 TAB PO BID SUPPLEMENT (Reported) Furosemide (Lasix) 20 MG TABLET 4 TAB PO DAILY leg swelling Haloperidol Decanoate 100 MG/1 ML VIAL 0.9 ML IM Q2W MENTAL HEALTH (Reported) Metoprolol Tartrate 50 MG TABLET 1 TAB PO BID HEART/BP (Reported) Trihexyphenidyl HCl 2 MG TABLET 1 TAB PO BID ANTISPASMODIC (Reported) Trihexyphenidyl HCl 2 MG TABLET 2 TAB PO QPM ANTISPASMODIC (Reported) Triage Note: RECEIVED 52 YO MALE PRESENTS TO THE ED WITH C/O FEELING WEAK, STARTED THIS AM. PT IS CURRENTLY ON ELIQUIS FOR AFIB, AND HAD A TOOTH REMOVED YESTERDAY. DID NOT TELL DENTIST HE IS ON BLOOD THINNERS. PT REPORTS HE LOST ALOT OF BLOOD SINCE YESTERDAY. Triage Nurses Notes Reviewed? yes Onset: Gradual Duration: hour(s): Timing: constant HPI: 52 y/o male with h/o a-fib (on eliquis), chronic bilateral LE edema, asthma, COPD, GERD, chronic hand tremors, anemia, schizoaffective disorder presenting with light headedness since this morning. Pt reports have left upper dental extraction yesterday. Forgot to tell his dentist that he is on eliquis. Reports persistent bleeding from the surgical site since, and now with light headedness as of this morning. Denies CP, SOB, dizziness, syncope. No other souces of bleeding such as melena or hematochezia. Denies fevers or recent infectious symptoms. Patient was seen and evaluated by his dentist this morning and reported a normal exam with no active bleeding, but recommended that he be seen in the emergency department for H&H check. (Meredith Adhikari) Past History Travel History Traveled to [place] past 21 day No Medical History Any Pertinent Medical History? 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 No (Meredith Adhikari) Review of Systems Review of Systems Constitutional: Reports: see HPI. EENTM: Reports: see HPI. Respiratory: Reports: no symptoms. Cardiovascular: Reports: no symptoms. GI: Reports: no symptoms. Genitourinary: Reports: no symptoms. Musculoskeletal: Reports: no symptoms. Skin: Reports: no symptoms. Neurological/Psychological: Reports: see HPI. Hematologic/Endocrine: Reports: no symptoms. Immunologic/Allergic: Reports: no symptoms. All Other Systems: Reviewed and Negative (Meredith Adhikari) Physical Exam Physical Exam General Appearance: well developed/nourished, no apparent distress, alert, awake , comfortable Comments: Gen.: Well-nourished, well-developed, no acute distress. Head: Normocephalic, atraumatic. Eyes: Normal inspection bilaterally Ears: Normal inspection bilaterally Nose: Normal inspection Neck: Normal inspection Oral cavity: Extraction of left upper tooth with dried blood around the surgical site, no active bleeding Lungs: clear to auscultation bilaterally, normnal breath sounds Heart: regular rate and rhythm Abdomen: soft and non-tender Extremities: Bilateral lower extremity edema Neurologic: alert and oriented x3, cranial nerves II through XII intact, sensation intact, motor strength 5 out of 5, cerebellar function intact, reflexes 2+, able to ambulate with a steady gait Skin: warm and dry Psychiatric: Normal mood and affect, no apparent delusions or hallucinations, behavior appropriate Core Measures ACS in differential dx? No CVA/TIA Diagnosis: No Sepsis Present: No Sepsis Focused Exam Completed? No (Armando PRUETT,Meredith) Progress Differential Diagnoses I considered the following diagnoses in my evaluation of the patient: [Postop bleeding versus anemia versus postop pain versus vasovagal response, low concern for infection or sepsis, low concern for CVA] Plan of Care: Orders Procedure Date/time Status MISTAKE 11/12 1350 Active TROPONIN LEVEL 11/12 1157 Complete MAGNESIUM 11/12 1157 Complete COMPREHENSIVE METABOLIC PANEL 11/12 1157 Complete CBC WITHOUT DIFFERENTIAL 11/12 1157 Complete EKG 11/12 1157 Active Current Medications Sig/Fatou Start time Last Medication Dose Stop Time Status Admin Ketorolac 15 MG ONCE ONE 11/12 1400 CAN Tromethamine 11/12 1401 (Toradol) Laboratory Tests 11/12/17 1213: Anion Gap 7, Estimated GFR > 60, BUN/Creatinine Ratio 23.8, Glucose 99, Calcium 9.2, Magnesium 1.9, Total Bilirubin 1.2, AST 30, ALT 26, Alkaline Phosphatase 33 , Troponin I < 0.01, Total Protein 7.0, Albumin 4.1, Globulin 2.9, Albumin/ Globulin Ratio 1.4, CBC w Diff MAN DIFF ORDERED, RBC 4.01 L, MCV 100.0 H, MCH 34.5 H, MCHC 34.5, RDW 14.2, MPV 7.9, Gran % 60.7, Lymphocytes % 23.1, Monocytes % 15.8 H, Eosinophils % 0.2, Basophils % 0.2, Absolute Granulocytes 5.5, Absolute Lymphocytes 2.1, Absolute Monocytes 1.4 H, Absolute Eosinophils 0 , Absolute Basophils 0, Platelet Estimate DECREASED, Anisocytosis 1+ EKG nonischemic, troponin negative H&H 13.8/40.1, labs also show thrombocytopenia of 114, patient's platelets have intermittently been in the one teens in the past, patient reports that he receives weekly infusions for a vascular issue, he is unsure what the infusion is but states that a side effect is that causes his platelets to be low, states this is a known issue and that his platelets will fluctuate from normal range to low 100s. There is no active bleeding on exam. He feels better after receiving IV fluids. Orthostatics unremarkable. He is cleared for discharge home and given strict return precautions. We will follow-up with his dentist and his PMD for reevaluation. Initial ED EKG: AFIB (Meredith Adhikari) Departure Departure Disposition: HOME OR SELF CARE Condition: Stable Clinical Impression Primary Impression: Light headedness Referrals: Royce Vargas MD (PCP/Family) Additional Instructions: Maintain adequate fluid intake. Continue taking her Eliquis as prescribed. Continue wound care to your surgical site as instructed by her dentist. Follow- up with your dentist and your primary care provider for reevaluation. Return to the emergency department for any new or worsening symptoms. Departure Forms: Customer Survey General Discharge Information (Meredith Adhikari) PA/REDYE HAND Co-Sign Statement Statement: ED Attending supervision documentation- [] I saw and evaluated the patient. I have also reviewed all the pertinent lab results and diagnostic results. I agree with the findings and the plan of care as documented in the PA's/REDYE HAND's documentation. [X] I have reviewed the ED Record and agree with the PA's/REDYE HAND's documentation. [] Additions or exceptions (if any) to the PAs/REDYE HAND's note and plan are summarized below: [] (Gera Bettencourt DO) Critical Care Note Critical Care Note Critical Care Time: non-applicable (Meredith Adhikari)
[2017-11-12 12:22] LABS: ABSOLUTE BASOPHIL COUNT 0 /CUMM (0.0-0.2); ABSOLUTE EOSINOPHIL COUNT 0 /CUMM (0.0-0.7); ABSOLUTE GRANULOCYTE CT 5.5 /CUMM (1.4-6.5); ABSOLUTE LYMPH COUNT 2.1 /CUMM (1.2-3.4); ABSOLUTE MONOCYTE COUNT 1.4 /CUMM (0.10-0.60); BASOPHIL % 0.2 % (0.0-2.0); EOSINOPHIL % 0.2 % (0-5); HEMATOCRIT 40.1 % (42-52); MEAN CORPUSCULAR HGB 34.5 PG (27.0-31.0); MEAN CORPUSCULAR HGB CONC 34.5 G/DL (33.0-37.0); MEAN PLATELET VOLUME 7.9 FL (7.4-10.4); PLATELET COUNT 114 /CUMM (130-400); RBC DISTRIBUTION WIDTH 14.2 % (11.5-14.5); RED BLOOD CELL CT 4.01 /CUMM (4.70-6.10)
[2017-11-12 12:26] LABS: GRANULOCYTE % 60.7 % (42.2-75.2)
[2017-11-12 14:22] VITALS: BP 110/62
== END 2017-11-12 14:34 ==
LOC: ERH 11:46
PROVIDERS: Physician Assistant
DX: R42 Dizziness and giddiness (principal); R25.1 Tremor, unspecified; I48.91 Unspecified atrial fibrillation; J44.9 Chronic obstructive pulmonary disease, unspecified; D64.9 Anemia, unspecified; R12 Heartburn; Z79.01 Long term (current) use of anticoagulants
CPT/HCPCS: 93005; 93010

== ENCOUNTER 2017-11-13 19:29 | Emergency (ER) | payer OTHER, MEDICARE ==
[2017-11-13 20:22] LABS: ABSOLUTE BASOPHIL COUNT 0 /CUMM (0.0-0.2); ABSOLUTE EOSINOPHIL COUNT 0 /CUMM (0.0-0.7); ABSOLUTE GRANULOCYTE CT 2.4 /CUMM (1.4-6.5); ABSOLUTE LYMPH COUNT 3.8 /CUMM (1.2-3.4); ABSOLUTE MONOCYTE COUNT 1.1 /CUMM (0.10-0.60); BASOPHIL % 0.4 % (0.0-2.0); EOSINOPHIL % 0.6 % (0-5); GRANULOCYTE % 32.1 % (42.2-75.2); HEMATOCRIT 36.1 % (42-52); MEAN CORPUSCULAR HGB 34.3 PG (27.0-31.0); MEAN CORPUSCULAR HGB CONC 34.1 G/DL (33.0-37.0); MEAN CORPUSCULAR VOLUME 100.6 FL (80.0-94.0); MEAN PLATELET VOLUME 7.6 FL (7.4-10.4); PLATELET COUNT 105 /CUMM (130-400); RBC DISTRIBUTION WIDTH 14.5 % (11.5-14.5); RED BLOOD CELL CT 3.59 /CUMM (4.70-6.10); WHITE BLOOD CELL COUNT 7.3 /CUMM (4.8-10.8)
--- NOTE | 2017-11-13 20:23 | ED GENERAL ADULT ---
History of Present Illness General Chief Complaint: General Adult Stated Complaint: "LIGHT HEADED" Source: patient Exam Limitations: no limitations Vital Signs & Intake/Output Vital Signs & Intake/Output Vital Signs Date Time Temp Pulse Resp B/P B/P Pulse O2 O2 Flow FiO2 Mean Ox Delivery Rate 11/13 2307 98.4 80 16 116/74 96 Room Air 11/13 2123 98.7 75 20 120/80 99 Room Air 11/13 1946 98.2 88 17 114/76 95 Room Air ED Intake and Output 11/14 0000 11/13 1200 Intake Total 0 Output Total Balance 0 Intake, Oral 0 Allergies Coded Allergies: amoxicillin (From AUGMENTIN) (Severe, ANGIOEDEMA, RASH 05/16/15) clavulanic acid (From AUGMENTIN) (Severe, ANGIOEDEMA, RASH 05/16/15) Penicillins (SWELLING 05/16/15) adhesive (RASH - BANDAIDS 11/01/16) Reconcile Medications Albuterol Sulfate (Proventil Hfa) 6.7 GM HFA.AER.AD 2 PUF INH Q4 PRN BREATHING PROBLEMS (Reported) Apixaban (Eliquis) 5 MG TABLET 1 TAB PO BID BLOOD THINNER (Reported) Divalproex Sodium (Depakote) 125 MG TABLET.DR 1 TAB PO QPM MENTAL HEALTH ( Reported) Divalproex Sodium (Depakote ER) 500 MG TAB.ER.24H 1 TAB PO 4 TIMES/DAY MENTAL HEALTH (Reported) Divalproex Sodium (Depakote Sprinkle) 125 MG CAP.SPRINK 1 CAP PO QPM MENTAL HEALTH (Reported) Ferrous Sulfate 325 MG (65 MG IRON) TABLET 1 TAB PO BID SUPPLEMENT (Reported) Furosemide (Lasix) 20 MG TABLET 4 TAB PO DAILY leg swelling Haloperidol Decanoate 100 MG/1 ML VIAL 0.9 ML IM Q2W MENTAL HEALTH (Reported) Metoprolol Tartrate 50 MG TABLET 1 TAB PO BID HEART/BP (Reported) Trihexyphenidyl HCl 2 MG TABLET 1 TAB PO BID ANTISPASMODIC (Reported) Trihexyphenidyl HCl 2 MG TABLET 2 TAB PO QPM ANTISPASMODIC (Reported) Triage Note: PT TO ED WITH C/O CONTINUED LIGHT HEADEDNESS SINCE HAVING TOOTH EXTRACTED ON SATURDAY. TAKES ELIQUIS AND DID NOT HOLD FOR DENTAL EXTRACTION. SEEN FOR SAME HERE YESTERDAY, GIVEN IVF AND D/C. ALSO STATES DUE TO PACKING IN MOUTH , CANNOT TOLERATE CPAP, AND CANNOT SLEEP. VITALS STABLE IN TRIAGE. BLEEDING CONTROLLED WITH PACKING. Triage Nurses Notes Reviewed? yes Onset: Gradual Duration: day(s): Timing: recent history Injury Environment: home Severity: mild, moderate Modifying Factors: Improves With: rest, other (better w/packing). Associated Symptoms: bleeding from left lower gum HPI: 52 yo gentleman on eliquis, had a tooth extracted from left lower jaw 2 days ago. He notes intermittent bleeding, unremitting. He also notes slight weakness and increased fatigue. He was seen here yesterday, had a benign evaluation and was discharged. He returns with the recurrent bleeding. He notes also that it is difficult for him to tolerate his home cpap. He is otherwise well, without chest pain, dyspnea, fever, chills, abdominal pain. Past History Travel History Traveled to [place] past 21 day No Medical History Any Pertinent Medical History? 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 No Review of Systems Review of Systems Constitutional: Reports: no symptoms. EENTM: Reports: no symptoms. Respiratory: Reports: no symptoms. Cardiovascular: Reports: no symptoms. GI: Reports: no symptoms. Genitourinary: Reports: no symptoms. Musculoskeletal: Reports: no symptoms. Skin: Reports: no symptoms. Neurological/Psychological: Reports: no symptoms. Hematologic/Endocrine: Reports: no symptoms. Immunologic/Allergic: Reports: no symptoms. All Other Systems: Reviewed and Negative Physical Exam Physical Exam General Appearance: well developed/nourished, mild distress Head: atraumatic, normal appearance Eyes: Bilateral: normal appearance. Ears, Nose, Throat: left lower jaw with mild oozing blood, no sign of infection Neck: normal inspection Respiratory: normal breath sounds, chest non-tender, no respiratory distress, quiet respiration, lungs clear Cardiovascular: regular rate/rhythm Gastrointestinal: normal bowel sounds, soft, non-tender, no organomegaly Back: normal inspection, normal range of motion Extremities: normal inspection, normal capillary refill Neurologic/Psych: no motor/sensory deficits, awake, alert, oriented x 3 Skin: intact, normal color, warm/dry Core Measures ACS in differential dx? No CVA/TIA Diagnosis: No Sepsis Present: No Sepsis Focused Exam Completed? No Progress Differential Diagnoses I considered the following diagnoses in my evaluation of the patient: gingival bleeding/post-op bleeding. vs other. Plan of Care: Orders Procedure Date/time Status TROPONIN LEVEL 11/13 1948 Complete LIPASE 11/13 1948 Complete HEPATIC FUNCTION PANEL 11/13 1948 Complete CBC WITHOUT DIFFERENTIAL 11/13 1948 Complete BASIC METABOLIC PANEL 11/13 1948 Complete AMYLASE 11/13 1948 Complete EKG 11/14 1947 Active Laboratory Tests 11/13/17 2012: Anion Gap 9, Estimated GFR > 60, BUN/Creatinine Ratio 27.1 H, Glucose 104 H, Calcium 9.1, Total Bilirubin 0.9, Direct Bilirubin 0.5 H, AST 26, ALT 22, Alkaline Phosphatase 36, Troponin I < 0.01, Total Protein 6.5, Albumin 3.8, Amylase 43, Lipase 117, CBC w Diff NO MAN DIFF REQ, RBC 3.59 L, MCV 100.6 H, MCH 34.3 H, MCHC 34.1, RDW 14.5, MPV 7.6, Gran % 32.1 L, Lymphocytes % 52.4 H , Monocytes % 14.5 H, Eosinophils % 0.6, Basophils % 0.4, Absolute Granulocytes 2.4, Absolute Lymphocytes 3.8 H, Absolute Monocytes 1.1 H, Absolute Eosinophils 0, Absolute Basophils 0 11/13/17 2001: D-Dimer High Sensitivty Cancelled Diagnostic Imaging: Viewed by Me: Radiology Read. Discussed w/RAD: Radiology Read. CXR Impression: PATIENT: JACK HALE PRESENT AGE: 52 PATIENT ACCOUNT NO: [id number] : 63 LOCATION: [facility] ORDERING PHYSICIAN: Yunior Hernandes MD SERVICE DATE: 11/13/17-1949 EXAM TYPE: RAD - XRY- PORTABLE CHEST XRAY EXAMINATION: XR PORTABLE CHEST CLINICAL INFORMATION: Presyncope. COMPARISON: Chest x-ray 07/14/2017 TECHNIQUE: Portable frontal view of the chest was obtained. 8:55 PM FINDINGS: Left diaphragm is elevated. Lung volume is low. There is linear atelectasis at the left lung base. There is no focal consolidation. There is no pulmonary vascular congestion. There is no large pleural effusion. Compared to prior study there has been no change. IMPRESSION: No acute abnormality the chest. DICTATED BY: Yousif Nuno MD DATE/ TIME DICTATED:11/13/172121 ESL TUTOR:TELMA DATE/TIME TRANSCRIBED: 11/13/172121 CONFIDENTIAL, DO NOT COPY WITHOUT APPROPRIATE AUTHORIZATION. < Electronically signed in Other Vendor System> SIGNED BY: Yousif Nuno MD [id number] Initial ED EKG: no acute changes Departure Departure Disposition: HOME OR SELF CARE Condition: Stable Clinical Impression Primary Impression: Postoperative bleeding from mouth Referrals: Royce Vargas MD (PCP/Family) Departure Forms: Customer Survey General Discharge Information Comments 11/13/17, 22:50.... placed gauze and kalstat on area of bleeding in gum... after 30 minutes, excellent hemostasis. pt instructed to stop eliquis x 2 days. Critical Care Note Critical Care Note Critical Care Time: non-applicable
--- NOTE | 2017-11-13 21:27 | RADIOLOGY REPORT ---
EXAMINATION: XR PORTABLE CHEST CLINICAL INFORMATION: Presyncope. COMPARISON: Chest x-ray 07/14/2017 TECHNIQUE: Portable frontal view of the chest was obtained. 8:55 PM FINDINGS: Left diaphragm is elevated. Lung volume is low. There is linear atelectasis at the left lung base. There is no focal consolidation. There is no pulmonary vascular congestion. There is no large pleural effusion. Compared to prior study there has been no change. IMPRESSION: No acute abnormality the chest.
[2017-11-13 23:07] VITALS: BP 116/74
== END 2017-11-13 22:44 ==
LOC: ERH 19:29
PROVIDERS: Pediatrics
DX: K91.840 Postprocedural hemorrhage of a digestive system organ or structure following a digestive system procedure (principal); I48.91 Unspecified atrial fibrillation; J44.9 Chronic obstructive pulmonary disease, unspecified; I10 Essential (primary) hypertension; F25.9 Schizoaffective disorder, unspecified; D64.9 Anemia, unspecified; R60.0 Localized edema
CPT/HCPCS: 71045; 93005; 93010